=== PATIENT | male | born 1940 | race Caucasian/White ===

== ENCOUNTER 2016-04-07 10:24 | Emergency (ER) | payer MEDICARE, OTHER ==
[~2016-04-07 10:24] MED LIST: ACET65TA OR; ALPHAGAN OS; ASPI325T OR; FURO20TA2 OR; GLUC1000 OR; ISOS30BRAN OR; MILKSUS OR; MIRAPEX PO; MULTIVIT PO; NITROSTAT SL; OMEP20TA7 OR; POTA10CA2 OR; PRAV10TA2 OR; SYNT175T OR; TIMO0.5S3 OU; UROXATRAL PO; VICO5TAB OR; ZOLO25TA OR; [UNRECOGNIZED DRUG - OTHER] PO
[2016-04-07 12:01] LABS: ANION GAP 9 MEQ/L (8-16); BLOOD UREA NITROGEN 22 MG/DL (7-18); CALCIUM LEVEL 8.8 MG/DL (8.8-10.2); CARBON DIOXIDE LEVEL 27 MEQ/L (21-32); CHLORIDE LEVEL 106 MEQ/L (98-107); CREATININE FOR GFR 0.97 MG/DL (0.70-1.30); GLOMERULAR FILTRATION RATE > 60.0 (>42); GLUCOSE, FASTING 103 MG/DL (83-110); POTASSIUM SERUM 4.4 MEQ/L (3.5-5.1); SODIUM LEVEL 142 MEQ/L (136-145)
[2016-04-07 12:07] LABS: BASO % 0.7 % (0.0-1.0); EOS # 0.5 K/mm3 (0.0-0.50); EOS % 9.5 % (0.0-3.0); LARGE UNSTAINED CELL # 0.1 K/mm3 (0.0-0.4); LARGE UNSTAINED CELL % 2.2 % (0.0-4.0); LYMPH # 1.8 K/mm3 (1.5-4.5); LYMPH % 33.5 % (24.0-44.0); MEAN CORPUSCULAR HEMOGLOBIN 31.7 pg (27.0-33.0); MEAN CORPUSCULAR HGB CONC 33.9 g/dl (32.0-36.5); MEAN CORPUSCULAR VOLUME 93.7 fl (80.0-96.0); MONO # 0.2 K/mm3 (0.0-0.8); NEUTROPHILS # 2.7 K/mm3 (1.8-7.7); NEUTROPHILS % 50.2 % (36.0-66.0); PLATELET COUNT, AUTOMATED 165 k/mm3 (150-450); RED CELL DISTRIBUTION WIDTH 12.3 % (11.5-14.5); WHITE BLOOD COUNT 5.5 K/mm3 (4.0-10.0)
--- NOTE | 2016-04-07 12:32 | REP ---
CT abdomen pelvis without IV or oral contrast: History: Left flank pain. History of kidney stones. Comparison CT study is from September 12, 2011. CT findings: Preliminary dockmaster radiographs demonstrate clips in the upper abdomen and in the pelvis. The bowel gas pattern is unremarkable. The lung bases are clear. The liver and the spleen are normal in size and homogeneous in texture. There are clips in the gallbladder fossa. A small sliding-type hiatal hernia is noted. No adrenal lesion is seen on either side. Normal caliber aorta is seen with vascular calcification. No hydronephrosis is seen on either side. No intrarenal calculus is seen. There is some cortical atrophy bilaterally. Small and large intestinal bowel loops are normal in the upper abdomen. No abdominal wall defect is seen. Postoperative changes are seen in the mid abdomen anteriorly in the periumbilical region. There is left colonic diverticulosis. A rectosigmoid colonic anastomosis is seen. Some surgical clips are noted in this region. No pelvic mass or pelvic adenopathy is seen. There are a few dystrophic calcifications in the prostate. Urinary bladder is unremarkable. No CT evidence of diverticulitis is seen. There are scattered normal-sized inguinal lymph nodes bilaterally. No adenopathy seen. Impression: No urinary tract calculus or hydronephrosis seen. Post cholecystectomy and left colonic resection and reanastomosis. Left colonic diverticulosis. No acute intra-abdominal abnormality. Small sliding-type hiatal hernia. Signed by Juan Silverman MD 04/07/2016 02:33 P
--- NOTE | 2016-04-07 12:50 | EDDOCDS ---
Physician Documentation [facility] Name: Sid Malik Age: 75 yrs Sex: Male : 1940 Arrival Date: 04/07/2016 Time: 10:24 Bed I2 / M2 Private MD: Omer Pollard Disposition: 04/07/16 12:39 Discharged to Home/Self Care. Impression: Low back pain - left flank pain. - Condition is Stable. - Discharge Instructions: Back Pain, Adult, Musculoskeletal Pain. - Prescriptions for Tylenol- Codeine #3 300-30 mg Oral Tablet - take 1 tablet by ORAL route every 6 hours As needed MDD: 4 tabs; 12 tablet. - Medication Reconciliation, Local Pharmacy Hours form. - Follow up: Emergency Department; When: As needed; Reason: Worsening of conditions. Follow up: Private Physician; When: 2 - 3 days; Reason: Wound/Symptom Recheck, Recheck today's complaints, Continuance of care. - Problem is new. - Symptoms have improved. Historical: - Allergies: Beta-Blockers (Beta-Adrenergic Blocking Agts); contrast media; IODINEIODINE CONTAINING; - Home Meds: 1. alfuzosin 10 mg oral Tb24 1 tab once daily 2. aspirin 325 mg Oral tab 1 tab once daily 3. Centrum oral Unknown daily 4. furosemide 20 mg Oral tab 1 tab once daily 5. isosorbide mononitrate 30 mg Oral Tb24 1 tab once daily 6. Klor-Con 10 10 mEq Oral TbER 1 tab once daily 7. levothyroxine 112 mcg Oral tab 2 tabs once daily 8. Nitrostat 0.4 mg SL subl 1 tab prn 9. omeprazole 20 mg Oral cpDR 1 cap once daily 10. pramipexole 2.25 mg oral Tb24 once daily 11. pravastatin 20 mg oral tab 1 tab once daily 12. travatan 0.004% 1 drop both eyes 13. Zoloft 100 mg Oral tab 1 tab once daily - PMHx: Allergic Rhinitis; CAD; Diabetes Mellitus; Dysthymia; GERD; Glaucoma; Hypercholesterolemia; Hypothyroidism; nephrolithiasis; obstructive uropathy; restless leg syndrome; sleep apnea; temporal arteritis; Kidney stones; Colon cancer; - PSHx: Umbilical hernia repair; Cholecystectomy; Colon resection; Cardiac stents; Cataract Surgery- Bilateral; - Social history: Smoking status: Patient states was never smoker of tobacco. No barriers to communication noted, The patient speaks fluent Scottish. - Family history: Not pertinent. - : The pt / caregiver states he / she is not on anticoagulants. Home medication list is obtained from the patient. - Exposure Risk Screening:: None identified. Vital Signs: 04/07 10:26 BP 147 / 64; Pulse 61; Resp 16; Temp 97(O); Pulse Ox 97% ; Weight 95.25 kg / 209.99 cmb lbs; Height 5 ft. 4 in. (162.56 cm); Pain 7/10; 12:42 BP 122 / 74; Pulse 53; Resp 20; Temp 97.6; Pulse Ox 98% ; Pain 0/10; jam1 10:26 Body Mass Index 36.05 (95.25 kg, 162.56 cm) cmb MDM: 11:15 IV Saline Lock ordered. dt4 11:16 CT ABD & PELVIS: No Contrast Ordered. EDMS 11:16 CBC with Diff Ordered. EDMS 11:16 Basic Metabolic Profile Ordered. EDMS 11:16 Urinalysis Ordered. EDMS 11:16 Urine Culture Ordered. EDMS 11:47 Financial registration complete. lg Signatures: Dispatcher [employer] EDMS Eliot Rosenthal, RN RN Attila Stoner, Scott Reg Lexus Ball PA-C PA-C dt4 Junior Angelo,RN RN jf3 MTDD
--- NOTE | 2016-04-07 12:50 | EDDOCDS ---
Nurse's Notes [facility] Name: Sid Malik Age: 75 yrs Sex: Male : 1940 Arrival Date: 04/07/2016 Time: 10:24 Bed I2 / M2 Private MD: Omer Pollard Diagnosis: Low back pain-left flank pain Presentation: 04/07 10:38 Presenting complaint: Patient states: Left low to mid back pain for 5 days, no injury. dw Adult Sepsis Screening: The patient does not have new or worsening altered mentation. Patient's respiratory rate is less than 22. Systolic blood pressure is greater than 100. Patient has a qSOFA score of 0- Negative Sepsis Screen. Suicide/Homicide risk assessment- the patient denies having any suicidal and/or homicidal ideations and does not present with any other emotional, behavioral or mental health complaints. 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 Transition of care: patient was not received from another setting of care. 10:38 Acuity: LALO Level 3 [facility] 10:38 Method Of Arrival: Walkin/Carried/Asstd dwg Triage Assessment: 10:43 General: Appears in no apparent distress. Pain: Pain currently is 7 out of 10 on a pain dwg scale. Historical: - Allergies: Beta-Blockers (Beta-Adrenergic Blocking Agts); contrast media; IODINEIODINE CONTAINING; - Home Meds: 1. alfuzosin 10 mg oral Tb24 1 tab once daily 2. aspirin 325 mg Oral tab 1 tab once daily 3. Centrum oral Unknown daily 4. furosemide 20 mg Oral tab 1 tab once daily 5. isosorbide mononitrate 30 mg Oral Tb24 1 tab once daily 6. Klor-Con 10 10 mEq Oral TbER 1 tab once daily 7. levothyroxine 112 mcg Oral tab 2 tabs once daily 8. Nitrostat 0.4 mg SL subl 1 tab prn 9. omeprazole 20 mg Oral cpDR 1 cap once daily 10. pramipexole 2.25 mg oral Tb24 once daily 11. pravastatin 20 mg oral tab 1 tab once daily 12. travatan 0.004% 1 drop both eyes 13. Zoloft 100 mg Oral tab 1 tab once daily - PMHx: Allergic Rhinitis; CAD; Diabetes Mellitus; Dysthymia; GERD; Glaucoma; Hypercholesterolemia; Hypothyroidism; nephrolithiasis; obstructive uropathy; restless leg syndrome; sleep apnea; temporal arteritis; Kidney stones; Colon cancer; - PSHx: Umbilical hernia repair; Cholecystectomy; Colon resection; Cardiac stents; Cataract Surgery- Bilateral; - Social history: Smoking status: Patient states was never smoker of tobacco. No barriers to communication noted, The patient speaks fluent Thai. - Family history: Not pertinent. - : The pt / caregiver states he / she is not on anticoagulants. Home medication list is obtained from the patient. - Exposure Risk Screening:: None identified. Screenin:26 Infection Control. cmb 12:47 Screening information is obtained from the patient. Fall risk: No risks identified. jf3 Assistance ADL's: requires no assistance with activities of daily living. Abuse/DV Screen: The patient / caregiver reports he/she is: not in a situation that causes fear, pain or injury. Nutritional screening: No deficits noted. Advance Directives: There is no active DNR order. home support is adequate. Assessment: 11:42 Adult Sepsis Screening: The patient does not have new or worsening altered mentation. jf3 Patient's respiratory rate is less than 22. Systolic blood pressure is greater than 100. Patient has a qSOFA score of 0- Negative Sepsis Screen. General: Appears in no apparent distress, comfortable, Behavior is cooperative. General: pt states back pain increases with twisting motion. Pain: Location: left low back and left mid back Pain currently is 1 out of 10 on a pain scale. At worst was 8 out of 10 on a pain scale. Neurological: Level of Consciousness is awake, alert, Oriented to person, place, time. Cardiovascular: Capillary refill < 3 seconds Heart tones S1 S2 present Chest pain is denied. Respiratory: Airway is patent Respiratory effort is even, unlabored, Respiratory pattern is regular, symmetrical, Breath sounds are clear bilaterally. Respiratory: Denies shortness of breath. GI: Abdomen is obese, Bowel sounds present X 4 quads. Abd is soft and non tender X 4 quads. GI: Denies diarrhea, nausea, vomiting. Derm: Skin is normal. 12:47 General: Appears in no apparent distress, comfortable, Behavior is cooperative. Pain: jf3 Pain currently is 2 out of 10 on a pain scale. Neurological: Level of Consciousness is awake, alert, Oriented to person, place, time. Cardiovascular: Capillary refill < 3 seconds Chest pain is denied. Respiratory: Airway is patent Respiratory effort is even, unlabored, Respiratory pattern is regular, symmetrical. Derm: Skin is normal. Vital Signs: 10:26 BP 147 / 64; Pulse 61; Resp 16; Temp 97(O); Pulse Ox 97% ; Weight 95.25 kg; Height 5 cmb ft. 4 in. (162.56 cm); Pain 7/10; 12:42 BP 122 / 74; Pulse 53; Resp 20; Temp 97.6; Pulse Ox 98% ; Pain 0/10; jam1 10:26 Body Mass Index 36.05 (95.25 kg, 162.56 cm) cmb Vitals: 10:26 Log In Time: April 07, 2016 at 10:24. cmb ED Course: 10:25 Patient visited by Eva Blank. cmb 10:25 Omer Pollard is Private Physician. cmb 10:25 Patient moved to Waiting cmb 10:28 Patient moved to Pre RCE cmb 10:41 Triage Initiated dwg 10:58 Patient moved to Triage 2 srm 11:01 Lexus Redding [facility]. dt4 11:01 Henrique Rowland MD is Attending Physician. dt4 11:01 Patient visited by Lexus Redding PA-C. dt4 11:20 Patient moved to I2 / M2 mb9 11:21 Urinalysis Sent. mb9 11:21 Urine Culture Sent. mb9 11:40 CBC with Diff Sent. dsf 11:40 Basic Metabolic Profile Sent. dsf 11:42 The patient / caregiver is instructed regarding the plan of care and ED course. jf3 11:42 Inserted saline lock: 20 gauge in right antecubital area The patient tolerated the jf3 procedure well. No procedures done that require assistance. 11:44 Patient visited by Junior Angelo RN. jf3 12:47 Discontinued IV lock intact, bleeding controlled, pressure dressing applied, No jf3 redness/swelling at site. Order Results: Lab Order: CBC with Diff; SPEC'M 04/07/16 11:34 Test: WHITE BLOOD COUNT; Value: 5.5; Range: 4.0-10.0; Units: K/mm3; Status: F Test: RED BLOOD COUNT; Value: 4.36; Range: 4.30-6.10; Units: M/mm3; Status: F Test: HEMOGLOBIN; Value: 13.8; Range: 14.0-18.0; Abnormal: Below low normal; Units: g/dl; Status: F Test: HEMATOCRIT; Value: 40.8; Range: 42.0-52.0; Abnormal: Below low normal; Units: %; Status: F Test: MEAN CORPUSCULAR VOLUME; Value: 93.7; Range: 80.0-96.0; Units: fl; Status: F Test: MEAN CORPUSCULAR HEMOGLOBIN; Value: 31.7; Range: 27.0-33.0; Units: pg; Status: F Test: MEAN CORPUSCULAR HGB CONC; Value: 33.9; Range: 32.0-36.5; Units: g/dl; Status: F Test: RED CELL DISTRIBUTION WIDTH; Value: 12.3; Range: 11.5-14.5; Units: %; Status: F Test: PLATELET COUNT, AUTOMATED; Value: 165; Range: 150-450; Units: k/mm3; Status: F Test: NEUTROPHILS %; Value: 50.2; Range: 36.0-66.0; Units: %; Status: F Test: LYMPH %; Value: 33.5; Range: 24.0-44.0; Units: %; Status: F Test: MONO %; Value: 4.0; Range: 0.0-5.0; Units: %; Status: F Test: EOS %; Value: 9.5; Range: 0.0-3.0; Abnormal: Above high normal; Units: %; Status: F Test: BASO %; Value: 0.7; Range: 0.0-1.0; Units: %; Status: F Test: LARGE UNSTAINED CELL %; Value: 2.2; Range: 0.0-4.0; Units: %; Status: F Test: NEUTROPHILS #; Value: 2.7; Range: 1.8-7.7; Units: K/mm3; Status: F Test: LYMPH #; Value: 1.8; Range: 1.5-4.5; Units: K/mm3; Status: F Test: MONO #; Value: 0.2; Range: 0.0-0.8; Units: K/mm3; Status: F Test: EOS #; Value: 0.5; Range: 0.0-0.50; Units: K/mm3; Status: F Test: BASO #; Value: 0.0; Range: 0.0-0.2; Units: K/mm3; Status: F Test: LARGE UNSTAINED CELL #; Value: 0.1; Range: 0.0-0.4; Units: K/mm3; Status: F Lab Order: Basic Metabolic Profile; SPEC'M 04/07/16 11:34 Test: GLUCOSE, FASTING; Value: 103; Range: 83-110; Units: MG/DL; Status: F Test: BLOOD UREA NITROGEN; Value: 22; Range: 7-18; Abnormal: Above high normal; Units: MG/DL; Status: F Test: CREATININE FOR GFR; Value: 0.97; Range: 0.70-1.30; Units: MG/DL; Status: F Test: GLOMERULAR FILTRATION RATE; Value: > 60.0; Range: >42; Status: F Test: SODIUM LEVEL; Value: 142; Range: 136-145; Units: MEQ/L; Status: F Test: POTASSIUM SERUM; Value: 4.4; Range: 3.5-5.1; Units: MEQ/L; Status: F Test: CHLORIDE LEVEL; Value: 106; Range: 98-107; Units: MEQ/L; Status: F Test: CARBON DIOXIDE LEVEL; Value: 27; Range: 21-32; Units: MEQ/L; Status: F Test: ANION GAP; Value: 9; Range: 8-16; Units: MEQ/L; Status: F Test: CALCIUM LEVEL; Value: 8.8; Range: 8.8-10.2; Units: MG/DL; Status: F Test Note: ; Units are mL/min/1.73 m2 Chronic Kidney Disease Staging per NKF: Stage I & II GFR >=60 Normal to Mildly Decreased Stage III GFR 30-59 Moderately Decreased Stage IV GFR 15-29 Severely Decreased Stage V GFR <15 Very Little GFR Left ESRD GFR <15 on [facility] [employer] Lab Order: Urinalysis; SPEC'M 04/07/16 11:17 Test: APPEARANCE, URINE; Value: CLEAR; Range: CLEAR; Status: F Test: COLOR, URINE; Value: YELLOW; Range: YELLOW; Status: F Test: PH,URINE; Value: 5.0; Range: 5.0-9.0; Units: UNITS; Status: F Test: SPECIFIC GRAVITY URINE AUTO; Value: 1.020; Range: 1.002-1.035; Status: F Test: PROTEIN, URINE AUTO; Value: NEGATIVE; Range: NEGATIVE; Units: mg/dL; Status: F Test: GLUCOSE, URINE (UA) AUTO; Value: NEGATIVE; Range: NEGATIVE; Units: mg/dL; Status: F Test: KETONE, URINE AUTO; Value: NEGATIVE; Range: NEGATIVE; Units: mg/dL; Status: F Test: UROBILINOGEN, URINE AUTO; Value: 0.2; Range: 0.0-2.0; Units: mg/dL; Status: F Test: BILIRUBIN, URINE AUTO; Value: NEGATIVE; Range: NEGATIVE; Status: F Test: NITRITE, URINE AUTO; Value: NEGATIVE; Range: NEGATIVE; Status: F Test: LEUKOCYTE ESTERASE, URINE AUTO; Value: NEGATIVE; Range: NEGATIVE; Status: F Test: BLOOD, URINE BLOOD; Value: NEGATIVE; Range: NEGATIVE; Status: F Test: WBC, URINE AUTO; Value: 1; Range: 0-3; Units: /HPF; Status: F Test: RBC, URINE AUTO; Value: 4; Range: 0-3; Abnormal: Above high normal; Units: /HPF; Status: F Test: BACTERIA, URINE AUTO; Value: NEGATIVE; Range: NEGATIVE; Status: F Test: SQUAMOUS EPITHELIAL CELL UR AU; Value: 0; Range: 0-6; Units: /HPF; Status: F Test: MUCUS, URINE; Value: SMALL; Range: NEGATIVE; Status: F Test: HYALINE CAST, URINE AUTO; Value: 0; Range: 0-1; Units: /LPF; Status: F Outcome: 12:39 Discharge ordered by Provider. dt4 12:48 Discharge Assessment: Patient awake, alert and oriented x 3. No cognitive and/or jf3 functional deficits noted. Patient verbalized understanding of disposition instructions. patient administered narcotics - no. The following High Risk Discharge criteria are identified: None. Discharged to home via wheelchair. Condition: good. Discharge instructions given to patient, Instructed on discharge instructions, follow up and referral plans. medication usage, no driving heavy equipment, Demonstrated understanding of instructions, medications, Pt was receptive of discharge instructions/ teaching. CT Study completed. Property :Personal belongings accompany Pt. 12:49 Patient left the ED. jf3 Signatures: Eliot Rosenthal, RN RN clarissag Maryann Hyatt, RN RN Justine Wiley, JUANY TUBE DEPATCHER jam1 María Ordonez,RN RN dsf Eva Blank Diane, PA-C PA-C dt4 Arturo MeierRN RN mb9 Junior AngeloRN RN jf3 MTDD
--- NOTE | 2016-04-09 13:50 | EDDOCDS ---
Nurse's Notes [facility] Name: Sid Malik Age: 75 yrs Sex: Male : 1940 Arrival Date: 04/07/2016 Time: 10:24 Bed I2 / M2 Private MD: Omer Pollard Diagnosis: Low back pain-left flank pain Presentation: 04/07 10:38 Presenting complaint: Patient states: Left low to mid back pain for 5 days, no injury. dw Adult Sepsis Screening: The patient does not have new or worsening altered mentation. Patient's respiratory rate is less than 22. Systolic blood pressure is greater than 100. Patient has a qSOFA score of 0- Negative Sepsis Screen. Suicide/Homicide risk assessment- the patient denies having any suicidal and/or homicidal ideations and does not present with any other emotional, behavioral or mental health complaints. Status: Patient is not a information services assistant or dependent. Transition of care: patient was not received from another setting of care. 10:38 Acuity: LALO Level 3 [facility] 10:38 Method Of Arrival: Walkin/Carried/Asstd dwg Triage Assessment: 10:43 General: Appears in no apparent distress. Pain: Pain currently is 7 out of 10 on a pain dwg scale. Historical: - Allergies: Beta-Blockers (Beta-Adrenergic Blocking Agts); contrast media; IODINEIODINE CONTAINING; - Home Meds: 1. alfuzosin 10 mg oral Tb24 1 tab once daily 2. aspirin 325 mg Oral tab 1 tab once daily 3. Centrum oral Unknown daily 4. furosemide 20 mg Oral tab 1 tab once daily 5. isosorbide mononitrate 30 mg Oral Tb24 1 tab once daily 6. Klor-Con 10 10 mEq Oral TbER 1 tab once daily 7. levothyroxine 112 mcg Oral tab 2 tabs once daily 8. Nitrostat 0.4 mg SL subl 1 tab prn 9. omeprazole 20 mg Oral cpDR 1 cap once daily 10. pramipexole 2.25 mg oral Tb24 once daily 11. pravastatin 20 mg oral tab 1 tab once daily 12. travatan 0.004% 1 drop both eyes 13. Zoloft 100 mg Oral tab 1 tab once daily - PMHx: Allergic Rhinitis; CAD; Diabetes Mellitus; Dysthymia; GERD; Glaucoma; Hypercholesterolemia; Hypothyroidism; nephrolithiasis; obstructive uropathy; restless leg syndrome; sleep apnea; temporal arteritis; Kidney stones; Colon cancer; - PSHx: Umbilical hernia repair; Cholecystectomy; Colon resection; Cardiac stents; Cataract Surgery- Bilateral; - Social history: Smoking status: Patient states was never smoker of tobacco. No barriers to communication noted, The patient speaks fluent Khmer. - Family history: Not pertinent. - : The pt / caregiver states he / she is not on anticoagulants. Home medication list is obtained from the patient. - Exposure Risk Screening:: None identified. Screenin:26 Infection Control. cmb 12:47 Screening information is obtained from the patient. Fall risk: No risks identified. jf3 Assistance ADL's: requires no assistance with activities of daily living. Abuse/DV Screen: The patient / caregiver reports he/she is: not in a situation that causes fear, pain or injury. Nutritional screening: No deficits noted. Advance Directives: There is no active DNR order. home support is adequate. Assessment: 11:42 Adult Sepsis Screening: The patient does not have new or worsening altered mentation. jf3 Patient's respiratory rate is less than 22. Systolic blood pressure is greater than 100. Patient has a qSOFA score of 0- Negative Sepsis Screen. General: Appears in no apparent distress, comfortable, Behavior is cooperative. General: pt states back pain increases with twisting motion. Pain: Location: left low back and left mid back Pain currently is 1 out of 10 on a pain scale. At worst was 8 out of 10 on a pain scale. Neurological: Level of Consciousness is awake, alert, Oriented to person, place, time. Cardiovascular: Capillary refill < 3 seconds Heart tones S1 S2 present Chest pain is denied. Respiratory: Airway is patent Respiratory effort is even, unlabored, Respiratory pattern is regular, symmetrical, Breath sounds are clear bilaterally. Respiratory: Denies shortness of breath. GI: Abdomen is obese, Bowel sounds present X 4 quads. Abd is soft and non tender X 4 quads. GI: Denies diarrhea, nausea, vomiting. Derm: Skin is normal. 12:47 General: Appears in no apparent distress, comfortable, Behavior is cooperative. Pain: jf3 Pain currently is 2 out of 10 on a pain scale. Neurological: Level of Consciousness is awake, alert, Oriented to person, place, time. Cardiovascular: Capillary refill < 3 seconds Chest pain is denied. Respiratory: Airway is patent Respiratory effort is even, unlabored, Respiratory pattern is regular, symmetrical. Derm: Skin is normal. Vital Signs: 10:26 BP 147 / 64; Pulse 61; Resp 16; Temp 97(O); Pulse Ox 97% ; Weight 95.25 kg; Height 5 cmb ft. 4 in. (162.56 cm); Pain 7/10; 12:42 BP 122 / 74; Pulse 53; Resp 20; Temp 97.6; Pulse Ox 98% ; Pain 0/10; jam1 10:26 Body Mass Index 36.05 (95.25 kg, 162.56 cm) cmb Vitals: 10:26 Log In Time: April 07, 2016 at 10:24. cmb ED Course: 10:25 Patient visited by Eva Blank. cmb 10:25 Omer Pollard is Private Physician. cmb 10:25 Patient moved to Waiting cmb 10:28 Patient moved to Pre RCE cmb 10:41 Triage Initiated dwg 10:58 Patient moved to Triage 2 srm 11:01 [facility] dt4 11:01 Henrique Rowland MD is Attending Physician. dt4 11:01 Patient visited by Lexus Redding PA-C. dt4 11:20 Patient moved to I2 / M2 mb9 11:21 Urinalysis Sent. mb9 11:21 Urine Culture Sent. mb9 11:40 CBC with Diff Sent. dsf 11:40 Basic Metabolic Profile Sent. dsf 11:42 The patient / caregiver is instructed regarding the plan of care and ED course. jf3 11:42 Inserted saline lock: 20 gauge in right antecubital area The patient tolerated the jf3 procedure well. No procedures done that require assistance. 11:44 Patient visited by Junior Angelo RN. jf3 12:47 Discontinued IV lock intact, bleeding controlled, pressure dressing applied, No jf3 redness/swelling at site. 13:17 CT ABD & PELVIS: No Contrast Returned. EDMS 13:25 [facility] [place] Agreement was scanned into [employer] and attached to record. lg 04/08 10:01 T-Sheet-- Draft Copy was scanned into [employer] and attached to record. gb 10:01 Radiology Report was scanned into [employer] and attached to record. gb Order Results: Lab Order: CBC with Diff; SPEC'M 04/07/16 11:34 Test: WHITE BLOOD COUNT; Value: 5.5; Range: 4.0-10.0; Units: K/mm3; Status: F Test: RED BLOOD COUNT; Value: 4.36; Range: 4.30-6.10; Units: M/mm3; Status: F Test: HEMOGLOBIN; Value: 13.8; Range: 14.0-18.0; Abnormal: Below low normal; Units: g/dl; Status: F Test: HEMATOCRIT; Value: 40.8; Range: 42.0-52.0; Abnormal: Below low normal; Units: %; Status: F Test: MEAN CORPUSCULAR VOLUME; Value: 93.7; Range: 80.0-96.0; Units: fl; Status: F Test: MEAN CORPUSCULAR HEMOGLOBIN; Value: 31.7; Range: 27.0-33.0; Units: pg; Status: F Test: MEAN CORPUSCULAR HGB CONC; Value: 33.9; Range: 32.0-36.5; Units: g/dl; Status: F Test: RED CELL DISTRIBUTION WIDTH; Value: 12.3; Range: 11.5-14.5; Units: %; Status: F Test: PLATELET COUNT, AUTOMATED; Value: 165; Range: 150-450; Units: k/mm3; Status: F Test: NEUTROPHILS %; Value: 50.2; Range: 36.0-66.0; Units: %; Status: F Test: LYMPH %; Value: 33.5; Range: 24.0-44.0; Units: %; Status: F Test: MONO %; Value: 4.0; Range: 0.0-5.0; Units: %; Status: F Test: EOS %; Value: 9.5; Range: 0.0-3.0; Abnormal: Above high normal; Units: %; Status: F Test: BASO %; Value: 0.7; Range: 0.0-1.0; Units: %; Status: F Test: LARGE UNSTAINED CELL %; Value: 2.2; Range: 0.0-4.0; Units: %; Status: F Test: NEUTROPHILS #; Value: 2.7; Range: 1.8-7.7; Units: K/mm3; Status: F Test: LYMPH #; Value: 1.8; Range: 1.5-4.5; Units: K/mm3; Status: F Test: MONO #; Value: 0.2; Range: 0.0-0.8; Units: K/mm3; Status: F Test: EOS #; Value: 0.5; Range: 0.0-0.50; Units: K/mm3; Status: F Test: BASO #; Value: 0.0; Range: 0.0-0.2; Units: K/mm3; Status: F Test: LARGE UNSTAINED CELL #; Value: 0.1; Range: 0.0-0.4; Units: K/mm3; Status: F Lab Order: Basic Metabolic Profile; [facility]'M 04/07/16 11:34 Test: GLUCOSE, FASTING; Value: 103; Range: 83-110; Units: MG/DL; Status: F Test: BLOOD UREA NITROGEN; Value: 22; Range: 7-18; Abnormal: Above high normal; Units: MG/DL; Status: F Test: CREATININE FOR GFR; Value: 0.97; Range: 0.70-1.30; Units: MG/DL; Status: F Test: GLOMERULAR FILTRATION RATE; Value: > 60.0; Range: >42; Status: F Test: SODIUM LEVEL; Value: 142; Range: 136-145; Units: MEQ/L; Status: F Test: POTASSIUM SERUM; Value: 4.4; Range: 3.5-5.1; Units: MEQ/L; Status: F Test: CHLORIDE LEVEL; Value: 106; Range: 98-107; Units: MEQ/L; Status: F Test: CARBON DIOXIDE LEVEL; Value: 27; Range: 21-32; Units: MEQ/L; Status: F Test: ANION GAP; Value: 9; Range: 8-16; Units: MEQ/L; Status: F Test: CALCIUM LEVEL; Value: 8.8; Range: 8.8-10.2; Units: MG/DL; Status: F Test Note: ; Units are mL/min/1.73 m2 Chronic Kidney Disease Staging per NKF: Stage I & II GFR >=60 Normal to Mildly Decreased Stage III GFR 30-59 Moderately Decreased Stage IV GFR 15-29 Severely Decreased Stage V GFR <15 Very Little GFR Left ESRD GFR <15 on NURSE LICENSED PRACTICAL Lab Order: Urinalysis; SPEC'M 04/07/16 11:17 Test: APPEARANCE, URINE; Value: CLEAR; Range: CLEAR; Status: F Test: COLOR, URINE; Value: YELLOW; Range: YELLOW; Status: F Test: PH,URINE; Value: 5.0; Range: 5.0-9.0; Units: UNITS; Status: F Test: SPECIFIC GRAVITY URINE AUTO; Value: 1.020; Range: 1.002-1.035; Status: F Test: PROTEIN, URINE AUTO; Value: NEGATIVE; Range: NEGATIVE; Units: mg/dL; Status: F Test: GLUCOSE, URINE (UA) AUTO; Value: NEGATIVE; Range: NEGATIVE; Units: mg/dL; Status: F Test: KETONE, URINE AUTO; Value: NEGATIVE; Range: NEGATIVE; Units: mg/dL; Status: F Test: UROBILINOGEN, URINE AUTO; Value: 0.2; Range: 0.0-2.0; Units: mg/dL; Status: F Test: BILIRUBIN, URINE AUTO; Value: NEGATIVE; Range: NEGATIVE; Status: F Test: NITRITE, URINE AUTO; Value: NEGATIVE; Range: NEGATIVE; Status: F Test: LEUKOCYTE ESTERASE, URINE AUTO; Value: NEGATIVE; Range: NEGATIVE; Status: F Test: BLOOD, URINE BLOOD; Value: NEGATIVE; Range: NEGATIVE; Status: F Test: WBC, URINE AUTO; Value: 1; Range: 0-3; Units: /HPF; Status: F Test: RBC, URINE AUTO; Value: 4; Range: 0-3; Abnormal: Above high normal; Units: /HPF; Status: F Test: BACTERIA, URINE AUTO; Value: NEGATIVE; Range: NEGATIVE; Status: F Test: SQUAMOUS EPITHELIAL CELL UR AU; Value: 0; Range: 0-6; Units: /HPF; Status: F Test: MUCUS, URINE; Value: SMALL; Range: NEGATIVE; Status: F Test: HYALINE CAST, URINE AUTO; Value: 0; Range: 0-1; Units: /LPF; Status: F Lab Order: Urine Culture; SPEC'M 04/07/16 11:17 Test: URINE CULTURE; Value: URINE CULTURE RESULT NO GROWTH; Status: F Radiology Order: CT ABD & PELVIS: No Contrast Test: CT ABD & PELVIS: No Contrast REASON FOR EXAMINATION: left flank pain, hx of stones; CT abdomen pelvis without IV or oral contrast:; ; History: Left flank pain. History of kidney stones.; ; Comparison CT study is from September 12, 2011.; ; CT findings: Preliminary senior test engineer radiographs demonstrate clips in the upper; abdomen and in the pelvis. The bowel gas pattern is unremarkable. The lung; bases are clear. The liver and the spleen are normal in size and homogeneous in; texture. There are clips in the gallbladder fossa. A small sliding-type hiatal; hernia is noted. No adrenal lesion is seen on either side. Normal caliber aorta; is seen with vascular calcification.; ; No hydronephrosis is seen on either side. No intrarenal calculus is seen. There; is some cortical atrophy bilaterally. Small and large intestinal bowel loops are; normal in the upper abdomen. No abdominal wall defect is seen. Postoperative; changes are seen in the mid abdomen anteriorly in the periumbilical region.; There is left colonic diverticulosis. A rectosigmoid colonic anastomosis is; seen. Some surgical clips are noted in this region. No pelvic mass or pelvic; adenopathy is seen. There are a few dystrophic calcifications in the prostate.; Urinary bladder is unremarkable. No CT evidence of diverticulitis is seen.; There are scattered normal-sized inguinal lymph nodes bilaterally. No adenopathy; seen.; ; Impression:; ; No urinary tract calculus or hydronephrosis seen. Post cholecystectomy and left; colonic resection and reanastomosis. Left colonic diverticulosis. No acute; intra-abdominal abnormality. Small sliding-type hiatal hernia.; ; ; Signed by; Juan Silverman MD 04/07/2016 02:33 P; Outcome: 04/07 12:39 Discharge ordered by Provider. dt4 12:48 Discharge Assessment: Patient awake, alert and oriented x 3. No cognitive and/or jf3 functional deficits noted. Patient verbalized understanding of disposition instructions. patient administered narcotics - no. The following High Risk Discharge criteria are identified: None. Discharged to home via wheelchair. Condition: good. Discharge instructions given to patient, Instructed on discharge instructions, follow up and referral plans. medication usage, no driving heavy equipment, Demonstrated understanding of instructions, medications, Pt was receptive of discharge instructions/ teaching. CT Study completed. Property :Personal belongings accompany Pt. 12:49 Patient left the ED. jf3 Signatures: Dispatcher [employer] EDMS Eliot Rosenthal, RN RN Maryann Cantu, RN RN Justine Wiley, JUANY CONSERVATION TECHNICIAN jam1 Alaina Romero, Reg Reg gb KirstinAttila gould, Reg Reg lg María Ordonez,RN RN Eva Callahan Diane, PA-C PA-C dt4 Arturo Meier RN RN mb9 Junior AngeloRN RN jf3 Chart Complete MTDD
--- NOTE | 2016-04-09 13:50 | EDDOCDS ---
Physician Documentation [facility] Name: Sid Malik Age: 75 yrs Sex: Male : 1940 Arrival Date: 04/07/2016 Time: 10:24 Bed I2 / M2 Private MD: Omer Pollard Disposition: 04/07/16 12:39 Discharged to Home/Self Care. Impression: Low back pain - left flank pain. - Condition is Stable. - Discharge Instructions: Back Pain, Adult, Musculoskeletal Pain. - Prescriptions for Tylenol- Codeine #3 300-30 mg Oral Tablet - take 1 tablet by ORAL route every 6 hours As needed MDD: 4 tabs; 12 tablet. - Medication Reconciliation, Local Pharmacy Hours form. - Follow up: Emergency Department; When: As needed; Reason: Worsening of conditions. Follow up: Private Physician; When: 2 - 3 days; Reason: Wound/Symptom Recheck, Recheck today's complaints, Continuance of care. - Problem is new. - Symptoms have improved. Historical: - Allergies: Beta-Blockers (Beta-Adrenergic Blocking Agts); contrast media; IODINEIODINE CONTAINING; - Home Meds: 1. alfuzosin 10 mg oral Tb24 1 tab once daily 2. aspirin 325 mg Oral tab 1 tab once daily 3. Centrum oral Unknown daily 4. furosemide 20 mg Oral tab 1 tab once daily 5. isosorbide mononitrate 30 mg Oral Tb24 1 tab once daily 6. Klor-Con 10 10 mEq Oral TbER 1 tab once daily 7. levothyroxine 112 mcg Oral tab 2 tabs once daily 8. Nitrostat 0.4 mg SL subl 1 tab prn 9. omeprazole 20 mg Oral cpDR 1 cap once daily 10. pramipexole 2.25 mg oral Tb24 once daily 11. pravastatin 20 mg oral tab 1 tab once daily 12. travatan 0.004% 1 drop both eyes 13. Zoloft 100 mg Oral tab 1 tab once daily - PMHx: Allergic Rhinitis; CAD; Diabetes Mellitus; Dysthymia; GERD; Glaucoma; Hypercholesterolemia; Hypothyroidism; nephrolithiasis; obstructive uropathy; restless leg syndrome; sleep apnea; temporal arteritis; Kidney stones; Colon cancer; - PSHx: Umbilical hernia repair; Cholecystectomy; Colon resection; Cardiac stents; Cataract Surgery- Bilateral; - Social history: Smoking status: Patient states was never smoker of tobacco. No barriers to communication noted, The patient speaks fluent Palauan. - Family history: Not pertinent. - : The pt / caregiver states he / she is not on anticoagulants. Home medication list is obtained from the patient. - Exposure Risk Screening:: None identified. Vital Signs: 04/07 10:26 BP 147 / 64; Pulse 61; Resp 16; Temp 97(O); Pulse Ox 97% ; Weight 95.25 kg / 209.99 cmb lbs; Height 5 ft. 4 in. (162.56 cm); Pain 7/10; 12:42 BP 122 / 74; Pulse 53; Resp 20; Temp 97.6; Pulse Ox 98% ; Pain 0/10; jam1 10:26 Body Mass Index 36.05 (95.25 kg, 162.56 cm) cmb MDM: 11:15 IV Saline Lock ordered. dt4 11:16 CT ABD & PELVIS: No Contrast Ordered. EDMS 11:16 CBC with Diff Ordered. EDMS 11:16 Basic Metabolic Profile Ordered. EDMS 11:16 Urinalysis Ordered. EDMS 11:16 Urine Culture Ordered. EDMS 11:47 Financial registration complete. lg 13:25 [facility] Payment Agreement was scanned into [employer] and attached to record. lg 04/08 10:01 T-Sheet-- Draft Copy was scanned into [employer] and attached to record. gb 10:01 Radiology Report was scanned into [employer] and attached to record. gb Signatures: Dispatcher [employer] EDMS Eliot Rosenthal RN RN dw Alaina Romero, Reg Reg gb Attila Cali, Reg Reg lg Lexus Redding, PA-C PARebeccaC dt4 Junior Angelo RN RN jf3 The chart was reviewed and I authenticate all verbal orders and agree with the evaluation and treatment provided.Attachments: 04/07 13:25 [facility] [place] lg 04/08 10:01 T-Sheet-- Draft Copy gb Chart Complete MTDD
--- NOTE | 2016-04-09 13:50 | EDDOCDS ---
Physician Documentation [facility] Name: Sid Malik Age: 75 yrs Sex: Male : 1940 Arrival Date: 04/07/2016 Time: 10:24 Bed I2 / M2 Private MD: Omer Pollard Disposition: 04/07/16 12:39 Discharged to Home/Self Care. Impression: Low back pain - left flank pain. - Condition is Stable. - Discharge Instructions: Back Pain, Adult, Musculoskeletal Pain. - Prescriptions for Tylenol- Codeine #3 300-30 mg Oral Tablet - take 1 tablet by ORAL route every 6 hours As needed MDD: 4 tabs; 12 tablet. - Medication Reconciliation, Local Pharmacy Hours form. - Follow up: Emergency Department; When: As needed; Reason: Worsening of conditions. Follow up: Private Physician; When: 2 - 3 days; Reason: Wound/Symptom Recheck, Recheck today's complaints, Continuance of care. - Problem is new. - Symptoms have improved. Historical: - Allergies: Beta-Blockers (Beta-Adrenergic Blocking Agts); contrast media; IODINEIODINE CONTAINING; - Home Meds: 1. alfuzosin 10 mg oral Tb24 1 tab once daily 2. aspirin 325 mg Oral tab 1 tab once daily 3. Centrum oral Unknown daily 4. furosemide 20 mg Oral tab 1 tab once daily 5. isosorbide mononitrate 30 mg Oral Tb24 1 tab once daily 6. Klor-Con 10 10 mEq Oral TbER 1 tab once daily 7. levothyroxine 112 mcg Oral tab 2 tabs once daily 8. Nitrostat 0.4 mg SL subl 1 tab prn 9. omeprazole 20 mg Oral cpDR 1 cap once daily 10. pramipexole 2.25 mg oral Tb24 once daily 11. pravastatin 20 mg oral tab 1 tab once daily 12. travatan 0.004% 1 drop both eyes 13. Zoloft 100 mg Oral tab 1 tab once daily - PMHx: Allergic Rhinitis; CAD; Diabetes Mellitus; Dysthymia; GERD; Glaucoma; Hypercholesterolemia; Hypothyroidism; nephrolithiasis; obstructive uropathy; restless leg syndrome; sleep apnea; temporal arteritis; Kidney stones; Colon cancer; - PSHx: Umbilical hernia repair; Cholecystectomy; Colon resection; Cardiac stents; Cataract Surgery- Bilateral; - Social history: Smoking status: Patient states was never smoker of tobacco. No barriers to communication noted, The patient speaks fluent Ugandan. - Family history: Not pertinent. - : The pt / caregiver states he / she is not on anticoagulants. Home medication list is obtained from the patient. - Exposure Risk Screening:: None identified. Vital Signs: 04/07 10:26 BP 147 / 64; Pulse 61; Resp 16; Temp 97(O); Pulse Ox 97% ; Weight 95.25 kg / 209.99 cmb lbs; Height 5 ft. 4 in. (162.56 cm); Pain 7/10; 12:42 BP 122 / 74; Pulse 53; Resp 20; Temp 97.6; Pulse Ox 98% ; Pain 0/10; jam1 10:26 Body Mass Index 36.05 (95.25 kg, 162.56 cm) cmb MDM: 11:15 IV Saline Lock ordered. dt4 11:16 CT ABD & PELVIS: No Contrast Ordered. EDMS 11:16 CBC with Diff Ordered. EDMS 11:16 Basic Metabolic Profile Ordered. EDMS 11:16 Urinalysis Ordered. EDMS 11:16 Urine Culture Ordered. EDMS 11:47 Financial registration complete. lg 13:25 [facility] Payment Agreement was scanned into [employer] and attached to record. lg 04/08 10:01 T-Sheet-- Draft Copy was scanned into [employer] and attached to record. gb 10:01 Radiology Report was scanned into [employer] and attached to record. gb Signatures: Dispatcher [employer] EDMS Eliot Rosenthal RN RN dw Alaina Romero, Reg Reg gb Attila Cali, Reg Reg lg Lexus Redding, PA-C PARebeccaC dt4 Junior Angelo RN RN jf3 The chart was reviewed and I authenticate all verbal orders and agree with the evaluation and treatment provided.Attachments: 04/07 13:25 [facility] [place] Agreement lg 04/08 10:01 T-Sheet-- Draft Copy gb Chart Complete MTDD
== END 2016-04-07 12:49 | disposition home or self-care (01) ==
LOC: M ED 10:24
DX: M54.9 Dorsalgia, unspecified (principal); J30.9 Allergic rhinitis, unspecified; I25.10 Atherosclerotic heart disease of native coronary artery without angina pectoris; E11.9 Type 2 diabetes mellitus without complications; K21.9 Gastro-esophageal reflux disease without esophagitis; E78.00 Pure hypercholesterolemia, unspecified; E03.9 Hypothyroidism, unspecified; G47.30 Sleep apnea, unspecified; F34.1 Dysthymic disorder; Z87.442 Personal history of urinary calculi; Z85.038 Personal history of other malignant neoplasm of large intestine; N13.9 Obstructive and reflux uropathy, unspecified; G25.81 Restless legs syndrome; Z95.5 Presence of coronary angioplasty implant and graft; Z90.49 Acquired absence of other specified parts of digestive tract; Z79.82 Long term (current) use of aspirin; Z79.899 Other long term (current) drug therapy; Z88.8 Allergy status to other drugs, medicaments and biological substances; Z91.041 Radiographic dye allergy status

== ENCOUNTER → 2016-05-11 | Outpatient (REF) | payer MEDICARE, OTHER ==
[2016-05-11 14:02] LABS: ALBUMIN 3.7 GM/DL (3.2-5.2); ALBUMIN/GLOBULIN RATIO 1.09 (1.00-1.93); ALKALINE PHOSPHATASE 94 U/L (45-117); ALT/SGPT 28 U/L (12-78); ANION GAP 7 MEQ/L (8-16); AST/SGOT 23 U/L (15-37); BILIRUBIN,TOTAL 0.5 MG/DL (0.2-1.0); BLOOD UREA NITROGEN 27 MG/DL (7-18); CALCIUM LEVEL 9.2 MG/DL (8.8-10.2); CARBON DIOXIDE LEVEL 31 MEQ/L (21-32); CHLORIDE LEVEL 107 MEQ/L (98-107); CHOLESTEROL LEVEL 158 MG/DL (<200); CREATININE FOR GFR 1.03 MG/DL (0.70-1.30); GLOMERULAR FILTRATION RATE > 60.0 (>42); GLUCOSE, FASTING 114 MG/DL (83-110); POTASSIUM SERUM 4.5 MEQ/L (3.5-5.1); SODIUM LEVEL 145 MEQ/L (136-145); TOTAL PROTEIN 7.1 GM/DL (6.4-8.2); TRIGLYCERIDES LEVEL 111 MG/DL (<150)
[2016-05-11 14:23] LABS: MEAN CORPUSCULAR HEMOGLOBIN 31.3 pg (27.0-33.0); MEAN CORPUSCULAR HGB CONC 32.9 g/dl (32.0-36.5); MEAN CORPUSCULAR VOLUME 94.9 fl (80.0-96.0); RED CELL DISTRIBUTION WIDTH 12.5 % (11.5-14.5)
== END ==
LOC: M SFHCPLAZ 10:02
PROVIDERS: ATTEND Internal Medicine
DX: G25.81 Restless legs syndrome (principal); E11.9 Type 2 diabetes mellitus without complications; E78.00 Pure hypercholesterolemia, unspecified

== ENCOUNTER → 2016-06-30 | Outpatient (CLI) | payer MEDICARE, OTHER ==
[~2016-06-30] VITALS: Ht 162.6 cm; Wt 99.8 kg
[~2016-06-30] MED LIST changes: +ALFU10TA2 PO; +ASPI325T28 PO; +ISOS30TAB PO; +KLOR20PO12 PO; +LASI20TA PO; +LEVO100T5 PO; +LIDOCAINE 2% INJ 100 MG/5 ML SDV (FOR ANES.) As Ordered ONE; +LR 1,000 ML IV SCH; +META0.52 PO; +NITR4TASL SL; +OMEP40CA2 PO; +PRAV10TA PO; +PROPOFOL 200 MG/20 ML VIAL As Ordered ONE; +SERT-138 PO; +TRAV04OPD OU; +[UNRECOGNIZED DRUG - CODE] PO
[2016-06-30 13:47] VITALS: BP 117/58
--- NOTE | 2016-06-30 14:57 | ROOR ---
Patient Name: Sid Malik Procedure Date: 06/30/2016 12:48 PM Date of : 1940 Age: 75 Room: [facility] Gender: Male Note Status: Finalized Procedure: Colonoscopy Indications: High risk colon cancer surveillance: Personal history of colon cancer, Last colonoscopy: 2012 Providers: Joao Gatica MD Referring MD: Omer Pollard MD Requesting Provider: Medicines: Monitored Anesthesia Care Complications: No immediate complications. Procedure: Pre-Anesthesia Assessment: - Prior to the procedure, a History and Physical was performed, and patient medications and allergies were reviewed. The patient is competent. The risks and benefits of the procedure and the sedation options and risks were discussed with the patient. All questions were answered and informed consent was obtained. Patient identification and proposed procedure were verified by the physician, the nurse and the anesthesiologist in the procedure room. Mental Status Examination: alert and oriented. Airway Examination: normal oropharyngeal airway and neck mobility. CV Examination: regular rate and rhythm. Prophylactic Antibiotics: The patient does not require prophylactic antibiotics. Prior Anticoagulants: The patient has taken no previous anticoagulant or antiplatelet agents. ASA Grade Assessment: III - A patient with severe systemic disease. After reviewing the risks and benefits, the patient was deemed in satisfactory condition to undergo the procedure. The anesthesia plan was to use monitored anesthesia care (MAC). Immediately prior to administration of medications, the patient was re-assessed for adequacy to receive sedatives. The heart rate, respiratory rate, oxygen saturations, blood pressure, adequacy of pulmonary ventilation, and response to care were monitored throughout the procedure. The physical status of the patient was re-assessed after the procedure. The Colonoscope [id number] #[id number] was introduced through the anus and advanced to the cecum, identified by appendiceal orifice and ileocecal valve. The colonoscopy was performed without difficulty. The patient tolerated the procedure well. The quality of the bowel preparation was good. Findings: The perianal and digital rectal examinations were normal. Two sessile polyps were found in the proximal transverse colon and ascending colon. The polyps were 4 to 5 mm in size. These polyps were removed with a cold snare. Resection and retrieval were complete. Estimated blood loss was minimal. Multiple medium-mouthed diverticula were found in the sigmoid colon. There was evidence of a prior functional end-to-end colo-rectal anastomosis at 15 cm proximal to the anus. This was patent and was characterized by healthy appearing mucosa. Impression: - Two 4 to 5 mm polyps in the proximal transverse colon and in the ascending colon, removed with a cold snare. Resected and retrieved. - Diverticulosis in the sigmoid colon. - Patent functional end-to-end colo-rectal anastomosis, characterized by healthy appearing mucosa. Recommendation: - Discharge patient to home. - Resume previous diet. - Continue present medications. - Await pathology results. - Telephone endoscopist for pathology results in 10 days. Joao Gatica MD 06/30/2016 2:56:50 PM Number of Addenda: 0 Note Initiated On: 06/30/2016 12:48 PM Estimated Blood Loss: Estimated blood loss was minimal.
== END ==
LOC: M OPP 12:03
PROVIDERS: ATTEND Surgery
DX: Z12.11 Encounter for screening for malignant neoplasm of colon (principal); Z85.038 Personal history of other malignant neoplasm of large intestine; D12.3 Benign neoplasm of transverse colon; D12.2 Benign neoplasm of ascending colon; Z98.0 Intestinal bypass and anastomosis status; K57.30 Diverticulosis of large intestine without perforation or abscess without bleeding; E07.9 Disorder of thyroid, unspecified; I25.10 Atherosclerotic heart disease of native coronary artery without angina pectoris; G47.30 Sleep apnea, unspecified; E66.9 Obesity, unspecified; G25.81 Restless legs syndrome; M35.3 Polymyalgia rheumatica; Z79.82 Long term (current) use of aspirin; Z79.899 Other long term (current) drug therapy; Z91.041 Radiographic dye allergy status; Z88.8 Allergy status to other drugs, medicaments and biological substances

== ENCOUNTER 2016-08-31 12:36 | Observation (INO) | payer MEDICARE, OTHER ==
[~2016-08-31] VITALS: Ht 193 cm; Wt 103.1 kg
[2016-08-31] VITALS (7 sets, daily range): BP systolic 120–155; BP diastolic 66–76
[~2016-08-31 12:36] MED LIST changes: -LIDOCAINE 2% INJ 100 MG/5 ML SDV (FOR ANES.) As Ordered ONE; -LR 1,000 ML IV SCH; -PROPOFOL 200 MG/20 ML VIAL As Ordered ONE
[2016-08-31] MEDS ORDERED: CENTTAB PO (12:47)
[2016-08-31 13:43] LABS: BASO % 0.4 % (0.0-1.0); EOS # 0.2 K/mm3 (0.0-0.50); EOS % 4.3 % (0.0-3.0); LARGE UNSTAINED CELL # 0.1 K/mm3 (0.0-0.4); LARGE UNSTAINED CELL % 2.3 % (0.0-4.0); LYMPH # 1.4 K/mm3 (1.5-4.5); LYMPH % 32.2 % (24.0-44.0); MEAN CORPUSCULAR HEMOGLOBIN 33.1 pg (27.0-33.0); MEAN CORPUSCULAR HGB CONC 34.9 g/dl (32.0-36.5); MEAN CORPUSCULAR VOLUME 94.8 fl (80.0-96.0); MONO # 0.2 K/mm3 (0.0-0.8); MONO % 4.9 % (0.0-5.0); NEUTROPHILS # 2.3 K/mm3 (1.8-7.7); NEUTROPHILS % 55.9 % (36.0-66.0); PLATELET COUNT, AUTOMATED 151 k/mm3 (150-450); RED CELL DISTRIBUTION WIDTH 12.8 % (11.5-14.5); WHITE BLOOD COUNT 4.2 K/mm3 (4.0-10.0)
--- NOTE | 2016-08-31 13:53 | REP ---
PORTABLE CHEST: AP portable view of the chest is performed and compared to a prior study of 09/21/2013 as well as multiple other prior exams. There is mild bibasilar fibrotic change without evidence of acute infiltrate or pulmonary edema. Heart appears mildly enlarged. Mediastinal silhouette is unchanged. There is calcification of the thoracic aorta. IMPRESSION: Chronic findings without evidence of acute pulmonary disease. Signed by Eliot Kwong MD 08/31/2016 05:13 P
[2016-08-31 13:58] LABS: ALBUMIN 3.4 GM/DL (3.2-5.2); ALBUMIN/GLOBULIN RATIO 0.92 (1.00-1.93); ALKALINE PHOSPHATASE 78 U/L (45-117); ALT/SGPT 23 U/L (12-78); ANION GAP 3 MEQ/L (8-16); BILIRUBIN,DIRECT 0.2 MG/DL (0.0-0.2); BILIRUBIN,TOTAL 0.9 MG/DL (0.2-1.0); BLOOD UREA NITROGEN 31 MG/DL (7-18); CALCIUM LEVEL 8.5 MG/DL (8.8-10.2); CARBON DIOXIDE LEVEL 29 MEQ/L (21-32); CHLORIDE LEVEL 110 MEQ/L (98-107); CREATININE FOR GFR 1.11 MG/DL (0.70-1.30); GLOMERULAR FILTRATION RATE > 60.0 (>42); GLUCOSE, FASTING 98 MG/DL (83-110); POTASSIUM SERUM 3.7 MEQ/L (3.5-5.1); SODIUM LEVEL 142 MEQ/L (136-145); TOTAL PROTEIN 7.1 GM/DL (6.4-8.2)
[2016-08-31 14:03] LABS: AST/SGOT 17 U/L (15-37)
--- NOTE | 2016-08-31 14:54 | REP ---
Bilateral lower extremity Duplex Doppler venous ultrasound: Real time compression and duplex Doppler interrogation of the bilateral lower extremity deep venous system is performed. Bilaterally, the common femoral, superficial femoral and popliteal veins are fully compressible with transducer pressure and demonstrate normal spontaneous and phasic flow, without evidence of deep venous thrombosis. Impression: No evidence of deep venous thrombosis of the bilateral lower extremity femoral popliteal venous system. Signed by Eliot Kwong MD 08/31/2016 02:45 P
[2016-08-31] MEDS ORDERED: IBUP40TA PO (15:59)
[2016-08-31] MEDS ORDERED: CYCLOBENZAPRINE 10 MG TAB PO PRN (16:15)
[2016-08-31] MEDS ORDERED: ACETAMINOPHEN TAB 650MG DOSE (2X325MG) PO PRN (16:15)
[2016-08-31] MEDS ORDERED: ONDANSETRON 4 MG TAB (S0181) PO PRN (16:15)
[2016-08-31] MEDS ORDERED: GLUCOSE 4 GM CHEW TABLET PO PRN (16:15)
[2016-08-31] MEDS ORDERED: ONDANSETRON 4MG/2ML VIAL (J2405) IV PRN (16:15)
[2016-08-31] MEDS ORDERED: GLUCAGON FOR INJ 1 MG VIAL (J1610) SC PRN (16:15)
[2016-08-31] MEDS ORDERED: DEXTROSE 50% 50 ML SYRINGE IV PRN (16:15)
[2016-08-31] MEDS ORDERED: ISOS30TA4 PO (17:18)
[2016-08-31] MEDS: HumaLOG INSULIN (NovoLOG) PER UNIT SC SCH (17:59)
--- NOTE | 2016-08-31 18:18 | ECGEPIP ---
Stationary ECG Study [facility] - ED Test Date: 2016-08-31 Pat Name: WAYLON FRAZIER Department: Room: - Gender: M Telecom Assistant: yenni : 1940 Requested By: Cristy Lim Order Number: [id number] Reading MD: Henrique Rowland Measurements Intervals [place] Rate: 55 P: -66 SC: 219 QRS: -10 QRSD: 96 T: 22 QT: 416 QTc: 399 Interpretive Statements SINUS BRADYCARDIA WITH FIRST DEGREE AV BLOCK NONSPECIFIC T-WAVE ABNORMALITY SIMILAR TO 11/19/15 Electronically Signed On 08-31-2016 18:17:56 EDT by Henrique Rowland
[2016-08-31] MEDS: POTASSIUM CHLORIDE 10 MEQ SR TABLET PO SCH (18:29)
[2016-08-31] MEDS: OMEPRAZOLE 20 MG CAP PO SCH (18:29)
[2016-08-31] MEDS: NS 1,000 ML IV SCH (18:29)
[2016-08-31] MEDS: PRAMIPEXOLE 0.25 MG TAB PO SCH ×2 (20:23→20:40)
[2016-08-31] MEDS: LATANOPROST 0.005% OPHTH SOLN 2.5 ML OU SCH (20:40)
[2016-08-31] MEDS: SERTRALINE 100 MG TAB PO SCH (20:40)
[2016-08-31] MEDS: ASPIRIN ENTERIC 325 MG TAB PO SCH (20:41)
--- NOTE | 2016-08-31 20:50 | HPEPDOC ---
Medical History and Physical Date of Admission Aug 31, 2016 at 16:11 History and Physical HISTORY AND PHYSICAL Date of admission: 08/31/2016 PCP: Dr. 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 He states that this started approximately 3 weeks ago and has been getting progressively worse. He states that the pain is only in his thighs, and does not extend all the way in to his legs, and he describes it as an achy and tired feeling. He states that from the time he enters the store to the time he leaves, his legs get extremely tired and exhausted to the point that he feels that he cannot keep walking. He states that he is now limited to approximately 100 feet. The patient also notes that he has been experiencing some of the same achy and tired symptoms in his arms. He denies any recent medication changes or dosage changes. 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 He denies any drug use and does not drink alcohol. Allergies: B venom, beta blockers, contrast dye, iodine, penicillin Review of systems: General: Negative for fever and chills Eyes: Negative for ocular discharge. Positive for ongoing vision issues that he states he is working with his fund development manager on. ENT: Negative for sore throat and nose bleed Cardiovascular: Negative for chest pain, positive for palpitations Respiratory: Positive for cough and shortness of breath GI: Negative for nausea, vomiting, diarrhea, constipation Musculoskeletal: Positive for chronic back pain Skin: Negative for rash Neuro: Negative for headache and dizziness, positive for lightheadedness and intermittent tingling in his bilateral lower extremities. Psych: Negative for depression and suicidal ideation Endocrine: Negative for polyuria : Negative For dysuria Heme: Negative For bleeding Home meds: See below Physical exam: Vital signs: Vital Sign - Last 24 Hours 08/31/16 08/31/16 08/31/16 08/31/16 12:36 13:11 13:51 13:58 Temp 96.1 Pulse 59 54 Resp 18 B/P (MAP) 136/56 (82) 118/58 (78) Pulse Ox 95 94 96 08/31/16 08/31/16 08/31/16 08/31/16 14:06 14:13 14:21 14:28 Pulse 48 46 B/P (MAP) 118/61 (80) 128/71 (90) Pulse Ox 95 95 08/31/16 08/31/16 08/31/16 08/31/16 14:35 14:36 14:51 14:57 Pulse 50 48 B/P (MAP) 113/57 (75) Pulse Ox 97 95 08/31/16 08/31/16 08/31/16 08/31/16 15:06 15:21 15:28 15:36 Pulse 46 46 48 B/P (MAP) 105/67 (80) Pulse Ox 96 96 97 08/31/16 08/31/16 15:51 19:48 Pulse 48 Pulse Ox 96 O2 Delivery Room Air Gen.: awake, alert, no acute distress Eyes: Extraocular movements intact, normal sclera ENT: Moist mucous membranes Cardiovascular: RRR, no murmurs rubs or gallops Lungs: clear to auscultation bilaterally, no rales, rhonchi, or wheeze Abdomen: Soft, NT/ND, normal BS Musculoskeletal: normal range of motion Extremities: No peripheral edema, strong bilat pedal pulses Neuro: alert and oriented 3, normal speech, no focal deficits, equal 5/5 strength in all extremities, intact finger to nose, no facial droop Psych: Normal mood with congruent affect Labs and radiology: See below BUN 31, creatinine 1.11 D-dimer elevated BNP 128 CK 57 TSH is elevated Troponin negative EKG shows sinus rhythm with first-degree AV block Chest x-ray was unremarkable for acute findings Bilateral lower extremity Dopplers negative for DVT Assessment and plan: 76-year-old male with WINIFRED on BiPAP, history of temporal arteritis, CAD status post cardiac stents, colon cancer status post partial colectomy, depression, hyperlipidemia, hypertension, bradycardia, restless leg syndrome, 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 1. Shortness of breath on exertion: Etiology is unclear at this point. The patient clinically does not appear to be volume overloaded and his BNP is not particularly impressive. Given his elevated d-dimer, I am concerned for possible PE, however, the patient is unable to complete a CTA secondary to his allergy to contrast dye. We have ordered a VQ scan, which cannot be completed until tomorrow morning. In the meantime, we will monitor the patient on telemetry. 2. Achiness and tiredness of the bilateral thighs and bilateral arms: Etiology is unclear at this point. The patient's CK is normal. I do not think that this represents claudication as the patient has strong pedal pulses bilaterally, and his complaints are only of the proximal muscles in his lower extremities. The patient does report that his primary care physician had been concerned that he might have spinal stenosis and that that was contributing to some of his symptoms. He reports that he had an MRI done in May and he is unsure of those results. There is no evidence in our EMR of this MRI, and the patient thinks that he might have had it completed at the neurologist office. Tomorrow, we can attempt to obtain this report. We will also give the patient some Flexeril for this muscle achiness, and we will stop his statin. We will ask PT and OT to work with the patient. 3. Dehydration: The patient's BUN and creatinine are mildly elevated, and the patient does report some dizziness. We will hydrate him with IV fluids and recheck his BMP in the morning. We will hold his home Lasix. 4. Hypothyroidism: The patient's TSH is elevated. We will check a free T4 in the morning, and continue his home Synthroid. 5. Bradycardia: The patient has a known history of this, but he has persistently been in the 40s and 50s while here. I discussed this with the patient's supervisor tan room Dr. Mendez, and he feels that since the patient is not symptomatic from this and that his heart rate has not been in the 30s, that he does not qualify for pacemaker at this time. We will monitor the patient on telemetry, as well as check a free T4. An initial troponin is negative, but we will continue to trend these. The patient does not report any rate suppressing medications on his home med list. 6. CAD status post cardiac stents, hyperlipidemia: The patient is unable to tolerate a beta vasquez. We are holding his statin given his complaints of myalgias. We will continue his home aspirin and imdur. 7. Depression: Continue home Zoloft. 8. Restless leg syndrome: Continue home Mirapex. 9. Tumor on left ear nerve: Patient reports that he has seen an ENT about this, and the ENT advised him that he would not pursue any further treatment of it as it is extremely small and slow growing. 10. Steroid-induced diabetes mellitus: The patient is no longer on steroids, and he does not currently take anything for diabetes. We will monitor with sliding scale insulin. DVT prophylaxis: Lovenox Dispo: placed in observation on the service of Dr. Emanuel CODE STATUS: DO NOT INTUBATE Vital Signs Vital Signs Date Time Temp Pulse Resp B/P (MAP) Pulse Ox O2 Delivery O2 Flow Rate FiO2 08/31/16 19:48 Room Air 08/31/16 15:51 48 96 08/31/16 15:28 105/67 (80) 08/31/16 12:36 96.1 18 Laboratory Data Labs 24H Laboratory Tests 2 08/31/16 13:18: D-Dimer, Quantitative 523.8H 08/31/16 13:23: White Blood Count 4.2, Red Blood Count 3.86L, Hemoglobin 12.7L, Hematocrit 36.6L , Mean Corpuscular Volume 94.8, Mean Corpuscular Hemoglobin 33.1H, Mean Corpuscular Hemoglobin Concent 34.9, Red Cell Distribution Width 12.8, Platelet Count 151, Neutrophils (%) (Auto) 55.9, Lymphocytes (%) (Auto) 32.2, Monocytes ( %) (Auto) 4.9, Eosinophils (%) (Auto) 4.3H, Basophils (%) (Auto) 0.4, Neutrophils # (Auto) 2.3, Lymphocytes # (Auto) 1.4L, Monocytes # (Auto) 0.2, Eosinophils # (Auto) 0.2, Basophils # (Auto) 0.0, Large Unclassified Cells % 2.3 , Large Unclassified Cells # 0.1, Anion Gap 3L, Glomerular Filtration Rate > 60.0, Calcium Level 8.5L, Aspartate Amino Transf (AST/SGOT) 17, Alanine Aminotransferase (ALT/SGPT) 23, Alkaline Phosphatase 78, Total Bilirubin 0.9, Direct Bilirubin 0.2, Total Creatine Kinase 57, Creatine Kinase MB 1.6, Creatine Kinase MB Relative Index 2.80, Troponin I < 0.02, B-Type Natriuretic Peptide 128H, Total Protein 7.1, Albumin 3.4, Albumin/Globulin Ratio 0.92L, Thyroid Stimulating Hormone (TSH) 4.250H 08/31/16 17:43: Bedside Glucose (Misc Panel) 86 08/31/16 19:08: Total Creatine Kinase 57, Creatine Kinase MB 2.0, Creatine Kinase MB Relative Index 3.50, Troponin I < 0.02 08/31/16 20:16: Bedside Glucose (Misc Panel) 120H CBC/BMP Laboratory Tests 08/31/16 13:23 Red Blood Count 3.86 L, Mean Corpuscular Volume 94.8, Mean Corpuscular Hemoglobin 33.1 H, Mean Corpuscular Hemoglobin Concent 34.9, Red Cell Distribution Width 12.8, Neutrophils (%) (Auto) 55.9, Lymphocytes (%) (Auto) 32.2, Monocytes (%) (Auto) 4.9, Eosinophils (%) (Auto) 4.3 H, Basophils (%) ( Auto) 0.4, Neutrophils # (Auto) 2.3, Lymphocytes # (Auto) 1.4 L, Monocytes # ( Auto) 0.2, Eosinophils # (Auto) 0.2, Basophils # (Auto) 0.0 Microbiology Microbiology 08/31/16 Blood Culture, Received Pending 08/31/16 Blood Culture, Received Pending Home Medications Scheduled Alfuzosin Hydrochloride (Alfuzosin HCl ER) 10 Mg Tab, 10 MG PO QHS Aspirin (Aspirin) 325 Mg Tab, 325 MG PO QPM DINNER TIME Isosorbide Mononitrate (Isosorbide Mononitrate ER) 30 Mg Tab, 30 MG PO DAILY Levothyroxine Sodium (Synthroid) 100 Mcg Tab, 224 MCG PO DAILY Multivitamins (Centrum Silver) 1 Tab Tab, 1 TAB PO DAILY Omeprazole (Omeprazole) 40 Mg Cap, 20 MG PO DAILY Potassium Chloride (Klor-Con) 20 Meq Pow, 10 MEQ PO DAILY Pramipexole Dihydrochloride (Mirapex ER) 2.25 Mg Tab, 2.25 MG PO DAILY Pravastatin Sod (Pravastatin Sodium) 10 Mg Tab, 20 MG PO DAILY Sertraline HCl (Sertraline HCl) 100 Mg Tab, 100 MG PO QHS Travoprost (Travatan Z) 50 Drop/2.5 Ml Soln, 1 DROP OU DAILY Scheduled PRN Furosemide (Lasix) 20 Mg Tab, 20 MG PO DAILY PRN for EDEMA Ibuprofen (Ibuprofen) 400 Mg Tab, 400 MG PO for PAIN Nitroglycerin (Nitrostat) 0.4 Mg Subl, 0.4 MG SL PRN PRN for ANGINA Psyllium (Metamucil) 0.52 Gm Cap, 0.52 GM PO DAILY PRN for CONSTIPATION Allergies Coded Allergies: Contrast Media (Verified Allergy, Intermediate, RASH HIVES, 07/14/11) Iodine (Verified Allergy, Intermediate, RASH HIVES, 06/22/12) Bee Venom (Verified Allergy, Unknown, 06/22/12) Penicillins (Verified Allergy, Unknown, 06/23/16) Penicillins Cross Reactors (Verified Allergy, Unknown, 06/22/12) Beta Adrenergic Blockers (Verified Adverse Reaction, Intermediate, DEC HR DEC BP, 06/22/12) JING GORDON Aug 31, 2016 20:50
[2016-08-31] MEDS ORDERED: HumaLOG INSULIN (NovoLOG) PER UNIT SC SCH (21:00)
[2016-08-31] MEDS ORDERED: NITROGLYCERIN 0.4 MG SUBL TABLET As Ordered ONE (21:44)
[2016-08-31] MEDS: NITROGLYCERIN 0.4 MG SUBL TABLET SL PRN ×3 (21:45→21:59)
[2016-09-01 02:15] VITALS: BP 110/61
[2016-09-01 06:00] VITALS: BP 129/59
--- NOTE | 2016-09-01 06:00 | ECGEPIP ---
Stationary ECG Study [facility] - ED Test Date: 2016-08-31 Pat Name: WAYLON FRAZIER Department: Room: - Gender: M Set Rider: : 1940 Requested By: Cristy Lim Order Number: [id number] Reading MD: Henrique Rowland Measurements Intervals [place] Rate: 49 P: -22 [place]: 256 QRS: -15 QRSD: 97 T: 68 QT: 442 QTc: 402 Interpretive Statements SINUS BRADYCARDIA WITH FIRST DEGREE AV BLOCK NONSPECIFIC T-WAVE ABNORMALITY SIMILAR TO PRIOR ON SAME DATE Electronically Signed On 09-01-2016 5:59:39 EDT by Henrique Rowland
[2016-09-01] MEDS: LEVOTHYROXINE 112MCG TABLET (0.112MG) PO SCH (06:07)
[2016-09-01] MEDS: NS 1,000 ML IV SCH (06:07)
[2016-09-01 06:24] LABS: BASO % 0.2 % (0.0-1.0); EOS # 0.2 K/mm3 (0.0-0.50); EOS % 4.3 % (0.0-3.0); LARGE UNSTAINED CELL # 0.1 K/mm3 (0.0-0.4); LARGE UNSTAINED CELL % 2.4 % (0.0-4.0); LYMPH # 1.3 K/mm3 (1.5-4.5); MEAN CORPUSCULAR HEMOGLOBIN 32.1 pg (27.0-33.0); MEAN CORPUSCULAR HGB CONC 33.8 g/dl (32.0-36.5); MONO # 0.2 K/mm3 (0.0-0.8); MONO % 5.4 % (0.0-5.0); NEUTROPHILS # 2.6 K/mm3 (1.8-7.7); NEUTROPHILS % 59.7 % (36.0-66.0); PLATELET COUNT, AUTOMATED 137 k/mm3 (150-450); RED CELL DISTRIBUTION WIDTH 12.8 % (11.5-14.5); WHITE BLOOD COUNT 4.4 K/mm3 (4.0-10.0)
[2016-09-01 06:36] LABS: ANION GAP 4 MEQ/L (8-16); BLOOD UREA NITROGEN 25 MG/DL (7-18); CALCIUM LEVEL 7.9 MG/DL (8.8-10.2); CARBON DIOXIDE LEVEL 28 MEQ/L (21-32); CHLORIDE LEVEL 108 MEQ/L (98-107); CREATININE FOR GFR 0.92 MG/DL (0.70-1.30); FREE T4 1.14 NG/DL (0.76-1.46); GLOMERULAR FILTRATION RATE > 60.0 (>42); GLUCOSE, FASTING 124 MG/DL (83-110); MAGNESIUM LEVEL 1.9 MG/DL (1.8-2.4); POTASSIUM SERUM 4.2 MEQ/L (3.5-5.1); SODIUM LEVEL 140 MEQ/L (136-145)
[2016-09-01] MEDS: ISOSORBIDE MON. (IMDUR) 30 MG XR TAB PO SCH (08:52)
--- NOTE | 2016-09-01 08:58 | REP ---
V/Q SCAN: Following the intravenous administration of 5.5 mCi of technetium-99m tagged MAA and the inhalation of 1 mCi of technetium-99m DTPA aerosol multiple images of the lungs are obtained in various projections. There is a prominent left ventricle causing a matching ventilation and perfusion defect in the left lung base. No areas of V/Q mismatch are seen. IMPRESSION: Low probability of pulmonary embolism. Signed by Eliot Kwong MD 09/01/2016 01:46 P
[2016-09-01] MEDS: POTASSIUM CHLORIDE 10 MEQ SR TABLET PO SCH (09:01)
[2016-09-01] MEDS: MULTIVITAMINS/MINERALS THERAP 1 TAB PO SCH (09:01)
[2016-09-01] MEDS: OMEPRAZOLE 20 MG CAP PO SCH (09:01)
[2016-09-01] MEDS: HumaLOG INSULIN (NovoLOG) PER UNIT SC SCH (09:01)
[2016-09-01] MEDS: PRAMIPEXOLE 0.25 MG TAB PO SCH ×3 (09:02→20:26)
[2016-09-01] MEDS: ENOXAPARIN 40 MG/0.4 ML SYRINGE (J1650) SC SCH (09:02)
[2016-09-01 14:00] VITALS: BP 171/73
[2016-09-01] MEDS ORDERED: FUROSEMIDE 20 MG/2 ML VIAL (J1940) IV ONE (14:00)
[2016-09-01] MEDS ORDERED: FUROSEMIDE 20 MG/2 ML VIAL (J1940) As Ordered ONE (14:37)
--- NOTE | 2016-09-01 15:16 | IPN ---
DATE: 09/01/2016 SUBJECTIVE: The patient tells me that he feels about the same as he did yesterday. He denies chest pain, lightheadedness, dizziness, nausea, vomiting, or diarrhea. His shortness of breath is persistent with dyspnea on exertion. Also, he has had persistent lower extremity pain with ambulating, alleviated by sitting and resting. Otherwise, he feels no different than yesterday. OBJECTIVE: VITAL SIGNS: Temperature 97, pulse 52, respiratory rate 20, blood pressure 129/59, oxygen saturation 96% on room air. GENERAL: He is an obese, elderly, man sitting up in bed. He is in no acute distress. NEUROLOGIC: Cranial nerves II-XII are grossly intact. HEENT: He has moist mucous membranes. He has an enlarged neck. CARDIOVASCULAR: S1, S2. He is bradycardic. No distant heart sounds appreciated. RESPIRATORY: Clear. ABDOMEN: Grossly obese. EXTREMITIES: No clubbing or cyanosis. There is 1+ edema bilaterally. LABORATORY STUDIES: WBC 4.4, hemoglobin 12.1, hematocrit 35.8, platelet count 137. Chemistry panel: Sodium 140, potassium 4.2, chloride 108, bicarbonate 28, BUN 25, creatinine 0.9. Multiple sets of cardiac enzymes are negative. Free T4 within normal limits, TSH which is slightly elevated, BNP which is slightly elevated, an elevated D-dimer. MICROBIOLOGY: Blood cultures are negative thus far. IMAGING STUDIES: The patient did have a chest x-ray which revealed no acute cardiopulmonary disease by the radiology read. However, I feel as if there might be some pulmonary vascular congestion. The patient did have a duplex ultrasound of the lower extremities that did not reveal any DVT. The patient also had a V/Q study performed today which was low probability for PE. ASSESSMENT AND PLAN: This is a 76-year-old man with dyspnea on exertion and lower extremity pain with exertion. PROBLEMS: 1. Dyspnea on exertion. Given that the patient does have some peripheral edema, history of coronary disease and appears as though his weight is up mildly, I will empirically give him 20 mg of IV Lasix to see if he improves with some diuresis. He is not hypoxic and he is able to lay fairly flat at this time which can go against this as an etiology. He had a stress test completed in 2013 which was negative. He may be due for repeat stress testing as he may be showing some anginal symptoms. He had a cardiac catheterization in 2014 also. 2. Lower extremity pain. It appears to be typical for neurogenic claudication. Dr. Omer Pollard apparently had told him in the past that he may have spinal stenosis. I have ordered an MRI of the lumbosacral spine to evaluate this as this certainly goes with this. If the MRI is negative for spinal stenosis in the lumbar region, I would then suspect the next option would be possibly outpatient referral to vascular surgery for evaluation for peripheral vascular disease. 3. Bradycardia. The patient's heart rate has been persistently in the 40s and 50s. This was discussed with Dr. Mendez who felt that the patient was asymptomatic and there was no need for pacemaker or any further monitoring. I will ambulate the patient to see if his heart rate increases with activity. If he has a failure to increase his heart rate with activity then he may warrant reevaluation for potential pacemaker placement. We will discuss further with Dr. Mendez if needed. 4. Coronary artery disease, status post stents in the past. He is unable to tolerate a beta vasquez. We are holding his statin secondary to myalgias. He will be continued on aspirin and Imdur. 5. Depression. He is continued on Zoloft. 6. Restless leg syndrome. He is continued on Mirapex. 7. Schwannoma. He has seen ears, nose and throat (ENT) for this and has been advised that it is slow growing and there is no further intervention planned at this time. 8. Steroid-induced diabetes mellitus. He is on steroids and he is not diabetic. 9. Hypothyroidism. Consider repeating on the outpatient setting. His thyroid-stimulating hormone (TSH) is mildly elevated at this time. He may require titration. 10. Deep vein thrombosis (DVT) prophylaxis. The patient is on Lovenox.
[2016-09-01 16:00] VITALS: BP 134/66
[2016-09-01] MEDS: GABAPENTIN 100 MG CAP PO SCH ×2 (16:37→20:26)
--- NOTE | 2016-09-01 19:18 | REP ---
MRI LUMBAR SPINE WITHOUT CONTRAST: 09/01/2016. Clinical history: Back pain, spinal stenosis. No prior studies available. Technique: Sagittal T1, T2 and STIR images with axial T1 and T2 sequences through the lumbar spine angled through the plane of the disc. Findings: Normal sagittal lordosis is maintained. Vertebral body heights and marrow signal from T12-S3 noted and stable. T11-12 disc space shows some slight narrowing and loss of disc water signal. All of the other disc levels from T12-L1 through L5-S1 show loss of disc water signal with disc height limited from L3-4 through L5-S1, sparing the other two levels. The conus terminates at L1-2 level. There is a disc bulge at T11-12, not causing cord compression or significant central canal stenosis. The foramina are not well evaluated at the edge of the field. At T12-L1, there is no disc bulge or herniation and no spinal or foraminal stenosis. At L1-L2, broad-based disc bulge flattening ventral thecal sac, but not causing central canal stenosis. Foramina appear adequate. At L2-3, there is a mild broad-based disc bulge with small central disc protrusion, although this minimally compresses the thecal sac. The ligamentum flavum and facet hypertrophy contribute to some mild spinal stenosis as well. There is still subarachnoid space present and the edema/fluid in the facet joints. Foramina show encroachment due to combined factors without significant nerve root compression. At L3-4, there is a broad-based disc bulge flattening ventral thecal sac with ligamentum and facet hypertrophy, greater some lateral recess stenosis at this level noted due to combined factors. Central canal is mildly stenotic. Foramina are stenotic bilaterally, although mild. At L4-5, mild diffuse broad-based disc bulge with central disc protrusion, lateral recess stenosis abutting the L5 nerve roots in the central canal. Ligamentum and facet hypertrophy contribute to central canal stenosis. The foramina show encroachment bilaterally, left worse than right. At the L5-S1 level, there is a right paracentral disc protrusion, some disc extrusion as well. This abuts and displaces the right S1 nerve root in the central canal. The left S1 nerve root is abutted, but not displaced by the broad-based disc bulge. The right foramen is mildly narrowed as is the left without nerve root compression. Impression: 1. Multilevel degenerative disc disease with L5-S1 right paracentral disc protrusion with small extrusion abutting and displacing the right S1 nerve root in the canal with mild foraminal encroachment due to combined factors. 2. Central canal stenosis and lateral recess stenosis at L4-L5 due to combined factors. Foramina with loss of perineural fat bilaterally, mildly stenotic. 3. L3-4 shows similar combined factor findings causing central canal and lateral recess stenosis with foraminal encroachment due to these combined factors, representing mild to moderate spinal stenosis. 4. Mild central canal stenosis at L2-L3 due to combined factors with a small central disc protrusion with foramina mildly stenotic due to combined factors, but no nerve root compression. 5. Disc bulge at L1-2 without spinal or significant foraminal stenosis. Signed by Paul Case MD 09/02/2016 11:41 A
[2016-09-01] MEDS: ASPIRIN ENTERIC 325 MG TAB PO SCH (20:26)
[2016-09-01] MEDS: SERTRALINE 100 MG TAB PO SCH (20:26)
[2016-09-01] MEDS: LATANOPROST 0.005% OPHTH SOLN 2.5 ML OU SCH (20:26)
[2016-09-01 22:00] VITALS: BP 129/72
[2016-09-02] MEDS: LEVOTHYROXINE 112MCG TABLET (0.112MG) PO SCH (05:31)
[2016-09-02 06:00] VITALS: BP 133/68
[2016-09-02 06:45] LABS: BASO % 0.3 % (0.0-1.0); EOS # 0.2 K/mm3 (0.0-0.50); LARGE UNSTAINED CELL # 0.1 K/mm3 (0.0-0.4); LARGE UNSTAINED CELL % 2.5 % (0.0-4.0); LYMPH # 1.3 K/mm3 (1.5-4.5); LYMPH % 31.5 % (24.0-44.0); MEAN CORPUSCULAR HEMOGLOBIN 31.6 pg (27.0-33.0); MEAN CORPUSCULAR HGB CONC 32.9 g/dl (32.0-36.5); MEAN CORPUSCULAR VOLUME 96.2 fl (80.0-96.0); MONO # 0.2 K/mm3 (0.0-0.8); MONO % 4.9 % (0.0-5.0); NEUTROPHILS # 2.1 K/mm3 (1.8-7.7); NEUTROPHILS % 55.7 % (36.0-66.0); PLATELET COUNT, AUTOMATED 125 k/mm3 (150-450); RED CELL DISTRIBUTION WIDTH 12.7 % (11.5-14.5); WHITE BLOOD COUNT 3.8 K/mm3 (4.0-10.0)
[2016-09-02 06:55] LABS: ANION GAP 4 MEQ/L (8-16); BLOOD UREA NITROGEN 19 MG/DL (7-18); CALCIUM LEVEL 8.2 MG/DL (8.8-10.2); CARBON DIOXIDE LEVEL 27 MEQ/L (21-32); CHLORIDE LEVEL 108 MEQ/L (98-107); CREATININE FOR GFR 0.98 MG/DL (0.70-1.30); GLOMERULAR FILTRATION RATE > 60.0 (>42); GLUCOSE, FASTING 143 MG/DL (83-110); MAGNESIUM LEVEL 1.9 MG/DL (1.8-2.4); POTASSIUM SERUM 3.9 MEQ/L (3.5-5.1); SODIUM LEVEL 139 MEQ/L (136-145)
[2016-09-02 08:01] LABS: ERYTHROCYTE SEDIMENTATION RATE 70 mm/hr (0-20)
[2016-09-02] MEDS: ENOXAPARIN 40 MG/0.4 ML SYRINGE (J1650) SC SCH (09:01)
[2016-09-02] MEDS: POTASSIUM CHLORIDE 10 MEQ SR TABLET PO SCH (09:01)
[2016-09-02] MEDS: MULTIVITAMINS/MINERALS THERAP 1 TAB PO SCH (09:01)
[2016-09-02] MEDS: OMEPRAZOLE 20 MG CAP PO SCH (09:01)
[2016-09-02] MEDS: PRAMIPEXOLE 0.25 MG TAB PO SCH (09:01)
[2016-09-02] MEDS: GABAPENTIN 100 MG CAP PO SCH (09:01)
[2016-09-02] MEDS ORDERED: GABA-279 PO (09:02)
[2016-09-02 09:51] VITALS: BP 151/78
[2016-09-02] MEDS: ISOSORBIDE MON. (IMDUR) 30 MG XR TAB PO SCH (09:51)
--- NOTE | 2016-09-03 17:47 | DSES ---
DATE OF ADMISSION: 08/31/2016 DATE OF DISCHARGE: 09/02/2016 DISCHARGE DIAGNOSIS: Spinal stenosis. SECONDARY DIAGNOSES: 1. Dyspnea on exertion. 2. Coronary artery disease. 3. Depression. 4. Restless leg syndrome. 5. Schwannoma. 6. Hypothyroidism. HOSPITAL COURSE: The patient is a 76-year-old man who had been having lower extremity pain with walking, alleviated by sitting, progressively worsening. He had been told by primary care physician (PCP), Dr. Omer Pollard, in the past that he may be suffering from spinal stenosis. Patient has seen neurology, and has had an MRI but does not know the results. Patient presented to the hospital because his symptoms continued to worsen. He was admitted to the medical/surgical floor. He did have duplex of his lower extremities that did not reveal any deep vein thromboses (DVTs). He had a V/Q scan of the lung that did not reveal any pulmonary embolism (PE). He also had a lumbar MRI that revealed central canal stenosis, L4-5, mildly stenotic, as well as L3-4 moderate spinal stenosis. The patient was started on gabapentin. His symptoms did improve significantly. SUBJECTIVE: This morning the patient tells me he feels better than he has in several weeks. He denies any chest pressure, shortness of breath, lightheadedness, dizziness, nausea, vomiting. He tells me he has been up ambulating without difficulty today. OBJECTIVE: VITAL SIGNS: Temperature 98.6, pulse 53, respiratory rate 20, blood pressure (BP) 153/68, oxygen saturation 97% on room air. GENERAL: He is a pleasant, obese, elderly man lying in his bed at a 60-degree angle watching television. He is in no distress. HEENT: Cranial nerves II-XII are grossly intact. He has an enlarged neck. Moist mucous membranes. CARDIOVASCULAR: S1, S2, bradycardic. No distant heart sounds appreciated. RESPIRATORY: Clear. ABDOMEN: Grossly obese. EXTREMITIES: No clubbing, cyanosis, or edema. LABORATORY STUDIES: WBC 3.8, hemoglobin 12.4, platelet count 125. Chemistry panel: Sodium 139, potassium 3.9, chloride 108, bicarbonate 27, BUN 19, creatinine 0.9, magnesium 1.9. Three sets of cardiac enzymes were negative. He did have a TSH which was slightly elevated at 4.2. He did have an elevated D-dimer of 523.8 in the emergency room. Microbiology: Blood cultures were negative. IMAGING: As outlined above. ASSESSMENT AND PLAN: This is a 76-year-old man with lumbar spinal stenosis as well as dyspnea on exertion. 1. Dyspnea on exertion. Patient's cardiac enzymes were negative. His EKG did not show any concerning findings. He has had a cardiac catheterization in 2013 that did not reveal any significant obstructive disease. He was able to ambulate 500 feet with desaturations whatsoever or significant dyspnea. I have recommended to him that he should likely continue to followup with Dr. Mendez, his surveyor's assistant, and consider having a repeat stress test, as it has been several years. 2. Spinal stenosis, lumbar region. His history as quite typical for neurogenic claudication, and his MRI was also convincing of this in the clinical setting. I have started him on gabapentin, which has improved his symptoms greatly with only 100 mg three times a day. He could have this titrated up further on the outpatient setting. 3. Bradycardia. Patient's heart rate was persistently in the 40s and 50s during his stay without any symptoms. Dr. Mendez, his surveyor's assistant, was notified about this and felt there was no need for anything further to be done, given it was a sinus bradycardia without any symptoms. The patient was ambulated 500 feet, and his heart rate did increase appropriately to the 70s. 4. Coronary artery disease, status post stent. He was unable to tolerate a beta vasquez. His statin as placed on hold during the stay secondary to myalgias. He is continued on aspirin and Imdur. 5. Depression. He is continued on Zoloft. 6. Restless leg syndrome. He is continued on Mirapex. 7. Schwannoma. He follows with ears, nose, and throat (ENT) who informed us that no surgical interventions are needed. 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 He is not diabetic. 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 9. Hypothyroidism. His TSH was mildly elevated. Consider repeating on the outpatient setting and titrating up as indicated with his primary care provider. 10. Deep vein thrombosis (DVT) prophylaxis. Patient has been on Lovenox. DISPOSITION: The patient is being discharged home. He is at his functional baseline. His clinical status is improved. He is to followup with his PCP in 7 days, to followup with neurology within 2 weeks, followup with surveyor's assistant in 2 weeks. His activity and diet are as prior to admission. He is to return to the emergency room (ER) if his symptoms worsen. He is to consider a repeat stress test through his surveyor's assistant's office. MEDICATIONS AT THE TIME OF DISCHARGE: - gabapentin 100 mg three times a day - furazosin 10 mg at bedtime - aspirin 325 mg every evening - Lasix 20 mg daily - ibuprofen 400 mg as needed for pain - isosorbide mononitrate 30 mg daily - levothyroxine 224 mcg daily - multivitamin one tablet daily - Nitrostat 0.4 mg sublingually as needed for angina - omeprazole 20 mg daily - potassium chloride 10 mEq daily - Mirapex 2.25 mg daily - We will discontinue the patient's pravastatin upon discharge - Metamucil 0.5, 2 mg as needed for constipation - sertraline 100 mg at bedtime - Travatan Z one drop each eye daily Greater than 30 minutes spent organizing disposition.
== END 2016-09-02 11:05 | disposition home or self-care (01) ==
LOC: M ED 13:33 → M ED INP 16:11 → M MSPAV 21:02
PROVIDERS: ADMIT Hospitalist; ATTEND Internal Medicine
DX: M48.06 Spinal stenosis, lumbar region (principal); R06.00 Dyspnea, unspecified; I25.10 Atherosclerotic heart disease of native coronary artery without angina pectoris; F32.9 Major depressive disorder, single episode, unspecified; G25.81 Restless legs syndrome; D33.3 Benign neoplasm of cranial nerves; E03.9 Hypothyroidism, unspecified; R00.1 Bradycardia, unspecified; M79.606 Pain in leg, unspecified; M79.601 Pain in right arm; M79.602 Pain in left arm; Z95.5 Presence of coronary angioplasty implant and graft; E09.9 Drug or chemical induced diabetes mellitus without complications; R79.1 Abnormal coagulation profile; G47.33 Obstructive sleep apnea (adult) (pediatric); M31.6 Other giant cell arteritis; Z85.038 Personal history of other malignant neoplasm of large intestine; Z79.899 Other long term (current) drug therapy; Z79.82 Long term (current) use of aspirin; Z88.0 Allergy status to penicillin; Z88.8 Allergy status to other drugs, medicaments and biological substances; Z91.041 Radiographic dye allergy status; Z91.030 Bee allergy status
CPT/HCPCS: 36415; 71010; 72148; 78582; 80048; 80076; 82550; 82553; 83735; 83880; 84439; 84443; 84484; 85025; 85379; 85652; 86140; 87040; 93005; 93041; 93970; 94760; 96360; 96361; 96372; 99285; A9540; A9567; G0378; J1650

== ENCOUNTER → 2016-11-09 | Outpatient (REF) | payer MEDICARE, OTHER ==
[~2016-11-09] MED LIST changes: +CENTTAB PO; +GABA-279 PO; +IBUP40TA PO; +ISOS30TA4 PO; -PRAV10TA PO; +PRAV10TA4 PO
[2016-11-09 12:22] LABS: ALBUMIN 3.4 GM/DL (3.2-5.2); ALKALINE PHOSPHATASE 82 U/L (45-117); ALT/SGPT 23 U/L (12-78); ANION GAP 7 MEQ/L (8-16); AST/SGOT 19 U/L (15-37); BILIRUBIN,TOTAL 0.6 MG/DL (0.2-1.0); BLOOD UREA NITROGEN 24 MG/DL (7-18); CALCIUM LEVEL 8.5 MG/DL (8.8-10.2); CARBON DIOXIDE LEVEL 26 MEQ/L (21-32); CHLORIDE LEVEL 110 MEQ/L (98-107); CHOLESTEROL LEVEL 121 MG/DL (<200); CREATININE FOR GFR 1.05 MG/DL (0.70-1.30); GLOMERULAR FILTRATION RATE > 60.0 (>42); GLUCOSE, FASTING 122 MG/DL (83-110); MAGNESIUM LEVEL 1.9 MG/DL (1.8-2.4); POTASSIUM SERUM 4.1 MEQ/L (3.5-5.1); SODIUM LEVEL 143 MEQ/L (136-145); TOTAL PROTEIN 6.8 GM/DL (6.4-8.2); TRIGLYCERIDES LEVEL 108 MG/DL (<150)
== END ==
LOC: M SFHCPLAZ 09:25
PROVIDERS: ATTEND Internal Medicine
DX: E11.9 Type 2 diabetes mellitus without complications (principal); E78.00 Pure hypercholesterolemia, unspecified; I25.10 Atherosclerotic heart disease of native coronary artery without angina pectoris; E03.9 Hypothyroidism, unspecified

== ENCOUNTER → 2017-04-30 | Outpatient (REF) | payer MEDICARE, OTHER ==
[2017-04-30 14:02] LABS: HEMATOCRIT 40.6 % (42.0-52.0); HEMOGLOBIN 13.2 g/dl (14.0-18.0); MEAN CORPUSCULAR HEMOGLOBIN 30.9 pg (27.0-33.0); MEAN CORPUSCULAR HGB CONC 32.5 g/dl (32.0-36.5); MEAN CORPUSCULAR VOLUME 95.1 fl (80.0-96.0); PLATELET COUNT, AUTOMATED 154 10^3/uL (150-450); RED BLOOD COUNT 4.27 10^6/uL (4.30-6.10); RED CELL DISTRIBUTION WIDTH 12.7 % (11.5-14.5); WHITE BLOOD COUNT 6.1 10^3/uL (4.0-10.0)
[2017-04-30 14:23] LABS: ALBUMIN 3.8 GM/DL (3.2-5.2); ALBUMIN/GLOBULIN RATIO 1.12 (1.00-1.93); ALKALINE PHOSPHATASE 83 U/L (45-117); ALT/SGPT 24 U/L (12-78); ANION GAP 6 MEQ/L (8-16); AST/SGOT 20 U/L (7-37); BILIRUBIN,TOTAL 0.8 MG/DL (0.2-1.0); BLOOD UREA NITROGEN 30 MG/DL (7-18); CARBON DIOXIDE LEVEL 29 MEQ/L (21-32); CHLORIDE LEVEL 108 MEQ/L (98-107); CREATININE FOR GFR 1.04 MG/DL (0.70-1.30); GLOMERULAR FILTRATION RATE > 60.0 (>42); GLUCOSE, FASTING 119 MG/DL (70-100); POTASSIUM SERUM 4.5 MEQ/L (3.5-5.1); SODIUM LEVEL 143 MEQ/L (136-145); TOTAL PROTEIN 7.2 GM/DL (6.4-8.2)
[2017-04-30 14:24] LABS: ESTIMATED AVERAGE GLUCOSE 148 MG/DL (60-110); HEMOGLOBIN A1c 6.8 %
[2017-04-30 14:57] LABS: MALB URINE SIEMENS 10.8 MG/L; MAU/CREAT RATIO 4.6 MCG/MG (0.0-30.0)
== END ==
LOC: M SFHCPLAZ 10:13
DX: G25.81 Restless legs syndrome (principal); E11.9 Type 2 diabetes mellitus without complications
CPT/HCPCS: 80053

== ENCOUNTER 2017-07-12 11:06 | Observation (INO) | payer MEDICARE, OTHER ==
[2017-07-12 11:50] LABS: BASO % 0.2 % (0.0-1.0); EOS % 0.2 % (0.0-3.0); HEMATOCRIT 39.7 % (42.0-52.0); IMMATURE GRANULOCYTE % 0.4 % (0-3.0); LYMPH # 1.4 10^3/uL (1.5-4.5); LYMPH % 14.5 % (24.0-44.0); MEAN CORPUSCULAR HEMOGLOBIN 30.7 pg (27.0-33.0); MEAN CORPUSCULAR HGB CONC 32.7 g/dl (32.0-36.5); MEAN CORPUSCULAR VOLUME 93.6 fl (80.0-96.0); MONO # 0.5 10^3/uL (0.0-0.8); MONO % 5.3 % (0.0-5.0); NEUTROPHILS # 7.5 10^3/uL (1.8-7.7); NEUTROPHILS % 79.4 % (36.0-66.0); PLATELET COUNT, AUTOMATED 115 10^3/uL (150-450); RED BLOOD COUNT 4.24 10^6/uL (4.30-6.10); RED CELL DISTRIBUTION WIDTH 13.2 % (11.5-14.5); WHITE BLOOD COUNT 9.5 10^3/uL (4.0-10.0)
[2017-07-12 11:59] LABS: ANION GAP 10 MEQ/L (8-16); BLOOD UREA NITROGEN 51 MG/DL (7-18); CALCIUM LEVEL 7.7 MG/DL (8.8-10.2); CARBON DIOXIDE LEVEL 22 MEQ/L (21-32); CHLORIDE LEVEL 111 MEQ/L (98-107); CREATININE FOR GFR 1.83 MG/DL (0.70-1.30); GLOMERULAR FILTRATION RATE 38.4 (>42); GLUCOSE, FASTING 152 MG/DL (70-100); POTASSIUM SERUM 3.4 MEQ/L (3.5-5.1); SODIUM LEVEL 143 MEQ/L (136-145)
[2017-07-12] MEDS: NS 1,000 ML IV ×2 (12:45→18:30)
[2017-07-12 13:06] LABS: ALBUMIN 3.4 GM/DL (3.2-5.2); ALBUMIN/GLOBULIN RATIO 0.89 (1.00-1.93); ALKALINE PHOSPHATASE 61 U/L (45-117); ALT/SGPT 32 U/L (12-78); AST/SGOT 46 U/L (7-37); BILIRUBIN,DIRECT 0.2 MG/DL (0.0-0.2); BILIRUBIN,TOTAL 0.8 MG/DL (0.2-1.0); LIPASE 134 U/L (73-393); TOTAL PROTEIN 7.2 GM/DL (6.4-8.2)
[2017-07-12] MEDS: ONDANSETRON 4MG/2ML VIAL (J2405) IV (13:14)
[2017-07-12 13:51] LABS: AMMONIA 27 uMOL/L (<32)
[2017-07-12] MEDS ORDERED: ONDANSETRON 4 MG TAB (S0181) PO (16:45)
[2017-07-12] MEDS ORDERED: ACETAMINOPHEN TAB 650MG DOSE (2X325MG) PO (16:45)
[2017-07-12] MEDS ORDERED: NITROGLYCERIN 0.4 MG SUBL TABLET SL (17:30)
[2017-07-12] MEDS: GABAPENTIN 300 MG CAP PO (18:30)
[2017-07-12] MEDS: POTASSIUM CHLORIDE 10 MEQ SR TABLET PO (18:30)
[2017-07-12] MEDS: ASPIRIN ENTERIC 325 MG TAB PO (18:31)
[2017-07-12] MEDS: SERTRALINE 100 MG TAB PO (18:31)
[2017-07-12] MEDS: OMEPRAZOLE 20 MG CAP PO (18:31)
[2017-07-12] MEDS: MULTIVITAMINS/MINERALS THERAP 1 TAB PO (18:31)
[2017-07-12] MEDS: LATANOPROST 0.005% OPHTH SOLN 2.5 ML OU (22:20)
[2017-07-12] MEDS: HEPARIN SOD (PORCINE) 5000 UNITS/ML VIAL SC (22:20)
[2017-07-13] MEDS: HEPARIN SOD (PORCINE) 5000 UNITS/ML VIAL SC (06:11)
[2017-07-13] MEDS: LEVOTHYROXINE 112MCG TABLET (0.112MG) PO (06:12)
[2017-07-13] MEDS: NS 1,000 ML IV (06:12)
[2017-07-13 06:56] LABS: BASO % 0.2 % (0.0-1.0); EOS # 0.1 10^3/uL (0.0-0.50); HEMATOCRIT 36.6 % (42.0-52.0); HEMOGLOBIN 11.9 g/dl (13.5-17.5); IMMATURE GRANULOCYTE % 0.2 % (0-3.0); LYMPH # 1.7 10^3/uL (1.5-4.5); LYMPH % 29.1 % (24.0-44.0); MEAN CORPUSCULAR HEMOGLOBIN 30.5 pg (27.0-33.0); MEAN CORPUSCULAR HGB CONC 32.5 g/dl (32.0-36.5); MEAN CORPUSCULAR VOLUME 93.8 fl (80.0-96.0); MONO # 0.4 10^3/uL (0.0-0.8); MONO % 7.4 % (0.0-5.0); NEUTROPHILS # 3.6 10^3/uL (1.8-7.7); NEUTROPHILS % 62.1 % (36.0-66.0); PLATELET COUNT, AUTOMATED 103 10^3/uL (150-450); RED CELL DISTRIBUTION WIDTH 13.2 % (11.5-14.5); WHITE BLOOD COUNT 5.8 10^3/uL (4.0-10.0)
[2017-07-13 07:06] LABS: ANION GAP 5 MEQ/L (8-16); BLOOD UREA NITROGEN 45 MG/DL (7-18); CALCIUM LEVEL 7.6 MG/DL (8.8-10.2); CARBON DIOXIDE LEVEL 22 MEQ/L (21-32); CHLORIDE LEVEL 118 MEQ/L (98-107); CREATININE FOR GFR 1.19 MG/DL (0.70-1.30); GLOMERULAR FILTRATION RATE > 60.0 (>42); GLUCOSE, FASTING 82 MG/DL (70-100); POTASSIUM SERUM 3.7 MEQ/L (3.5-5.1); SODIUM LEVEL 145 MEQ/L (136-145)
[2017-07-13] MEDS: OMEPRAZOLE 20 MG CAP PO (08:28)
[2017-07-13] MEDS: SERTRALINE 100 MG TAB PO (08:29)
[2017-07-13] MEDS: MULTIVITAMINS/MINERALS THERAP 1 TAB PO (08:29)
[2017-07-13] MEDS: ASPIRIN ENTERIC 325 MG TAB PO (08:29)
[2017-07-13] MEDS: GABAPENTIN 300 MG CAP PO (08:34)
[2017-07-13] MEDS: PRAMIPEXOLE 1 MG TAB PO ×2 (09:00→13:07)
[2017-07-13] MEDS ORDERED: PRAMIPEXOLE 1 MG TAB PO (09:00)
== END 2017-07-13 13:30 | disposition home or self-care (01) ==
LOC: M ED 11:06 → M ED INP 15:29 → M MS5PR 17:45
DX: N17.9 Acute kidney failure, unspecified (principal); R19.7 Diarrhea, unspecified; I10 Essential (primary) hypertension; E78.5 Hyperlipidemia, unspecified; I25.10 Atherosclerotic heart disease of native coronary artery without angina pectoris; I25.2 Old myocardial infarction; E03.9 Hypothyroidism, unspecified; K21.9 Gastro-esophageal reflux disease without esophagitis; N40.0 Benign prostatic hyperplasia without lower urinary tract symptoms; G25.81 Restless legs syndrome; G47.33 Obstructive sleep apnea (adult) (pediatric); G93.81 Temporal sclerosis; Z79.82 Long term (current) use of aspirin; Z79.899 Other long term (current) drug therapy; Z88.0 Allergy status to penicillin; Z91.030 Bee allergy status; Z88.8 Allergy status to other drugs, medicaments and biological substances; F32.9 Major depressive disorder, single episode, unspecified; Z85.038 Personal history of other malignant neoplasm of large intestine
CPT/HCPCS: 82140

== ENCOUNTER → 2017-07-21 | Outpatient (REF) | payer MEDICARE, OTHER ==
[2017-07-21 16:09] LABS: MEAN CORPUSCULAR HEMOGLOBIN 30.7 pg (27.0-33.0); MEAN CORPUSCULAR HGB CONC 32.4 g/dl (32.0-36.5); MEAN CORPUSCULAR VOLUME 94.6 fl (80.0-96.0); PLATELET COUNT, AUTOMATED 158 10^3/uL (150-450); RED BLOOD COUNT 3.91 10^6/uL (4.30-6.10); RED CELL DISTRIBUTION WIDTH 12.6 % (11.5-14.5); WHITE BLOOD COUNT 4.3 10^3/uL (4.0-10.0)
[2017-07-21 16:13] LABS: ANION GAP 7 MEQ/L (8-16); BLOOD UREA NITROGEN 17 MG/DL (7-18); CALCIUM LEVEL 8.5 MG/DL (8.8-10.2); CARBON DIOXIDE LEVEL 27 MEQ/L (21-32); CHLORIDE LEVEL 111 MEQ/L (98-107); CREATININE FOR GFR 1.09 MG/DL (0.70-1.30); GLOMERULAR FILTRATION RATE > 60.0 (>42); GLUCOSE, FASTING 110 MG/DL (70-100); POTASSIUM SERUM 3.8 MEQ/L (3.5-5.1); SODIUM LEVEL 145 MEQ/L (136-145)
== END ==
LOC: M SFHCPLAZ 13:45
DX: Z86.39 Personal history of other endocrine, nutritional and metabolic disease (principal); Z87.448 Personal history of other diseases of urinary system
CPT/HCPCS: 80048

== ENCOUNTER → 2017-11-04 | Outpatient (REF) | payer MEDICARE, OTHER ==
[2017-11-04 12:15] LABS: HEMATOCRIT 40.2 % (42.0-52.0); MEAN CORPUSCULAR HEMOGLOBIN 30.7 pg (27.0-33.0); MEAN CORPUSCULAR HGB CONC 32.3 g/dl (32.0-36.5); PLATELET COUNT, AUTOMATED 134 10^3/uL (150-450); RED BLOOD COUNT 4.23 10^6/uL (4.30-6.10); WHITE BLOOD COUNT 5.5 10^3/uL (4.0-10.0)
[2017-11-04 12:32] LABS: ALBUMIN 3.5 GM/DL (3.2-5.2); ALBUMIN/GLOBULIN RATIO 0.97 (1.00-1.93); ALKALINE PHOSPHATASE 96 U/L (45-117); ALT/SGPT 21 U/L (12-78); ANION GAP 10 MEQ/L (8-16); AST/SGOT 19 U/L (7-37); BILIRUBIN,TOTAL 0.4 MG/DL (0.2-1.0); BLOOD UREA NITROGEN 24 MG/DL (7-18); CALCIUM LEVEL 8.6 MG/DL (8.8-10.2); CARBON DIOXIDE LEVEL 26 MEQ/L (21-32); CHLORIDE LEVEL 109 MEQ/L (98-107); CHOLESTEROL LEVEL 129 MG/DL (<200); CHOLESTEROL RISK RATIO 3.583 (<5); CREATININE FOR GFR 0.99 MG/DL (0.70-1.30); GLOMERULAR FILTRATION RATE > 60.0 (>42); GLUCOSE, FASTING 120 MG/DL (70-100); HDL CHOLESTEROL 36 MG/DL (>40); LDL CHOLESTEROL 78.2 MG/DL (<100); MAGNESIUM LEVEL 1.9 MG/DL (1.8-2.4); NON-HDL-C 93 MG/DL; POTASSIUM SERUM 4.5 MEQ/L (3.5-5.1); SODIUM LEVEL 145 MEQ/L (136-145); TOTAL PROTEIN 7.1 GM/DL (6.4-8.2); TRIGLYCERIDES LEVEL 74 MG/DL (<150)
[2017-11-04 12:56] LABS: ESTIMATED AVERAGE GLUCOSE 134 MG/DL (60-110); HEMOGLOBIN A1c 6.3 %
== END ==
LOC: M SFHCPLAZ 08:03
DX: G47.30 Sleep apnea, unspecified (principal); E11.9 Type 2 diabetes mellitus without complications; E78.00 Pure hypercholesterolemia, unspecified; G25.81 Restless legs syndrome; E03.9 Hypothyroidism, unspecified
CPT/HCPCS: 83735

== ENCOUNTER 2017-12-16 06:01 | Emergency (ER) | payer MEDICARE, OTHER | END 2017-12-16 07:18 | disposition home or self-care (01) | LOC: M ED 06:01 | DX: S46.001A Unspecified injury of muscle(s) and tendon(s) of the rotator cuff of right shoulder, initial encounter (principal); X50.0XXA Overexertion from strenuous movement or load, initial encounter; Y92.89 Other specified places as the place of occurrence of the external cause; M19.011 Primary osteoarthritis, right shoulder; I10 Essential (primary) hypertension; E11.9 Type 2 diabetes mellitus without complications; F33.9 Major depressive disorder, recurrent, unspecified; E03.9 Hypothyroidism, unspecified; E78.00 Pure hypercholesterolemia, unspecified; K21.9 Gastro-esophageal reflux disease without esophagitis; G47.30 Sleep apnea, unspecified; H40.9 Unspecified glaucoma; Z79.899 Other long term (current) drug therapy; Z79.82 Long term (current) use of aspirin; Z88.8 Allergy status to other drugs, medicaments and biological substances; Z91.041 Radiographic dye allergy status | CPT/HCPCS: 73030 ==

== ENCOUNTER → 2018-03-09 | Outpatient (CLI) | payer MEDICARE, OTHER ==
[~2018-03-09] MED LIST changes: +ASPI-222 PO; -ASPI325T28 PO; +GABA-1171 PO; -GABA-279 PO; +GABA-843 PO; +KLOR10TA76 PO; +LEVO112T25 PO; +OMEP20CA3 PO; +PRAV1TAB39 PO; +ULTR50TA8 PO; +VITMTA PO
--- NOTE | 2018-03-09 09:12 | REP ---
MR LUMBAR SPINE WITHOUT CONTRAST: HISTORY: Back pain. COMPARISON: 09/01/2016. Decreased signal intensity on T2-weighted images is present in the T11-12 through L5-S1 intervertebral discs. The discs are decreased in height. These findings are consistent with disc degeneration. A disc bulge is present at the T11-12 level. There is minimal effacement of the thecal sac without spinal cord compression. The T11 neural foramina are patent on sagittal images. A diffuse disc bulge is present on L1-2 level. There is minimal compression of the thecal sac. There is hypertrophy of the posterior articulating facets. The L1 nerves exit the neural foramina without compression. A diffuse disc bulge and small central disc protrusion are present at the L2-3 level. There is hypertrophy of the ligamenta flava and posterior articulating facets. A 2 mm synovial cyst is present medial to the left L2-3 facet joint. These findings produce mild central canal stenosis. The L2 nerves exit the neural foramina without compression. A diffuse disc bulge is present at the L3-4 level. There is hypertrophy of the ligamenta flava and posterior articulating facets. These findings produce mild central canal stenosis. The L3 nerves exit the neural foramina without compression. A diffuse disc bulge and small disc extrusion central and eccentric to the left are present at the L4-5 level. The disc extrusion is increased in size. There is inferior migration of disc material. There is hypertrophy of the ligamenta flava and posterior articulating facets. These findings produce moderate central canal stenosis. There is compression of the L5 nerves in the L5 lateral recesses. There is compression of the L4 nerves in the neural foramina. A diffuse disc bulge and mild size right paracentral disc protrusion are present at the L5-S1 level. There is mild compression of the thecal sac and right S1 nerve as its exits the thecal sac. There is hypertrophy of the posterior articulating facets. The L5 nerves exit the neural foramina without compression. The conus medullaris is normal in appearance terminating at the level of the L1-2 intervertebral disc. Normal signal intensity is present in the lumbar vertebral bodies. IMPRESSION: 1. Diffuse disc bulge at the L1-2 with minimal thecal sac compression. 2. Mild central canal stenosis at the L2-3 level secondary to disc bulge, disc protrusion, ligamentous, and facet hypertrophy and a left synovial cyst. The left synovial cyst is a new finding. 3. Mild central canal stenosis at the L3-4 level secondary to disc bulge, ligamentous and facet hypertrophy. 4. Moderate central canal stenosis at the L4-5 level secondary to disc bugle, disc extrusion, ligamentous, and facet hypertrophy. There is compression of the L4 nerves in the neural foramina. The disc extrusion is increased in size. 5. Diffuse disc bulge and mild size right paracentral disc protrusion at the L5-S1 level with mild compression of the thecal sac and right S1 nerve as it exits the thecal sac. There is no other significant change. Electronically Signed by Tio Nair MD 03/09/2018 09:25 A
--- NOTE | 2018-03-09 13:39 | REP ---
WHOLE BODY RADIONUCLIDE BONE SCAN: HISTORY: Intervertebral disc degeneration lumbar region. TECHNIQUE: 22.0 mCi technetium 99m MDP is injected, and standard whole body bone scan imaging was acquired. SCINTIGRAPHIC FINDINGS: There is a normal distribution of skeletal tracer with uptake in bilateral kidneys and in the urinary bladder. There is osteoarthritic uptake in both acromioclavicular joints and in both wrists. There is some small joint uptake in the great toe on the right. Mild degenerative uptake is seen in the knees and hips bilaterally. There is no evidence to suggest skeletal metastatic disease. No significant spine uptake is seen. IMPRESSION: No evidence to suggest skeletal metastatic disease. Osteoarthritic pattern of increased uptake as above. Electronically Signed by Juan Silverman MD 03/09/2018 08:34 P
== END ==
LOC: M RAD 07:07
PROVIDERS: ATTEND Physician Assistant
DX: M51.26 Other intervertebral disc displacement, lumbar region (principal); M51.27 Other intervertebral disc displacement, lumbosacral region; M47.896 Other spondylosis, lumbar region; M48.061 Spinal stenosis, lumbar region without neurogenic claudication
CPT/HCPCS: 72148; 78306; A9503

== ENCOUNTER → 2018-05-13 | Outpatient (REF) | payer MEDICARE, OTHER ==
[~2018-05-13] MED LIST changes: -LASI20TA PO; +LASI20TA3 PO
== END ==
LOC: CANPREREF → M SFHCPLAZ 08:39
PROVIDERS: ATTEND Internal Medicine
DX: Z53.9 Procedure and treatment not carried out, unspecified reason (principal); Z85.038 Personal history of other malignant neoplasm of large intestine; E11.9 Type 2 diabetes mellitus without complications; E03.9 Hypothyroidism, unspecified

== ENCOUNTER → 2018-05-13 | Outpatient (REF) | payer MEDICARE, OTHER ==
[2018-05-13 12:22] LABS: HEMATOCRIT 38.3 % (42.0-52.0); HEMOGLOBIN 12.4 g/dl (13.5-17.5); MEAN CORPUSCULAR HEMOGLOBIN 30.3 pg (27.0-33.0); MEAN CORPUSCULAR HGB CONC 32.4 g/dl (32.0-36.5); MEAN CORPUSCULAR VOLUME 93.6 fl (80.0-96.0); PLATELET COUNT, AUTOMATED 142 10^3/uL (150-450); RED BLOOD COUNT 4.09 10^6/uL (4.30-6.10); WHITE BLOOD COUNT 4.9 10^3/uL (4.0-10.0)
[2018-05-13 12:35] LABS: ALBUMIN 3.5 GM/DL (3.2-5.2); ALT/SGPT 25 U/L (12-78); BILIRUBIN,TOTAL 0.3 MG/DL (0.2-1.0); BLOOD UREA NITROGEN 27 MG/DL (7-18); CALCIUM LEVEL 8.3 MG/DL (8.8-10.2); CARBON DIOXIDE LEVEL 29 MEQ/L (21-32); CHLORIDE LEVEL 110 MEQ/L (98-107); CREATININE FOR GFR 1.01 MG/DL (0.70-1.30); GLOMERULAR FILTRATION RATE > 60.0 (>42); GLUCOSE, FASTING 117 MG/DL (70-100); POTASSIUM SERUM 4.8 MEQ/L (3.5-5.1); SODIUM LEVEL 143 MEQ/L (136-145); TOTAL PROTEIN 6.6 GM/DL (6.4-8.2)
[2018-05-13 12:57] LABS: MALB URINE SIEMENS 8.9 MG/L; MAU/CREAT RATIO 6.7 MCG/MG (0.0-30.0)
[2018-05-13 13:09] LABS: HEMOGLOBIN A1c 7.3 %
== END ==
LOC: M LABDRAWP 08:17
PROVIDERS: ATTEND Internal Medicine
DX: Z85.038 Personal history of other malignant neoplasm of large intestine (principal); E11.9 Type 2 diabetes mellitus without complications; E03.9 Hypothyroidism, unspecified

== ENCOUNTER → 2018-08-01 | Outpatient (REF) | payer MEDICARE, OTHER ==
[~2018-08-01] MED LIST changes: -TIMO0.5S3 OU; +TIMO5SOL6 OU
== END ==
LOC: M SFHCPLAZ 09:56
PROVIDERS: ATTEND Internal Medicine
DX: M31.6 Other giant cell arteritis (principal)

== ENCOUNTER 2018-11-25 10:42 | Emergency (ER) | payer MEDICARE, OTHER ==
[~2018-11-25] VITALS: Ht 162.6 cm; Wt 90.9 kg
[~2018-11-25 10:42] MED LIST changes: -ASPI-222 PO; +ASPI-527 PO; -OMEP20CA3 PO; +OMEP20CA4 PO
[2018-11-25] MEDS ORDERED: VOLT1GEL15 TD (11:14)
[2018-11-25] MEDS ORDERED: REFR0.5D8 OP (11:14)
[2018-11-25] MEDS ORDERED: LEVO125T4 (11:14)
[2018-11-25] MEDS ORDERED: ASPI81TA85 PO (11:14)
[2018-11-25] MEDS ORDERED: UROX1TAB8 PO (11:14)
--- NOTE | 2018-11-25 11:50 | REP ---
Back and hip pain. Technique: Frontal view of the pelvis with neutral and frog lateral views of the right hip. Findings: No acute fracture or dislocation. Moderate arthritic degenerative changes includes increase sclerosis, joint space narrowing, and marginal spurring. Impression: Early moderate arthritic changes to the pelvis and right hip. Electronically Signed by Gonzalez Garcia MD 11/25/2018 11:42 A
[2018-11-25] MEDS ORDERED: traMADol 50 MG TAB PO ONE (12:15)
--- NOTE | 2018-11-25 12:46 | REP ---
Clinical: Right lower extremity pain . Technique: Kwong scale and color Doppler evaluation using linear high frequency transducer. Findings: Ultrasound examination of the right lower extremity deep venous structures from the common femoral vein to the popliteal vein demonstrates normal compressibility flow and wave patterns in response to respiration and augmentation. There is no evidence for deep venous thrombosis. Impression: No evidence for deep venous thrombosis. Electronically Signed by Gonzalez Garcia MD 11/25/2018 12:37 P
[2018-11-25] MEDS ORDERED: TRAM50TA2 PO (13:38)
[2018-11-25 14:22] VITALS: BP 150/67
== END 2018-11-25 14:33 | disposition home or self-care (01) ==
LOC: M ED 10:42 → EDBD 10:42 → M ED 14:33
DX: M54.10 Radiculopathy, site unspecified (principal); M79.604 Pain in right leg; E11.9 Type 2 diabetes mellitus without complications; K21.9 Gastro-esophageal reflux disease without esophagitis; I25.10 Atherosclerotic heart disease of native coronary artery without angina pectoris; E78.9 Disorder of lipoprotein metabolism, unspecified; E07.9 Disorder of thyroid, unspecified; G47.30 Sleep apnea, unspecified; M19.90 Unspecified osteoarthritis, unspecified site; M48.00 Spinal stenosis, site unspecified; Z88.8 Allergy status to other drugs, medicaments and biological substances; Z91.041 Radiographic dye allergy status; Z91.030 Bee allergy status; Z79.899 Other long term (current) drug therapy; Z79.82 Long term (current) use of aspirin

== ENCOUNTER → 2018-12-12 | Outpatient (CLI) | payer MEDICARE, OTHER ==
[~2018-12-12] MED LIST changes: +ASPI81TA85 PO; +LEVO125T4; +REFR0.5D8 OP; +TRAM50TA2 PO; +UROX1TAB8 PO; +VOLT1GEL15 TD
[2018-12-12 08:31] LABS: HEMOGLOBIN A1c 6.2 %
[2018-12-12 08:43] LABS: ALBUMIN 3.6 GM/DL (3.2-5.2); ALT/SGPT 24 U/L (12-78); BILIRUBIN,TOTAL 0.6 MG/DL (0.2-1.0); BLOOD UREA NITROGEN 30 MG/DL (7-18); C REACTIVE PROTEIN QUANTITATIV < 0.30 MG/DL (0.00-0.30); CALCIUM LEVEL 8.9 MG/DL (8.8-10.2); CARBON DIOXIDE LEVEL 26 MEQ/L (21-32); CHLORIDE LEVEL 111 MEQ/L (98-107); CHOLESTEROL LEVEL 148 MG/DL (<200); CHOLESTEROL RISK RATIO 3.794 (<5); CREATININE FOR GFR 0.99 MG/DL (0.70-1.30); GLOMERULAR FILTRATION RATE > 60.0 (>42); GLUCOSE, FASTING 114 MG/DL (70-100); HDL CHOLESTEROL 39 MG/DL (>40); LDL CHOLESTEROL 88 MG/DL (<100); MAGNESIUM LEVEL 1.8 MG/DL (1.8-2.4); NON-HDL-C 109 MG/DL; POTASSIUM SERUM 4.4 MEQ/L (3.5-5.1); SODIUM LEVEL 143 MEQ/L (136-145); TOTAL PROTEIN 7.2 GM/DL (6.4-8.2); TRIGLYCERIDES LEVEL 107 MG/DL (<150)
== END ==
LOC: M LAB 07:29
PROVIDERS: ATTEND Internal Medicine
DX: G25.81 Restless legs syndrome (principal); K21.9 Gastro-esophageal reflux disease without esophagitis; E11.9 Type 2 diabetes mellitus without complications; E78.00 Pure hypercholesterolemia, unspecified; I25.10 Atherosclerotic heart disease of native coronary artery without angina pectoris

== ENCOUNTER → 2019-01-11 | Outpatient (CLI) | payer MEDICARE, OTHER ==
[~2019-01-11] MED LIST changes: -OMEP40CA2 PO; +OMEP40CA97 PO
--- NOTE | 2019-01-14 23:05 | ECWPNPC ---
PATIENT NAME: WAYLON FRAZIER : 1940 GENDER: MALE VISIT DATE: 01/11/2019 DISCHARGE DATE: 01/11/19 0000 VISIT LOCKED DATE TIME: PHYSICIAN: CHRISTIANNE AGUIRRE MD RESOURCE: CHRISTIANNE AGUIRRE MD REASON FOR APPOINTMENT 1. LOW BACK PAIN/LUMBAR STENOSIS/LUMBAR INJ HISTORY OF PRESENT ILLNESS PAIN SCREENING: PATIENT HAS A COMPLAINT OF ACUTE OR CHRONIC PAIN :YES 78 YEAR OLD MALE PATIENT WITH A HISTORY OF CHRONIC LOW BACK AND LEG PAIN. THE PATIENT DESCRIBES THE PAIN ACHING, BURNING, AND SHARP WITH A PAIN SCORE OF 0-1/10 DEPENDING ON PHYSICAL ACTIVITY. THE PATIENT STATES HIS PAIN STARTS IN HIS LOW BACK AND RADIATES DOWN MAINLY HIS RIGHT LEG. THE PATIENT SAYS HIS PAIN WAS SEVERE IN THE PAST, HOWEVER PHYSICAL THERAPY HAS HELPED REDUCE HIS PAIN SIGNIFICANTLY. THE PATIENT SAYS HE IS DOING MUCH BETTER RIGHT NOW. THE PATIENT MENTIONS HE HAS A PAST HISTORY OF COLON CANCER IN 1998, THAT HAS BEEN CLEARED. PATIENT DENIES UNEXPLAINABLE WEIGHT LOSS, FEVER, CHILLS, NEW CHANGES ON HIS URINARY OR BOWEL CONTROL. THE PATIENT REPORTS HE HAS BEEN EXPERIENCING URINARY INCONTINENCE FOR A WHILE. FALL RISK SCREENING: SCREENING :NO FALLS REPORTED IN THE LAST YEAR CURRENT MEDICATIONS TAKING MAY HAVE - - CPAP MACHINE TUBING DX: G47.30 DAILY USE TAKING FUROSEMIDE 20 MG TABLET 1 TABLET ORALLY DAILY ON MONDAYS AND THURSDAYS TAKING ASPIRIN 325 MG TABLET 1 TABLET ORALLY ONCE A DAY TAKING CENTRUM SILVER ULTRA MENS TABLET DIRECTED ORALLY TAKING METAMUCIL 30.9 % POWDER DIRECTED ORALLY TAKING TRAVATAN Z 0.004 % SOLUTION 1 DROP INTO BOTH EYES OPHTHALMIC ONCE A DAY TAKING REFRESH 1.4-0.6 % SOLUTION 1 DROP INTO AFFECTED EYE NEEDED OPHTHALMIC DAILY TAKING FLONASE 50 MCG/ACT SUSPENSION 2 SPRAY IN EACH NOSTRIL NASALLY ONCE A DAY TAKING NITROSTAT 0.4 MG TABLET SUBLINGUAL 1 TABLET UNDER THE TONGUE AND ALLOW TO DISSOLVE NEEDED SUBLINGUAL EVERY 0 HRS TAKING OMEPRAZOLE 20 MG CAPSULE DELAYED RELEASE 1 CAPSULE ORALLY ONCE A DAY TAKING SERTRALINE HCL 100 MG TABLET 1 TABLET ORALLY ONCE A DAY TAKING KLOR-CON 10 10 MEQ TABLET EXTENDED RELEASE 1 TABLET ORALLY DAILY TAKING PRAVASTATIN SODIUM 20 MG TABLET 1 TABLET ORALLY ONCE A DAY TAKING TRAMADOL HCL 50 MG TABLET 1 TABLET ORALLY EVERY 6 HOURS NEEDED FOR PAIN. MDD=4 TAKING UROXATRAL 10 MG TABLET EXTENDED RELEASE 24 HOUR 1 TABLET IMMEDIATELY AFTER THE SAME MEAL ORALLY ONCE A DAY TAKING MELOXICAM 7.5 MG TABLET 1 TABLET ORALLY WITH FOOD ONCE A DAY NEEDED TAKING MIRAPEX ER 2.25 MG TABLET EXTENDED RELEASE 24 HOUR 1 TABLET ORALLY ONCE A DAY TAKING SYNTHROID 125 MCG TABLET 2 TABLETS ORALLY ONCE A DAY NOT-TAKING VOLTAREN 1 % GEL 4GRAMS TO BACK TRANSDERMAL THREE TIMES DAILY NOT-TAKING TYLENOL ARTHRITIS PAIN 650 MG TABLET EXTENDED RELEASE DIRECTED ORALLY MEDICATION LIST REVIEWED AND RECONCILED WITH THE PATIENT PAST MEDICAL HISTORY DIABETES MELLITUS CORONARY ARTERY DISEASE OBSTRUCTIVE UROPATHY RESTLESS LEG SYNDROME GASTROESOPHAGEAL REFLUX HISTORY OF COLON CANCER HYPERCHOLESTEROLEMIA HYPOTHYROIDISM, UNSPECIFIED SPINAL STENOSIS OF LUMBAR REGION SLEEP APNEA 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, LUMBAR DYSTHYMIA GLAUCOMA NEPHROLITHIASIS TRIGEMINAL NEURALGIA ALLERGIES CT SCAN DYE: HIVES - ALLERGY IODINE: ALLERGY BETA BLOCKERS: ALLERGY SURGICAL HISTORY TONSILLECTOMY CHILDHOOD PAPILLOTOMY OF URETHRA IN PAST REMOTE RECTAL FISSURE REPAIR REMOTE DUKES B1 COLON CANCER RESECTED FEBRUARY 1999 RIGHT TEMPORAL ARTERY BIOPSY FEBRUARY 2002 CORONARY ARTERY STENT PLACEMENT TO LEFT CIRCUMFLEX CORONARY 11/10/01 CORONARY ARTERY STENT PLACEMENT TO RIGHT CORONARY ARTERY 11/15/2001 BILATERAL CATARACT 2003 CHOLECYSTECTOMY 2004 CIRCUMCISION JUNE 2005 VENTRAL HERNIA REPAIR 07/14/2011 LITHOTRIPSY SEPTEMBER 15, 2011 COLONOSCOPY WITH POLYPECTOMY 01/2013 POSTERIOR INTRAOCULAR LENS REMOVED AND REPLACED WITH AN ANTERIOR CHAMBER LENS, AND HE HAD A VITRECTOMY 11/2017 FAMILY HISTORY FATHER: DIAGNOSED WITH UNSPECIFIED HEART DISEASE MOTHER: UNSPECIFIED HEART DISEASE SIBLINGS: DIABETES, UNSPECIFIED HEART DISEASE MATERNAL GRAND FATHER: DIABETES REMARKABLE FOR THYROID DISEASE IN HIS FATHER-- AT AGE 93 IN 2009, DIABETES ON THE MATERNAL SIDE OF HIS FAMILY, AND A SISTER WITH ANGINA. THREE CHILDREN ARE HEALTHY. SOCIAL HISTORY GENERAL: TOBACCO USE ARE YOU A:NONSMOKER HIV / HEP-C SCREENING HIV TEST OFFERED TO PATIENT:YES DATE OFFERED:07/21/2017 TEST ACCEPTED:NO HEP-C TEST OFFERED TO PATIENT:YES DATE OFFERED:07/21/2017 REASON:PATIENT DECLINED TEST ACCEPTED:NO REASON:PATIENT DECLINED BROCHURE PROVIDED TO PATIENTYES HOUSING: OWNS HOME. LANGUAGE LANGUAGES SPOKEN:SYRIAC DOMESTIC VIOLENCE DO YOU FEEL SAFE IN YOUR ENVIRONMENT?YES BMI CARE GOAL FOLLOW-UP ABOVE NORMAL BMI FOLLOW-UPGIVING ENCOURAGEMENT TO EXERCISE RECREATIONAL DRUG USE DRUG USE?NO LEARNING BARRIERS / SPECIAL NEEDS CHANGE FROM LAST VISIT?NO BARRIERS TO LEARNING?NO HEARING IMPAIRED?YES VISION IMPAIRED?YES COGNITIVELY IMPAIRED?NO :CORRECTIVE LENSES READINESS TO LEARN?YES LEARNING PREFERENCES?NO LEARNING CAPABILITIES PRESENT?YES EMOTIONAL BARRIERS?NO SPECIAL DEVICES?NO AGRICULTURAL SCIENTIST NEEDED?NO PAIN CLINIC PFS, CLERGY, PUBLIC HEALTH REFERRALS HAS THE PATIENT BEEN EDUCATED REGARDING HIS/HER PLAN OF CARE?YES HAS THE PATIENT BEEN EDUCATED REGARDING PAIN, THE RISK FOR PAIN, THE IMPORTANCE OF EFFECTIVE PAIN MANAGEMENT, AND THE PAIN ASSESSMENT PROCESS?YES LATEX QUESTIONNAIRE LATEX ALLERGY : HAVE YOU EVER DEVELOPED ANY TYPE OF REACTION AFTER HANDLING LATEX PRODUCTS SUCH RUBBER GLOVES, CONDOMS, DIAPHRAGMS, BALLOONS, SOCKS, OR UNDERWEAR?NO LATEX ALLERGY : HAVE YOU EVER DEVELOPED ANY TYPE OF REACTION DURING OR AFTER DENTAL APPOINTMENT, VAGINAL/RECTAL EXAMINATION, SURGICAL PROCEDURE, OR ANY OTHER EXPOSURE?NO DATE ASKED : 06/06/2018 LATEX RISK : HAVE YOU EVER HAD ANY DIFFICULTY BREATHING OR HIVES AFTER EATING OR HANDLING ANY FRUITS, OR VEGETABLES; SUCH KIWI, BANANAS, STONE FRUITS, OR CHESTNUTSNO LATEX RISK : DO YOU HAVE A PREVIOUS PERSONAL HISTORY OF MORE THAN NINE SURGERIES, SPINA BIFIDA, OR REPEATED CATHERIZATIONS? YES - PLEASE INDICATE : > 9 SURGERIES LATEX RISK : ARE YOU FREQUENTLY EXPOSED TO LATEX PRODUCTS IN YOUR OCCUPATION?NO ADVANCE DIRECTIVE ADVANCE DIRECTIVE DISCUSSED WITH PATIENT:YES PT HAS HCP FOR [id number] [employer] STATUS: 1962, HAS CHILDREN. ALCOHOL SCREENING DID YOU HAVE A DRINK CONTAINING ALCOHOL IN THE PAST YEAR?NO POINTS0 INTERPRETATIONNEGATIVE OCCUPATION: [employer] WHICH HE CLOSED IN 2009. DOES SNOW PLOWING IN THE WINTER. SEXUAL HX HAD SEX IN THE LAST 12 MONTHS (VAGINAL, ORAL, OR ANAL)?NO HAVE YOU EVER HAD AN STD?NO REVIEWED WITH PATIENT 01/11/19 1615 BV. HOSPITALIZATION/MAJOR DIAGNOSTIC PROCEDURE SURGERY RELATED FACIAL LACERATION FROM FALL 3 STITCHES 2014 SMC-DYSPNEA ON EXERTION. CAD, DEPRESSION, RESTLESS LEG SYNDROME, SCHWANNOMA, HYPOTHYROIDISM 08/31-09/02/2016 REVIEW OF SYSTEMS REVIEWED BY: PROVIDER: CHRISTIANNE AGUIRRE MD . CONSTITUTIONAL: ANY CHANGE IN YOUR MEDICAL CONDITION? YES, PT STATES HE IS SCHEDULED FOR BACK SURGERY IN [place] IN A FEW WEEKS . CHILLS NO . FEVER NO . INFECTION: DO YOU HAVE NEW INFECTIONS? NO . DO YOU HAVE HISTORY OF MRSA? NO . MUSCULOSKELETAL: ANY NEW PATTERNS OF PAIN OR NUMBNESS? NO . SYTEMIC LUPUS NO . GASTROENTEROLOGY: ANY NEW CHANGE IN BOWEL CONTROL? NO . BARRETTS ESOPHAGUS NO . CIRRHOSIS NO . HEPATITIS NO . LIVER FAILURE NO . ACID REFLUX YES, ON MEDICATION . UNEXPLAINED WEIGHT LOSS NO . GENITOURINARY: ANY NEW CHANGE IN BLADDER CONTROL? YES, PT HAS NOTICED INCREASED URGENCY AND INTERMITTENT LOSS OF CONTROL SINCE HIS BACK PAIN HAS GOTTEN WORSE OVER THE PAST 2 MONTHS . IS THERE A CHANCE YOU COULD BE ? NO . HEMATOLOGY/LYMPH: DO YOU TAKE ANY BLOOD THINNERS? (FOR EXAMPLE- COUMADIN, PLAVIX, AGGRENOX, PLATEL, PRADAXA, OR XARELTO) NO . WHEN WAS YOUR LAST DOSE? DATE: TIME: . LOW PLATELET COUNT NO . SICKLE CELL DISEASE NO . VON WILLIEBRANDS NO . FACTOR V LEIDEN NO . THALLASEMIA NO . ANEMIA NO . EASY BRUISING NO . NEUROLOGY: HAVE YOU FALLEN IN THE PAST 12 MONTHS? NO . ANY NEW EXTREMITY NUMBNESS OR WEAKNESS? NO . HEAD INJURY NO . DEMENTIA NO . CEREBRAL PALSY NO . MULTIPLE SCLEROSIS NO . DIZZINESS NO . HEADACHE YES . STROKES NO . VERTIGO NO . CARDIOLOGY: DO YOU HAVE A PACEMAKER OR DEFIBRILLATOR? NO . ANGINA NO . HEART ATTACK NO . HEART SURGERY STENTS PLACED . CONGESTIVE HEART FAILURE/FLUID OVERLOAD YES . CHEST PAIN NO . HIGH BLOOD PRESSURE NO . IRREGULAR HEART BEAT NO . RESPIRATORY: HAVE YOU BEEN SICK IN THE PAST WEEK? NO . FEVER NO . FLU LIKE SYMPTOMS? NO . CPAP YES . BYPAP NO . ASTHMA NO . EMPHYSEMA NO . CHRONIC LUNG DISEASES NO . SHORTNESS OF BREATH ON EXERTION NO . COUGH NO . SNORING NO . INTEGUMENTARY: DO YOU HAVE ANY RASHES OR OPEN SORES? NO . ALLERGIC/IMMUNO: ARE YOU ALLERGIC TO IV DYE? YES . ANY NEW ALLERGIES? NO . PSYCHIATRIC: DO YOU HAVE THOUGHTS OF HURTING YOURSELF OR SOMEONE ELSE? NO . ARE YOU ABUSED, NEGLECTED, OR IN AN UNSAFE ENVIRONMENT? NO . ENDOCRINOLOGY: ARE YOU DIABETIC? NO . THYROID DISORDER HYPOTHYROID . OTHER: DO YOU NEED ANY PRESCRIPTIONS? NO . IF YES, PLEASE LIST: ____ . ANY NEW PROBLEMS WITH YOUR MEDICATIONS? NO . WHEN DID YOU LAST EAT? ____ . WHEN DID YOU LAST DRINK? ____ . WHAT DID YOU LAST DRINK? ____ . NAME OF PERSON DRIVING YOU HOME? ____ . DO YOU HAVE ANY OTHER QUESTIONS OR CONCERNS NO . VITAL SIGNS WT 205.0 LBS, HT 5'4", BMI 35.18 INDEX, BP 128/61 MM HG, HR 57 /MIN, RR 18 /MIN, TEMP 97.4 F, OXYGEN SAT % 99%, NA INITIALS AW 1547, REVIEWED BY: BV. EXAMINATION GENERAL EXAMINATION: PATIENT IS ALERT O X 3 AND COOPERATIVE. LUNGS CLEAR, TO AUSCULTATION. HEART: NO MURMURS OR GALLOPS; FACIAL CRANIAL NERVES ARE GROSSLY NORMAL. GOOD SYMMETRY OF FACIAL MUSCLE MOVEMENT. NORMAL VISUAL ALMARAZ. ANTALGIC WALK. LEG STRENGTH IS ADEQUATE IN BOTH LEGS. STRAIGHT LEG RAISE OF BOTH LEGS ARE NEGATIVE FOR RADICULOPATHY. MRI OF THE LUMBAR SPINE DONE ON 12/05/2018 SHOWS BULGING DISCS AT MULTIPLE LEVELS, RIGHT DISC EXTRUSION AT L5-S1, AND IMPINGEMENT OF NERVE ROOTS WITHIN THE RIGHT ASPECT OF THE SPINAL CANAL. ASSESSMENTS INTERVERTEBRAL DISC DISORDERS WITH RADICULOPATHY, LUMBAR REGION - M51.16 (PRIMARY) INTERVERTEBRAL DISC DISORDERS WITH RADICULOPATHY, LUMBOSACRAL REGION - M51.17 TREATMENT INTERVERTEBRAL DISC DISORDERS WITH RADICULOPATHY, LUMBAR REGION CLINICAL NOTES: WE DISCUSSED SEVERAL ISSUES WITH MR. FRAZIER'S PAIN MANAGEMENT CASE. FOR NOW WE AGREED TO HOLD OFF ON ANY INTERVENTIONS SINCE THE PATIENT IS DOING WELL RIGHT NOW. SHOULD THE PAIN RETURN, I WILL CONSIDER ORDERING PHYSICAL THERAPY FOR THE PATIENT, SINCE IT HAS GREATLY HELPED HIM IN THE PAST. I ADVISED WITH THE PATIENT THAT SHOULD HE EXPERIENCE ANY NEW URINARY OR BOWEL INCONTINENCE, HE IS TO BE SEEN IN THE ER OR BY HIS SURGEON TO CONSIDER SURGICALLY REPAIR THE ISSUE. THE PATIENT WAS ADVISED TO CALL TO BE SEEN IF HIS PAIN RETURNS AND I MAY START HIM ON PHYSICAL THERAPY AGAIN. INSTRUCTIONS WERE GIVEN, QUESTIONS WERE ANSWERED, PATIENT REPORTS UNDERSTANDING AND AGREES WITH THE PLAN. I, GEORGE YAO, DOCUMENTED THE ABOVE INFORMATION ACTING A SCRIBE FOR DR. AGURIRE. I HAVE REVIEWED THE ABOVE DOCUMENT, WRITTEN BY GEORGE YAO SCRIBJono AND I VERIFY THAT IT IS ACCURATE. DEAR KWABENA TRACEY: THANK YOU FOR YOUR KIND REFERRAL OF WAYLON FRAZIER. IF YOU WANT TO DISCUSS HIS CASE WITH ME PLEASE CALL ME AT THE PAIN CENTER AT [phone]. SINCERELY, CHRISTIANNE AGUIRRE MD PAIN MEDICINE . PROCEDURE CODES FA211 ESTABILISHED PATIENT [facility] FACILITY CHARGE G8427 CURRENT MEDS W/DOSAGES DOCUMENTED G8730 PAIN ASSESS POS TOOL F/U PLAN DOC DISPOSITION & COMMUNICATION FOLLOW UP REASON: CALL NEEDED, IF PAIN RETURNS WILL ORDER FOR PT ELECTRONICALLY SIGNED BY CHRISTIANNE AGUIRRE MD, ON 01/14/2019 AT 04:57 PM EDT DISCLAIMER : THIS IS A VISIT SUMMARY EXTRACTED FROM THE [employer] CHART. IT IS NOT A COPY OF THE [employer] PROGRESS NOTE. MTDD
== END ==
LOC: M PAIN 15:30
PROVIDERS: ATTEND Anesthesiology
DX: M51.16 Intervertebral disc disorders with radiculopathy, lumbar region (principal); M51.17 Intervertebral disc disorders with radiculopathy, lumbosacral region; G89.29 Other chronic pain; E11.9 Type 2 diabetes mellitus without complications; G25.81 Restless legs syndrome; K21.9 Gastro-esophageal reflux disease without esophagitis; E78.00 Pure hypercholesterolemia, unspecified; E03.9 Hypothyroidism, unspecified; G47.30 Sleep apnea, unspecified; Z88.3 Allergy status to other anti-infective agents; Z88.8 Allergy status to other drugs, medicaments and biological substances; Z91.041 Radiographic dye allergy status; Z79.82 Long term (current) use of aspirin; Z79.899 Other long term (current) drug therapy

== ENCOUNTER → 2019-02-27 | Outpatient (REF) ==
[~2019-02-27] MED LIST changes: -ALFU10TA2 PO; +ALFU10TA3 PO; +OMEP-172 PO; -OMEP20CA4 PO
[2019-02-27 10:19] LABS: HEMATOCRIT 33.5 % (42.0-52.0); HEMOGLOBIN 10.5 g/dl (13.5-17.5); MEAN CORPUSCULAR HEMOGLOBIN 30.6 pg (27.0-33.0); MEAN CORPUSCULAR HGB CONC 31.3 g/dl (32.0-36.5); MEAN CORPUSCULAR VOLUME 97.7 fl (80.0-96.0); PLATELET COUNT, AUTOMATED 150 10^3/uL (150-450); RED BLOOD COUNT 3.43 10^6/uL (4.30-6.10); WHITE BLOOD COUNT 4.9 10^3/uL (4.0-10.0)
[2019-02-27 11:05] LABS: ALBUMIN 2.6 GM/DL (3.2-5.2); ALT/SGPT 29 U/L (12-78); BILIRUBIN,TOTAL 0.9 MG/DL (0.2-1.0); BLOOD UREA NITROGEN 22 MG/DL (7-18); CARBON DIOXIDE LEVEL 30 MEQ/L (21-32); CHLORIDE LEVEL 108 MEQ/L (98-107); CHOLESTEROL LEVEL 105 MG/DL (<200); CHOLESTEROL RISK RATIO 3.387 (<5); CREATININE FOR GFR 0.93 MG/DL (0.70-1.30); GLOMERULAR FILTRATION RATE > 60.0 (>42); GLUCOSE, FASTING 164 MG/DL (70-100); HDL CHOLESTEROL 31 MG/DL (>40); LDL CHOLESTEROL 49 MG/DL (<100); NON-HDL-C 74 MG/DL; POTASSIUM SERUM 4.1 MEQ/L (3.5-5.1); SODIUM LEVEL 142 MEQ/L (136-145); THYROID STIMULATING HORMONE 0.371 uIU/ML (0.358-3.740); TOTAL PROTEIN 6.1 GM/DL (6.4-8.2); TRIGLYCERIDES LEVEL 125 MG/DL (<150)
== END ==
LOC: SKLAB2 08:42
PROVIDERS: ATTEND Family Medicine
DX: D64.9 Anemia, unspecified (principal); I25.10 Atherosclerotic heart disease of native coronary artery without angina pectoris; E78.5 Hyperlipidemia, unspecified; E03.9 Hypothyroidism, unspecified

== ENCOUNTER → 2019-03-31 | Outpatient (REF) | payer MEDICARE, OTHER ==
[~2019-03-31] MED LIST changes: -OMEP-172 PO; +OMEP1CAP73 PO
[2019-03-31 14:17] LABS: APPEARANCE, URINE HAZY (CLEAR); BACTERIA, URINE AUTO NEGATIVE (NEGATIVE); BILIRUBIN, URINE AUTO NEGATIVE (NEGATIVE); BLOOD, URINE BLOOD NEGATIVE (NEGATIVE); CALCIUM OXALATE CRYSTALS SMALL; COLOR, URINE YELLOW (YELLOW); GLUCOSE, URINE (UA) AUTO NEGATIVE (NEGATIVE); KETONE, URINE AUTO NEGATIVE (NEGATIVE); LEUKOCYTE ESTERASE, URINE AUTO NEGATIVE (NEGATIVE); MUCUS, URINE SMALL (NEGATIVE); NITRITE, URINE AUTO NEGATIVE (NEGATIVE); PROTEIN, URINE AUTO NEGATIVE (NEGATIVE); RBC, URINE AUTO 0 /HPF (0-3); SQUAMOUS EPITHELIAL CELL UR AU 0 /HPF (0-6); WBC, URINE AUTO 1 /HPF (0-3)
== END ==
LOC: M SMT 13:38
PROVIDERS: ATTEND Nurse Practitioner Family
DX: N40.1 Benign prostatic hyperplasia with lower urinary tract symptoms (principal)
CPT/HCPCS: 51798; 81001; 87086; G0463

== ENCOUNTER → 2019-10-25 | Outpatient (REF) | payer MEDICARE, OTHER ==
[~2019-10-25] MED LIST changes: -ASPI81TA85 PO; +ASPI81TA86 PO
== END ==
LOC: M LAB REF 10:53
PROVIDERS: ATTEND Dermatology
DX: D23.30 Other benign neoplasm of skin of unspecified part of face (principal)

== ENCOUNTER 2019-11-02 15:29 | Emergency (ER) | payer MEDICARE, OTHER ==
[~2019-11-02 15:29] MED LIST changes: +METOPROLOL 5 MG/5 ML VIAL ONE; +NITROGLYCERIN 0.4 MG SUBL TABLET ONE
--- NOTE | 2019-11-30 11:53 | ECGEPIP ---
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
--- NOTE | 2019-12-06 14:44 | ECGEPIP ---
SINUS BRADYCARDIA WITH FIRST DEGREE AV BLOCK NONSPECIFIC T-WAVE ABNORMALITY ABNORMAL ECG SEE SCANNED DOWNTIME REPORT MTDD
[2019-12-18 01:02] LABS: BASO % 0.4 % (0.0-1.0); EOS # 0.4 10^3/uL (0.0-0.5); EOS % 7.9 % (0.0-3.0); HEMATOCRIT 37.9 % (42.0-52.0); LYMPH # 1.6 10^3/uL (1.5-5.0); LYMPH % 32.6 % (24.0-44.0); MEAN CORPUSCULAR HEMOGLOBIN 30.5 pg (27.0-33.0); MEAN CORPUSCULAR HGB CONC 31.7 g/dl (32.0-36.5); MEAN CORPUSCULAR VOLUME 96.2 fl (80.0-96.0); MONO # 0.3 10^3/uL (0.0-0.8); MONO % 5.6 % (0.0-5.0); NEUTROPHILS # 2.6 10^3/uL (1.5-8.5); NEUTROPHILS % 53.3 % (36.0-66.0); PLATELET COUNT, AUTOMATED 138 10^3/uL (150-450); RED BLOOD COUNT 3.94 10^6/uL (4.30-6.10); WHITE BLOOD COUNT 4.8 10^3/uL (4.0-10.0)
== END 2019-11-02 20:50 | disposition home or self-care (01) ==
LOC: M ED 15:29
DX: R07.9 Chest pain, unspecified (principal); I51.9 Heart disease, unspecified; E07.9 Disorder of thyroid, unspecified; E78.9 Disorder of lipoprotein metabolism, unspecified; Z95.5 Presence of coronary angioplasty implant and graft; Z82.49 Family history of ischemic heart disease and other diseases of the circulatory system; Z79.899 Other long term (current) drug therapy; Z79.82 Long term (current) use of aspirin; Z88.8 Allergy status to other drugs, medicaments and biological substances; Z91.041 Radiographic dye allergy status; Z91.030 Bee allergy status

== ENCOUNTER 2020-07-19 08:59 | Emergency (ER) | payer MEDICARE, OTHER ==
[~2020-07-19] VITALS: Ht 162.6 cm; Wt 96.7 kg
[~2020-07-19 08:59] MED LIST changes: +GABA-282 PO; -GABA-843 PO; +IBUP1TAB5 PO; -IBUP40TA PO; +ISOS1TAB35 PO; -ISOS30TA4 PO; -METOPROLOL 5 MG/5 ML VIAL ONE; -NITROGLYCERIN 0.4 MG SUBL TABLET ONE
[2020-07-19] MEDS ORDERED: LIDOCAINE 2% MDV 20ML VIAL SC ONE (09:35)
[2020-07-19] MEDS ORDERED: BOOSTRIX/ADACEL VACCINE (DIPHTH/PERTUSS/ACELL/TETANUS) 0.5ML SYR IM ONE (09:35)
[2020-07-19] MEDS ORDERED: PRAV20TA2 PO (09:38)
--- NOTE | 2020-07-19 09:54 | REP ---
INDICATION: trauma, r/o fx distal fifth finger COMPARISON: None. TECHNIQUE: Four views left 5th digit. FINDINGS: There is no evidence of acute fracture, dislocation, or intrinsic bone disease.There is soft tissue disruption at the tip of the digit. No radiopaque foreign body is seen. IMPRESSION: No fracture or dislocation. <Electronically signed by Eliot Kwong > 07/19/20 [id number]
[2020-07-19] MEDS ORDERED: CEPH500C PO (10:34)
[2020-07-19] MEDS ORDERED: BACI500O21 TOP (10:34)
[2020-07-19] MEDS ORDERED: CEPHALEXIN 500 MG CAP PO ONE (10:35)
[2020-07-19 11:22] VITALS: BP 128/56
== END 2020-07-19 11:20 | disposition home or self-care (01) ==
LOC: M ED 08:59
DX: S61.217A Laceration without foreign body of left little finger without damage to nail, initial encounter (principal); W31.9XXA Contact with unspecified machinery, initial encounter; Y92.009 Unspecified place in unspecified non-institutional (private) residence as the place of occurrence of the external cause; Y93.9 Activity, unspecified; Y99.9 Unspecified external cause status; Z79.82 Long term (current) use of aspirin; Z79.899 Other long term (current) drug therapy; Z91.030 Bee allergy status

== ENCOUNTER → 2020-09-13 | Outpatient (REF) | payer MEDICARE, OTHER ==
[~2020-09-13] MED LIST changes: +BACI500O21 TOP; +CEPH500C PO; +OMEP40CA4 PO; -OMEP40CA97 PO; +PRAV20TA2 PO
[2020-09-13 11:43] LABS: HEMATOCRIT 37.8 % (42.0-52.0); MEAN CORPUSCULAR HEMOGLOBIN 30.1 pg (27.0-33.0); MEAN CORPUSCULAR HGB CONC 31.7 g/dl (32.0-36.5); MEAN CORPUSCULAR VOLUME 94.7 fl (80.0-96.0); PLATELET COUNT, AUTOMATED 135 10^3/uL (150-450); RED BLOOD COUNT 3.99 10^6/uL (4.30-6.10); WHITE BLOOD COUNT 5.1 10^3/uL (4.0-10.0)
[2020-09-13 12:21] LABS: ALBUMIN 3.6 GM/DL (3.2-5.2); ALT/SGPT 23 U/L (12-78); BILIRUBIN,TOTAL 0.7 MG/DL (0.2-1.0); BLOOD UREA NITROGEN 23 MG/DL (7-18); CALCIUM LEVEL 8.5 MG/DL (8.8-10.2); CARBON DIOXIDE LEVEL 27 MEQ/L (21-32); CHLORIDE LEVEL 109 MEQ/L (98-107); CHOLESTEROL LEVEL 133 MG/DL (<200); GLOMERULAR FILTRATION RATE > 60.0 (>35); GLUCOSE, FASTING 106 MG/DL (70-100); HDL CHOLESTEROL 39 MG/DL (>40); LDL CHOLESTEROL 80 MG/DL (<100); NON-HDL-C 94 MG/DL; POTASSIUM SERUM 4.2 MEQ/L (3.5-5.1); SODIUM LEVEL 140 MEQ/L (136-145); TOTAL PROTEIN 6.9 GM/DL (6.4-8.2); TRIGLYCERIDES LEVEL 71 MG/DL (<150)
== END ==
LOC: M WUC 11:19
PROVIDERS: ATTEND Physician Assistant
DX: I25.10 Atherosclerotic heart disease of native coronary artery without angina pectoris (principal); I50.32 Chronic diastolic (congestive) heart failure; Z71.3 Dietary counseling and surveillance; E78.00 Pure hypercholesterolemia, unspecified

== ENCOUNTER → 2020-11-12 | Outpatient (CLI) | payer MEDICARE, OTHER ==
[2020-11-12 11:30] LABS: HEMOGLOBIN A1c 6.6 %
[2020-11-12 11:47] LABS: ALBUMIN 3.3 GM/DL (3.2-5.2); ALT/SGPT 25 U/L (12-78); BILIRUBIN,TOTAL 0.6 MG/DL (0.2-1.0); BLOOD UREA NITROGEN 30 MG/DL (7-18); CALCIUM LEVEL 8.6 MG/DL (8.8-10.2); CARBON DIOXIDE LEVEL 29 MEQ/L (21-32); CHLORIDE LEVEL 111 MEQ/L (98-107); CHOLESTEROL LEVEL 139 MG/DL (<200); CHOLESTEROL RISK RATIO 3.861 (<5); GLOMERULAR FILTRATION RATE > 60.0 (>35); GLUCOSE, FASTING 130 MG/DL (70-100); HDL CHOLESTEROL 36 MG/DL (>40); LDL CHOLESTEROL 72 MG/DL (<100); NON-HDL-C 103 MG/DL; POTASSIUM SERUM 4.4 MEQ/L (3.5-5.1); SODIUM LEVEL 142 MEQ/L (136-145); THYROID STIMULATING HORMONE 0.705 uIU/ML (0.358-3.740); TOTAL PROTEIN 7.1 GM/DL (6.4-8.2); TRIGLYCERIDES LEVEL 157 MG/DL (<150)
== END ==
LOC: M PLALAB 08:39
PROVIDERS: ATTEND Nurse Practitioner Adult Health
DX: E78.00 Pure hypercholesterolemia, unspecified (principal); E11.9 Type 2 diabetes mellitus without complications; E03.9 Hypothyroidism, unspecified

== ENCOUNTER → 2021-01-04 | Outpatient (CLI) | payer MEDICARE, OTHER ==
[~2021-01-04] MED LIST changes: -KLOR10TA76 PO; +POTA-136 PO
== END ==
LOC: M LABSMTC 09:43
PROVIDERS: ATTEND Anesthesiology
DX: Z01.818 Encounter for other preprocedural examination (principal); Z11.52 Encounter for screening for COVID-19

== ENCOUNTER 2021-01-09 11:22 | Day surgery (SDC) | payer MEDICARE, OTHER ==
[~2021-01-09] VITALS: Ht 160 cm; Wt 87.9 kg
[~2021-01-09 11:22] MED LIST changes: +NS 1,000 ML IV ONE
--- OUTSIDE RECORDS SUMMARY | 2021-01-09 12:18 | CCD | Continuity of Care Document ---
Author Author Sid GOODSON F.N.P. Organization Unknown Address [address], [address] [place] [address] Phone [phone] Care Team Providers Care Developmental Mathematics Instructor Name Role Phone Omer Pollard MD [facility] [phone] Problems Description No Information Available Social History Type Date Description Comments Sex Unknown Tobacco Use Start: Unknown Never Smoked Cigarettes ETOH Use Denies alcohol use Sun Exposure moderate amount of sun exposure Sun Exposure Has never used tanning bed Sun Exposure Has never experienced blistering from sunburns Sun Exposure Does not use sunscreen Allergies, Adverse Reactions, Alerts Active Allergies Criticality Reaction | Severity Comments Date Contrast Dye Unable to assess criticality 03/01/2018 Medications Active Medications SIG Qnty Indications Ordering Provide r Date Trospium Chloride [facility] 09/12/2019 Aspirin 325mg Tablets Unknown Centrum Silver 50+Men 50+Men Tablets Unknown Furosemide 20mg Tablets 1 tablet by mouth daily Unknown Klor-Con 10 10Meq Tablets ER Unknown Nitrostat 0.4mg Tablets Sub Unknown Omeprazole 20mg Capsules DR Unknown Pravastatin Sodium 20mg Tablets Unknown Sertraline HCL 100mg Tablets Unknown Levothyroxine Sodium 112mcg Tablets Unknown Travatan Z 0.004% Solution Unknown Alfuzosin HCL ER 10mg Tablets ER 24HR Unknown Pramipexole Dihydrochloride Unknown Metamucil Unknown Fluticasone Propionate Nasal [place] 24- Hour Unknown Immunizations Description No Information Available Vital Signs Date Vital Result Comment 10/24/2020 10:25am BP Systolic 128 mmHg BP Diastolic 82 mmHg Weight 197.00 lb Respiratory Rate 17 /min 10/14/2020 11:07am Weight 197.00 lb Heart Rate 60 /min Results Test Acquired Date Facility Test Result H/L Range Note [facility] Path[facility] 10/24/2020 [facility] Icd9 Code ICD9 Code: L90.5 1 PDFReport SEE IMAGE [facility] Pathology 09/25/2020 [facility] Icd9 Code ICD9 Code: C44.6 <SEE NOTE> 2, 3 PDFReport SEE IMAGE L Upper Lip (3 Of 4) 09/09/2020 [facility] Icd9 Code ICD9 Code: D04.3 <SEE NOTE> 4, 5 PDFReport SEE IMAGE 1 ICD9 Code: L90.5 Protocol: excison Clinical Text: SCC Final Diagnosis: SCAR FROM PRIOR SURGICAL PROCEDURE. NO RESIDUAL TUMOR IDENTIFIED. Gross Text: Grossly, the specimen was fusiform in shape, measuring 22 x 10 mm. on the surface and 5 mm. deep. The sections were taken along the short axis at 6 levels after the undersurface was marked with a tissue stain. All of the tissue was submitted for processing. Microscopic Description: Skin with focal effacement of the rete ridges and horizontally arrayed fibrosis in the dermis. CPT: 07602*1 2 Excise with CO 10/24/20 3 ICD9 Code: C44.622 Protocol: shave Clinical Text: KA VS. SCC Final Diagnosis: INVASIVE SQUAMOUS CELL CARCINOMA, WELL DIFFERENTIATED. Gross Text: The specimen grossly was oval shaped, measuring 8 x 6 mm. on the surface and 1 mm. deep. It was divided into 2 sections on the long axis. All of the tissue was submitted for processing. Microscopic Description: Atypical keratinocytes extend from the epidermis into the dermis. CPT: 84987*[address] at next visit B. LN 2 at next visit C. Refer to Dr Arturo Perez LN2 at next visit letter awaiting signature LW 09/26/20 photo emailed, letter sent, awaiting appt LW 09/26/20 PER ANGIE, PT IS NOT YET SCHEDULED 10/03/2010/09 LW 10-10-[address] Morris's office. Let Angie know that just the upper lip BCC to be excised office made aware appt 11/05/20, pt is aware LW 10/29/20 5 ICD9 Code: D04.39 Protocol: shave Clinical Text: AK VS SCC IN SITU Final Diagnosis: SQUAMOUS CELL CARCINOMA IN SITU, EARLY EVOLVING LESION. Gross Text: The specimen grossly was oval shaped, measuring 6 x 5 mm. on the surface and 1 mm. deep. It was divided into 2 sections on the long axis. All of the tissue was submitted for processing. Microscopic Description: There are atypical keratinocytes throughout almost the entire thickness of the epidermis. CPT: 59625*4 Procedures Date Code Description Status 11/06/2020 01479 Office/Outpatient Established Mo d MDM 30-39 Min Completed 11/06/2020 26706 Destruction Of Lesion First Comp leted 10/24/2020 83240 Office/Outpatient Established Mo d MDM 30-39 Min Completed 10/24/2020 79175 Excise Malig Lesion 3.1-4CM Trun k/Arm/Leg Completed 10/14/2020 69139 Office/Outpatient Established Mo d MDM 30-39 Min Completed 10/14/2020 41635 I & D Abscess Simple Completed 10/14/2020 99833 Acne Surgery Completed 10/08/2020 24540 Office/Outpatient Established Mo d MDM 30-39 Min Completed 10/08/2020 79096 Destruction Malig Le marah 1.1-2CM Face/Ear/Eyelid/Nose/Lip/Muc Mem Completed 10/08/2020 21331 Destruction Malig Le marah .6-1CM Face/Ear/Eyelid/Nose/Lip/Muc Mem Completed 09/25/2020 81809 Office/Outpatient Established Mo d MDM 30-39 Min Completed 09/25/2020 31676 Shave Biopsy Of Skin, Single Les ion Completed 09/09/2020 25477 Office/Outpatient Established Mo d MDM 30-39 Min Completed 09/09/2020 35815 Each Separate/Additional Lesion Completed 09/09/2020 45834 Shave Biopsy Of Skin, Single Les ion Completed Medical Devices Description No Information Available Encounters Type Date Location Provider Dx Diagnosis Office Visit 11/06/2020 11:15a Main Office Tobin Miles.N.P. L57.0 Actinic keratosis C44.622 Squamous cell carcinoma skin / right upper limb, inc shoulder R20.8 Other disturbances of skin s ensation Z48.02 Encounter for removal of sut ures Office Visit 10/24/2020 10:30a Main Office Jaylin Arnold'cecil, F.N.P. C44.622 Squamous cell carcinoma skin/ right upper limb, inc shoulder L57.0 Actinic keratosis Office Visit 10/14/2020 11:00a Main Office Donal Yamileth, KENIA-BC L57. 0 Actinic keratosis L81.4 Other melanin hyperpigmentat ion D18.01 Hemangioma of skin and subcu taneous tissue L82.1 Other seborrheic keratosis L72.3 Sebaceous cyst L70.0 Acne vulgaris C44.01 Basal cell carcinoma of skin of lip C44.622 Squamous cell carcinoma skin / right upper limb, inc shoulder Z85.828 Personal history of other ma lignant neoplasm of skin Z87.2 Personal history of diseases of the skin, subcu Z08 Encntr for follow-up exam af ter trtmt for malignant neoplasm Office Visit 10/08/2020 11:45a Main Office Jaylin Arnold'cecil, F.N.P. D48.5 Neoplasm of uncertain behavior of skin L57.0 Actinic keratosis R20.8 Other disturbances of skin s ensation D04.39 Carcinoma in situ of skin of other parts of face Office Visit 09/25/2020 4:45p Main Office Jaylin Arnold'cecil, F.N.P. D48.5 Neoplasm of uncertain behavior of skin Office Visit 09/09/2020 9:00a Main Office Liana Borjas, KENIA-C D48.5 Neoplasm of uncertain behavior of skin R20.8 Other disturbances of skin s ensation Assessments Date Code Description Provider 11/06/2020 L57.0 Actinic keratosis Jaylin randle, F.N.P. 11/06/2020 C44.622 Squamous cell carcin guerrero of skin of right upper limb, including shoulder Jaylin Arnold'cecil, F.N.P. 11/06/2020 R20.8 Other disturbances of skin sensa tion Jaylin Arnold'cecil, F.N.P. 11/06/2020 Z48.02 Encounter for removal of sutures Jaylin Arnold'cecil, F.N.P. 10/24/2020 C44.622 Squamous cell carcin guerrero of skin of right upper limb, including shoulder Jaylin Arnold'cecil, F.N.P. 10/24/2020 L57.0 Actinic keratosis Jaylin Arnold'br ien, F.N.P. 10/14/2020 L57.0 Actinic keratosis [facility] 10/14/2020 L81.4 Other melanin hyperpigmentation [facility] 10/14/2020 D18.01 Hemangioma of skin and subcutane ous tissue [facility] 10/14/2020 L82.1 Other seborrheic keratosis [facility] 10/14/2020 L72.3 Sebaceous cyst [facility] 10/14/2020 L70.0 Acne vulgaris [facility] 10/14/2020 C44.01 Basal cell carcinoma of skin of lip [facility] 10/14/2020 C44.622 Squamous cell carcin guerrero of skin of right upper limb, including shoulder [facility] 10/14/2020 Z85.828 Personal history of other malign ant neoplasm of skin [facility] 10/14/2020 Z87.2 Personal history of diseases of the skin and subcutaneous tissue [facility] 10/14/2020 Z08 Encounter for follow -up examination after completed treatment for malignant neoplasm [facility] 10/08/2020 D48.5 Neoplasm of uncertain behavior o f skin Jayiln Arnold'cecil, F.N.P. 10/08/2020 L57.0 Actinic keratosis Jaylin Arnold'br ien, F.N.P. 10/08/2020 R20.8 Other disturbances of skin sensa tion Jaylin Arnold'cecil, F.N.P. 10/08/2020 D04.39 Carcinoma in situ of skin of oth er parts of face Jaylin Goodson, F.N.P. 09/25/2020 D48.5 Neoplasm of uncertain behavior o f skin Drew MilesN.P. 09/25/2020 C44.622 Squamous cell carcin guerrero of skin of right upper limb, including shoulder TATO Gutierrez 09/09/2020 D48.5 Neoplasm of uncertain behavior o f skin CATE Rodriguez 09/09/2020 R20.8 Other disturbances of skin sensa tion CATE Rodriguez 09/09/2020 D04.30 Carcinoma in situ of skin of uns pecified part of face TATO Gutierrez 09/09/2020 C44.01 Basal cell carcinoma of skin of lip TATO Gutierrez Plan of Treatment Future Appointment(s):* 01/02/2021 1:00 pm - CATE Sheridan at Main Office * 04/14/2021 12:45 pm - Jaylin Goodson, F.N.P. at Main Office 11/06/2020 - Drew MilesN.P.* L57.0 Actinic keratosis* Comments:* Discussed actinic keratoses are precancerous proliferations that occur within sun damaged skin. If untreated, a small subset of AK's can develop into SCC's. Discussed treatment options to include LN2, topicals, Amulez with red light and no treatmentDiscussed LN2 at length to include that the areas treated will get red, bubble up/blister, maybe get a little weepy, form a scab then heal. Discussed S/E to include scarring, risk of hypopigmentation, bleeding, infectionInformed consent signedLN2 to 1 AK Wound care instructions givenSunscreen use and sun protection discussed Contact office if AK's fail to resolve despite treatment Already scheduled for red light in the fall for scalp and face.Instructed to call with any problems * C44.622 Squamous cell carcinoma of skin of right upper limb, including shoulder* Comments:* Sutures removed today.Healing well.Continue to monitor for any recurrence.Call with problems. * R20.8 Other disturbances of skin sensation* Comments:* See above. * Z48.02 Encounter for removal of sutures* Comments:* See above. * Follow up:* Has appointment. Functional Status Description No Information Available Mental Status Description No Information Available Referrals Description No Information Available"
--- OUTSIDE RECORDS SUMMARY | 2021-01-09 12:18 | CCD | Continuity of Care Document ---
Author Author Sid OLIVER MD Organization Unknown Address [address] [place] [address], [place] [address] Phone [phone] Care Team Providers Care Estate Attorney Name Role Phone Omer Pollard MD [facility] [phone] Ramakrishna Martinez DO [facility] [phone] LaviniaTiana carl MD [facility] [phone] Nathan Borjas MD [facility] [phone] Problems Active Problems Provider Date Coronary arteriosclerosis KENIA Ramirez-FAISAL Onset: 05/25/2011 Old myocardial infarction KENIA Ramirez-FAISAL Onset: 05/25/2011 Patient post percutaneous transluminal coronary angiop lasty TATO Ramirez Onset: 05/25/2011 Chronic diastolic heart failure KENIA Ramirez-FAISAL Onset: 05/25/2011 Benign hypertensive heart disease with congestive card iac failure TATO Ramirez Onset: 05/25/2011 Aortic valve disorder TATO Ramirez Onset: 07/2011 Pure hypercholesterolemia KENIA Ramirez-FAISAL Onset: 05/20/2012 Obesity KENIA Ramirez-FAISAL Onset: 05/24 Obstructive sleep apnea syndrome Pari Nguyen PA-C Onset: 04/12/2014 Sinus node dysfunction Pari Nguyen PA-C Onset: 5 Mitral leaflet abnormality aPri Nguyen PA-C Onset: 04/29 Mitral valve disorder Pari Nguyen PA-C Onset: 12/12/2015 Dietary management surveillance Pari Nguyen PA-C Onset: 12/17/2016 Other hypotension Pari De La Cruz ROLANDO Nguyen Onset: 12/17/2016 Social History Type Date Description Comments Sex Unknown Tobacco Use Start: Unknown Never Smoked Cigarettes Tobacco Use Start: Unknown End: Unknown Former Cigar Smoker 1-2 cigars per day for 4-5 years, quit 1989 ETOH Use Does not consume alcohol Tobacco Use Start: Unknown Patient has never smoked Smoking Status Reviewed: 09/09/20 Patient has never smoked Exercise Type/Frequency Does housework daily Exercise Type/Frequency Does yardwork twice a we ek Exercise Limitations Back Pain Allergies, Adverse Reactions, Alerts Active Allergies Criticality Reaction | Severity Comments Date Beta Blockers Unable to assess criticality marked rolly ycardia 09/22/2007 IVP Dye Unable to assess criticality rash 11/18/2011 Timolol Unable to assess criticality bradycardia 10/02/2013 Medications Active Medications SIG Qnty Indications Ordering Provide r Date Trospium Chloride 20mg Tablets 1 by mouth daily at bedtime on empty stomach Unknown 09/08/2020 Meloxicam 7.5mg Tablets 1 by mouth every day as needed Unknown 03/07/2020 Pramipexole Dihydrochloride ER 2.25mg Tablets ER 24HR 1 po qd Unknown 11/07/2019 Synthroid 125mcg Tablets 2 by mouth qd Unknown 09/12/[address] 1 by mouth every day Unknown 03/29/2019 Nitroglycerin 0.4mg Tablets Sub 1 tab sl every 5 min times 3 doses as needed chest disc 25tabs I25.10 J jose Mendez MD 06/16/2017 I25.118 Alfuzosin HCL ER 10mg Tablets ER 2 4HR 1 by mouth every day Unknown 06/11/2016 Fluticasone Propionate 50mcg/Act Suspension 1 spray each nostril daily as needed Omer Peraza MD 10/25/2014 Travatan Z 0.004% Solution one drop both eyes at bedtime Tiana Kate MD 10/03/19 14 Pravastatin Sodium 20mg Tablets 1 po qhs Omer Pollard MD 06/06/2013 Furosemide 20mg Tablets 1 by mouth every day as needed only 30tabs Cody Mendez MD 06/06/2013 Centrum Silver Tablets 1 po qd Omer Pollard MD 12/09/2009 Potassium Chloride CR 10Meq Capsul es ER 1 po daily Unknown 07/01/2009 Zoloft 100mg Tablets 1 po haresh ly Omer Pollard MD 10/05/[address] 1 PO Daily Omer Pollard MD 09/22/2007 Metamucil 0.52gm Capsules as directed Omer Pollard MD 05/03/2006 Immunizations Description No Information Available Vital Signs Date Vital Result Comment 09/09/2020 11:35am Weight 202.00 lb Height 65 inches 5'5" BMI (Body Mass Index) 33.6 kg/m2 Heart Rate 56 /min Regular Respiratory Rate 16 /min BP Systolic Lying Down 126 mmHg Ra, large uff BP Diastolic Lying Down 72 mmHg Ra, large uff BP Systolic Right Arm 122 mmHg sitting BP Diastolic Right Arm 68 mmHg sitting BP Systolic Standing 116 mmHg Ra BP Diastolic Standing 64 mmHg Ra 03/08/2020 10:59am Weight 206.00 lb Home Weight 199lb home weight Height 65 inches 5'5" BMI (Body Mass Index) 34.3 kg/m2 Heart Rate 56 /min Regular Respiratory Rate 16 /min BP Systolic Right Arm 122 mmHg sitting, large cuf f BP Diastolic Right Arm 68 mmHg sitting, large cu ff BP Systolic Left Arm 120 mmHg sitting BP Diastolic Left Arm 68 mmHg sitting BP Systolic Standing 112 mmHg LA BP Diastolic Standing 64 mmHg LA Results Test Acquired Date Facility Test Result H/L Range Note Complete Blood Count 09/13/2020 [facility] enter [phone] White Blood Count 5.1 10 Normal 4.0-10.0 Red Blood Count 3.99 10 Low 4.30-6.10 Hemoglobin 12.0 g/dL Low 13.5-17.5 Hematocrit 37.8 % Low 42.0-52.0 Mean Corpuscular Volume 94.7 fl Normal 80.0-96.0 Mean Corpuscular Hemoglobin 30.1 pg Normal 27.0-33.0 Mean Corpuscular HGB Conc 31.7 g/dL Low 32.0-36.5 Red Cell Distribution Width 12.0 % Normal 11.5-14.5 Platelet Count, Automated 135 10 Low 150-450 Nucleated Red Blood Cell % 0.0 % Normal 0-0 Comprehensive Metabolic Profil 09/13/2020 [facility] [phone] Glucose, Fasting 106 mg/dL High 70-100 Blood Urea Nitrogen 23 mg/dL High 7-18 Creatinine For GFR 1.00 mg/dL Normal 0.70-1.30 Glomerular Filtration Rate > 60.0 Normal >35 1 Sodium Level 140 mEq/L Normal 136-145 Potassium Serum 4.2 mEq/L Normal 3.5-5.1 Chloride Level 109 mEq/L High 98-107 Carbon Dioxide Level 27 mEq/L Normal 21-32 Anion Gap 4 mEq/L Low 8-16 Calcium Level 8.5 mg/dL Low 8.8-10.2 Ast/Sgot 22 U/L Normal 7-37 Alt/SGPT 23 U/L Normal 12-78 Alkaline Phosphatase 82 U/L Normal 45-117 Bilirubin,Total 0.7 mg/dL Normal 0.2-1.0 Total Protein 6.9 GM/DL Normal 6.4-8.2 Albumin 3.6 GM/DL Normal 3.2-5.2 Albumin/Globulin Ratio 1.1 Normal Lipid Panel 09/13/2020 [facility] nter [phone] Triglycerides Level 71 mg/dL Normal <150 Cholesterol Level 133 mg/dL Normal <200 HDL Cholesterol 39 mg/dL Low >40 LDL Cholesterol 80 mg/dL Normal <100 Non-HDL-C 94 mg/dL Normal Cholesterol Risk Ratio 3.410 Normal <5 1 Units are mL/min/1.73 m2 Chronic Kidney Disease Staging per NKF: Stage I & II GFR >=60 Normal to Mildly Decreased Stage III GFR 30-59 Moderately Decreased Stage IV GFR 15-29 Severely Decreased Stage V GFR <15 Very Little GFR Left ESRD GFR <15 on ROBOTIC MAINTENANCE TECHNICIAN Procedures Date Code Description Status 10/04/2020 22784 Chronic Care MGMT 20 Mins Clinical Staff Time Per Calendar Month Completed 09/09/2020 96831 Office/Outpatient Established Mo d MDM 30-39 Min Completed 09/09/2020 73183 ECG 12-Lead Completed 08/05/2020 26258 Chronic Care MGMT 20 Mins Clinical Staff Time Per Calendar Month Completed 08/05/2020 43789 Chronic Care Management Services Ea Addl 20 Min Completed 06/27/2020 20019 Chronic Care MGMT 20 Mins Clinical Staff Time Per Calendar Month Completed 06/27/2020 57082 Chronic Care Management Services Ea Addl 20 Min Completed Medical Devices Description No Information Available Encounters Type Date Location Provider Dx Diagnosis Office Visit 10/04/2020 5:15p Main Office Ramakrishna Oliver MD I50.3 2 Chronic diastolic (congestive) heart failure I25.10 Athscl heart disease of [place] coronary artery w/o ang pctrs I11.0 Hypertensive heart disease w ith heart failure Office Visit 09/09/2020 11:30a Main Office Pari Nguyen PA-C I25.1 0 Athscl heart disease of [place] coronary artery w/o ang pctrs I25.2 Old myocardial infarction Z95.5 Presence of coronary angiopl asty implant and graft I50.32 Chronic diastolic (congestiv e) heart failure I11.0 Hypertensive heart disease w ith heart failure I95.89 Other hypotension I49.5 Sick sinus syndrome I35.8 Other nonrheumatic aortic va lve disorders I34.8 Other nonrheumatic mitral va lve disorders E78.00 Pure hypercholesterolemia, u nspecified G47.33 Obstructive sleep apnea (kiersten lt) (pediatric) Z71.3 Dietary counseling and surve illance Office Visit 08/05/2020 10:32a Main Office Ramakrishna Oliver MD E78.0 0 Pure hypercholesterolemia, unspecified I49.5 Sick sinus syndrome I50.32 Chronic diastolic (congestiv e) heart failure Office Visit 06/27/2020 3:43p Main Office Ramakrishna Oliver MD E78.0 0 Pure hypercholesterolemia, unspecified I50.32 Chronic diastolic (congestiv e) heart failure Assessments Date Code Description Provider 10/04/2020 I50.32 Chronic diastolic (congestive) h eart failure Ramakrishna Oliver MD 10/04/2020 I25.10 Atherosclerotic heart disease of [place] coronary artery with Ramakrishna Oliver MD 10/04/2020 I11.0 Hypertensive heart disease with heart failure Ramakrishna Oliver MD 09/09/2020 I25.10 Atherosclerotic heart disease of [place] coronary artery with Pari Nguyen PA-C 09/09/2020 I25.2 Old myocardial infarction Pari Nguyen PA-C 09/09/2020 Z95.5 Presence of coronary angioplasty implant and graft Pari Nguyen PA-C 09/09/2020 I50.32 Chronic diastolic (congestive) h eart failure Pari Nguyen, PA-C 09/09/2020 I11.0 Hypertensive heart disease with heart failure Pari Jono Nguyen PA-C 09/09/2020 I95.89 Other hypotension Pari Jono Nguyen PA-C 09/09/2020 I49.5 Sick sinus syndrome Pari De La Cruz Domoniquedaja jelani PA-C 09/09/2020 I35.8 Other nonrheumatic aortic valve disorders Pari Nguyen PA-C 09/09/2020 I34.8 Other nonrheumatic mitral valve disorders Pari De La Cruz Patrick, PA-C 09/09/2020 E78.00 Pure hypercholesterolemia, unspe cified Pari De La Cruz Patrick, PA-C 09/09/2020 G47.33 Obstructive sleep apnea (adult) (pediatric) Pari Nguyen PA-C 09/09/2020 Z71.3 Dietary counseling and surveilla nce KWABENA Vigil-C 08/05/2020 E78.00 Pure hypercholesterolemia, unspe cified Ramakrishna Oliver MD 08/05/2020 I49.5 Sick sinus syndrome Ramakrishna erazo MD 08/05/2020 I50.32 Chronic diastolic (congestive) h eart failure Ramakrishna Oliver MD 06/27/2020 E78.00 Pure hypercholesterolemia, unspe cified Ramakrishna Oliver MD 06/27/2020 I50.32 Chronic diastolic (congestive) h eart failure Ramakrishna Oliver MD Plan of Treatment Future Appointment(s):* 03/11/2021 1:30 pm - Pari Nguyen PA-C at Main Office 09/09/2020 - Pari Nguyen PA-C* I25.10 Atherosclerotic heart disease of [place] coronary artery with * I25.2 Old myocardial infarction * Z95.5 Presence of coronary angioplasty implant and graft * I50.32 Chronic diastolic (congestive) heart failure* Recommendations:* Follow a 2 grams sodium diet and 50 ounces fluid restriction per 24 hour and do daily weights. Call the office for weight gain of 3 lbs or more. * I11.0 Hypertensive heart disease with heart failure * I95.89 Other hypotension * I49.5 Sick sinus syndrome * I35.8 Other nonrheumatic aortic valve disorders * I34.8 Other nonrheumatic mitral valve disorders * E78.00 Pure hypercholesterolemia, unspecified * G47.33 Obstructive sleep apnea (adult) (pediatric) * Z71.3 Dietary counseling and surveillance* Recommendations:* Follow a low fat/low cholesterol diet and do as much aerobic exercise as you can tolerate. * All * Follow up:* 6 month follow up. Functional Status Functional Condition Comment Date Status Independent with all ADL's Activ e Mental Status Description No Information Available Referrals Description No Information Available
--- OUTSIDE RECORDS SUMMARY | 2021-01-09 12:20 | CCD | Continuity of Care Document ---
Author Author Sid GOODSON F.N.P. Organization Unknown Address [address], [address] [place] [address] Phone [phone] Care Team Providers Care Type Casting Machine Operator Name Role Phone Omer Pollard MD [facility] [phone] Problems Description No Information Available Social History Type Date Description Comments Sex Unknown Tobacco Use Start: Unknown Never Smoked Cigarettes ETOH Use Denies alcohol use Sun Exposure moderate amount of sun exposure Sun Exposure Has never used tanning bed Sun Exposure Has never experienced blistering from sunburns Sun Exposure Does not use sunscreen Allergies, Adverse Reactions, Alerts Active Allergies Reaction Severity Comments Date Contrast Dye 03/01/2018 Medications Active Medications SIG Qnty Indications Ordering Provide r Date Trospium Chloride KENIA Gutierrez [facility] 09/12/2019 Aspirin 325mg Tablets Unknown Centrum Silver [...] Dihydrochloride Unknown Metamucil Unknown Fluticasone Propionate Nasal Bailey 24- Hour Unknown Immunizations Description No Information Available Vital Signs Date Vital Result Comment 10/14/2020 11:07am Weight 197.00 lb Heart Rate 60 /min 10/08/2020 11:45am Weight 197.00 lb Respiratory Rate 16 /min Height 64 inches 5'4" BMI (Body Mass Index) 33.8 kg/m2 Results Test Acquired Date Facility Test Result H/L Range Note [facility] 09/25/2020 [facility] Icd9 Code ICD9 Code: C44.6 <SEE NOTE> 1, 2 [facility]FReport SEE IMAGE L Upper Lip (3 Of 4) 09/09/2020 [employer] Icd9 Code ICD9 Code: D04.3 <SEE NOTE> 3, 4 PDFReport SEE IMAGE 1 Excise with CO 10/24/20 2 ICD9 Code: C44.622 Protocol: keyur Clinical Text: KA VS. SCC Final Diagnosis: INVASIVE SQUAMOUS CELL CARCINOMA, WELL DIFFERENTIATED. Gross Text: The specimen grossly was oval shaped, measuring 8 x 6 mm. on the surface and 1 mm. deep. It was divided into 2 sections on the long axis. All of the tissue was submitted for processing. Microscopic Description: Atypical keratinocytes extend from the epidermis into the dermis. CPT: 62912*[address] at next visit B. LN 2 at next visit C. Refer to Dr Arturo Perez LN2 at next visit letter awaiting signature LW 09/26/20 photo emailed, letter sent, awaiting appt LW 09/26/20 PER ANGIE, PT IS NOT YET SCHEDULED 10/03/20 LW 10/09 10-10-[address] Morris's office. Let Angie know that just the upper lip BCC to be excised 4 ICD9 Code: D04.39 Protocol: keyur Clinical Text: AK VS SCC IN SITU [...] the entire thickness of the epidermis. CPT: 44914*4 Procedures Date Code Description Status 10/14/2020 50813 Office/Outpatient Established Mo d MDM 30-39 Min Completed 10/14/2020 59525 I & D Abscess Simple Completed 10/14/2020 23034 Acne Surgery Completed 10/08/2020 00748 Destruction Laura Rodriguez sion 1.1-2CM Face/Ear/Eyelid/Nose/Lip/Muc Mem Completed 10/08/2020 21186 Destruction Laura Rodriguez marah .6-1CM Face/Ear/Eyelid/Nose/Lip/Muc Mem Completed 09/25/2020 83039 Office/Outpatient Established Mo d MDM 30-39 Min Completed 09/25/2020 78534 Shave Biopsy Of Skin, Single Les ion Completed 09/09/2020 40556 Office/Outpatient Established Mo d MDM 30-39 Min Completed 09/09/2020 80610 Each Separate/Additional Lesion Completed 09/09/2020 23761 Shave Biopsy Of Skin, Single Les ion Completed Medical Devices Description No Information Available Encounters Type Date Location Provider Dx Diagnosis Office Visit 10/14/2020 11:00a Main Office TATO Gutierrez L57. 0 Actinic keratosis L81.4 Other melanin [...] ter trtmt for malignant neoplasm Office Visit 09/25/2020 4:45p Main Office Jaylin Goodson, F.N.PGlenda D48.5 Neoplasm of uncertain behavior of skin Office Visit 09/09/2020 9:00a Main Office CATE Rodriguez D48.5 Neoplasm of uncertain behavior of skin R20.8 Other disturbances of skin s ensation Assessments Date Code Description Provider 10/14/2020 L57.0 Actinic keratosis TATO Gutierrez 10/14/2020 L81.4 Other melanin hyperpigmentation TATO Gutierrez 10/14/2020 D18.01 Hemangioma of skin and subcutane ous tissue TATO Gutierrez 10/14/2020 L82.1 Other seborrheic keratosis Donal Carson [facility] 10/14/2020 L72.3 Sebaceous cyst Donal Carson [facility] 10/14/2020 L70.0 Acne vulgaris Tobin Gutierrez [facility] 10/14/2020 C44.01 [facility]al cell carcinoma [facility]2020 C44.622 Squamous cell carcin guerrero of skin of right upper limb, including shoulder Donal Carson [facility] 10/14/2020 Z85.828 Personal history of other malign ant neoplasm of skin Donal [facility] 10/14/2020 Z87.2 Personal history of diseases of the skin and subcutaneous tissue [facility]/14[facility]2020 Z08 Encounter for follow -up examination after completed treatment for malignant neoplasm [facility]/08/2020 D48.5 Neoplasm of uncertain behavior o f skin Jaylin O'cecil, F.N.P. 10/08/2020 L57.0 Actinic keratosis Jaylin O'susannah joynern, F.N.P. 10/08/2020 R20.8 Other disturbances of skin sensa tion Jaylin Arnold'cecil, F.N.P. 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 09/25/2020 D48.5 Neoplasm of uncertain behavior o f skin Jaylin O'cecil, F.N.P. 09/25/2020 C44.622 Squamous cell carcin guerrero of skin of right upper limb, including shoulder [facility] D48.5 Neoplasm of uncertain behavior o f skin KAMERON RodriguezC 09/09/2020 R20.8 Other disturbances of skin sensa tion KAMERON RodriguezC 09/09/2020 D04.30 Carcinoma in situ of skin of uns pecified part of face [facility] 09/09/2020 C44.01 Basal cell carcinoma of skin of lip Donal Carson [facility] Plan of Treatment Future Appointment(s):* 04/14/2021 12:45 pm - Drew MilesNGlendaPGlenda at Main Office * 10/24/2020 10:30 am - Sumit Miles at Main Office 10/14/2020 [facility] L57.0 Actinic keratosis* Comments:* Will treat in the fall with Red Light therapy. Will request authorization through insurance company to have treatment. Will call to schedule appointment once we have received the approval from his insurance company. * L81.4 Other melanin hyperpigmentation* Comments:* Solar lentigines - ReassuranceDiscussed that solar lentignes appear from the sun that was received years agoSunscreen use and sun protection discussed. * D18.01 Hemangioma of skin and subcutaneous tissue* Comments:* Reassurance. * L82.1 Other seborrheic keratosis* Comments:* Reassurance. Sun protection and sunscreen use discussed. Literature given on monthly self-skin evaluations. * L72.3 Sebaceous cyst* Comments:* I&D today of 2 cystsPaul tolerated procedure wellCall with problems * L70.0 Acne vulgaris* Comments:* Removed 5 open comedones today. Sid tolerated procedure well. Call with problems. * C44.01 Basal cell carcinoma of skin of lip* Comments:* Awaiting appointment with Dr. Morris. * C44.622 Squamous cell carcinoma of skin of right upper limb, including shoulder* Comments:* Scheduled for excision with Karrie Goodson on 10/24/2020. * Z85.828 Personal history of other malignant neoplasm of skin* Comments:* Continue to monitor for reoccurrence of SCC/KA and BCC. * Z87.2 Personal history of diseases of the skin and subcutaneous tissue* Comments:* Continue to monitor for recurrence SCC in situ's. * Z08 Encounter for follow-up examination after completed treatment for malignant neoplasm* Comments:* See above * Follow up:* 6 months/PRN - FSC w/ CO Functional Status Description No Information Available Mental Status Description No Information Available Referrals Description No Information Available
[2021-01-09] MEDS ORDERED: fentaNYL 100 MCG/2 ML INJECTION (J3010) As Ordered ONE (12:54)
[2021-01-09] MEDS ORDERED: LIDOCAINE 2% 100MG/5ML SDV (FOR ANES.) As Ordered ONE (13:06)
[2021-01-09] MEDS ORDERED: propofoL 200 MG/20 ML VIAL As Ordered ONE (13:06)
[2021-01-09] MEDS ORDERED: ePHEDrine SULFATE 25 MG/5 ML(5MG/ML) SYRINGE As Ordered ONE (13:14)
[2021-01-09 13:45] VITALS: BP 137/69
--- NOTE | 2021-01-09 14:02 | ROOR ---
Patient Name: Sid Malik Procedure Date: 01/09/2021 12:54 PM Date of : 1940 Age: 80 Room: [facility] Gender: Male Note Status: Finalized Procedure: Colonoscopy Indications: High risk colon cancer surveillance: Personal history of rectosigmoid cancer, Last colonoscopy: June 2016 Providers: Joao Gatica MD Referring MD: Omer Pollard MD Requesting Provider: Medicines: Monitored Anesthesia Care Complications: No immediate complications. Procedure: Pre-Anesthesia Assessment: - Prior to the procedure, a History and Physical was performed, and patient medications and allergies were reviewed. The patient is competent. The risks and benefits of the procedure and the sedation options and risks were discussed with the patient. All questions were answered and informed consent was obtained. Patient identification and proposed procedure were verified by the physician, the nurse and the campus monitor in the procedure room. Mental Status Examination: alert and oriented. Prophylactic Antibiotics: The patient does not require prophylactic antibiotics. Prior Anticoagulants: The patient has taken no previous anticoagulant or antiplatelet agents. ASA Grade Assessment: III - A patient with severe systemic disease. After reviewing the risks and benefits, the patient was deemed in satisfactory condition to undergo the procedure. The anesthesia plan was to use monitored anesthesia care (MAC). Immediately prior to administration of medications, the patient was re-assessed for adequacy to receive sedatives. The heart rate, respiratory rate, oxygen saturations, blood pressure, adequacy of pulmonary ventilation, and response to care were monitored throughout the procedure. The physical status of the patient was re-assessed after the procedure. The Colonoscope was introduced through the anus and advanced to the cecum, identified by appendiceal orifice and ileocecal valve. The colonoscopy was performed without difficulty. The patient tolerated the procedure well. The quality of the bowel preparation was good. Findings: The perianal and digital rectal examinations were normal. There was evidence of a prior end-to-end colo-rectal anastomosis at 10 cm proximal to the anus. This was patent and was characterized by healthy appearing mucosa. The anastomosis was traversed. Many medium-mouthed diverticula were found in the sigmoid colon and descending colon. Impression: - Patent end-to-end colo-rectal anastomosis, characterized by healthy appearing mucosa. - Diverticulosis in the sigmoid colon and in the descending colon. - No specimens collected. Recommendation: - Discharge patient to home. - Resume previous diet. - Continue present medications. - Repeat colonoscopy in 3 - 5 years for surveillance. Procedure Code(s): --- Professional --- 09988, Colonoscopy, flexible; diagnostic, including collection of specimen(s) by brushing or washing, when performed (separate procedure) Diagnosis Code(s): --- Professional --- Z85.048, Personal history of other malignant neoplasm of rectum, rectosigmoid junction, and anus Z98.0, Intestinal bypass and anastomosis status K57.30, Diverticulosis of large intestine without perforation or abscess without bleeding CPT copyright 2019 [employer]. All rights reserved. The codes documented in this report are preliminary and upon vegetable sorter review may be revised to meet current compliance requirements. Joao Gatica MD Joao Gatica MD 01/09/2021 2:02:29 PM Electronically signed by Joao Gatica MD Number of Addenda: 0 Note Initiated On: 01/09/2021 12:54 PM Estimated Blood Loss: Estimated blood loss: none.
== END 2021-01-09 13:50 | disposition home or self-care (01) ==
LOC: M OPP 11:22
PROVIDERS: ATTEND Surgery
DX: Z12.11 Encounter for screening for malignant neoplasm of colon (principal); Z85.048 Personal history of other malignant neoplasm of rectum, rectosigmoid junction, and anus; Z98.0 Intestinal bypass and anastomosis status; K57.30 Diverticulosis of large intestine without perforation or abscess without bleeding; Z79.2 Long term (current) use of antibiotics; Z79.899 Other long term (current) drug therapy; Z88.8 Allergy status to other drugs, medicaments and biological substances; Z91.030 Bee allergy status; Z91.041 Radiographic dye allergy status
CPT/HCPCS: G0105; J3010

== ENCOUNTER → 2021-02-24 | Outpatient (CLI) | payer MEDICARE, OTHER ==
[~2021-02-24] MED LIST changes: -NS 1,000 ML IV ONE
--- NOTE | 2021-02-24 12:14 | REP ---
INDICATION: CHRONIC DIASTOLIC (CONGESTIVE) HEART FAILURE COMPARISON: 11/02/2019. TECHNIQUE: PA/Lateral FINDINGS: Lungs: There are mild bibasilar fibro atelectatic changes without evidence of acute infiltrate. Heart: Mildly enlarged. Mediastinum: Mediastinal silhouette unremarkable. Pleural angles: Unremarkable.. Bones and soft tissues: There are mild degenerative changes of the spine without compression deformity. IMPRESSION: No acute pulmonary disease. Stable chronic findings as above. <Electronically signed by Eliot Kwong > 02/24/21 4750
[2021-02-24 13:36] LABS: HEMATOCRIT 37.6 % (42.0-52.0); HEMOGLOBIN 12.1 g/dl (13.5-17.5); MEAN CORPUSCULAR HEMOGLOBIN 30.6 pg (27.0-33.0); MEAN CORPUSCULAR HGB CONC 32.2 g/dl (32.0-36.5); MEAN CORPUSCULAR VOLUME 94.9 fl (80.0-96.0); PLATELET COUNT, AUTOMATED 140 10^3/uL (150-450); RED BLOOD COUNT 3.96 10^6/uL (4.30-6.10); WHITE BLOOD COUNT 5.5 10^3/uL (4.0-10.0)
[2021-02-24 14:00] LABS: BLOOD UREA NITROGEN 37 MG/DL (7-18); CALCIUM LEVEL 9.2 MG/DL (8.8-10.2); CARBON DIOXIDE LEVEL 32 MEQ/L (21-32); CHLORIDE LEVEL 109 MEQ/L (98-107); CREATININE FOR GFR 1.23 MG/DL (0.70-1.30); GLOMERULAR FILTRATION RATE > 60.0 (>35); GLUCOSE, FASTING 117 MG/DL (70-100); NT-PRO BNP 703 PG/ML (<450); POTASSIUM SERUM 4.6 MEQ/L (3.5-5.1); SODIUM LEVEL 146 MEQ/L (136-145)
== END ==
LOC: M RAD 11:50
PROVIDERS: ATTEND Physician Assistant
DX: I50.32 Chronic diastolic (congestive) heart failure (principal)

== ENCOUNTER → 2021-03-24 | Outpatient (CLI) | payer MEDICARE, OTHER ==
[2021-03-24 12:43] LABS: BLOOD UREA NITROGEN 31 MG/DL (7-18); CALCIUM LEVEL 8.7 MG/DL (8.8-10.2); CARBON DIOXIDE LEVEL 28 MEQ/L (21-32); CHLORIDE LEVEL 111 MEQ/L (98-107); CREATININE FOR GFR 1.04 MG/DL (0.70-1.30); GLOMERULAR FILTRATION RATE > 60.0 (>35); GLUCOSE, FASTING 128 MG/DL (70-100); MAGNESIUM LEVEL 2.1 MG/DL (1.8-2.4); NT-PRO BNP 499 PG/ML (<450); POTASSIUM SERUM 4.3 MEQ/L (3.5-5.1); SODIUM LEVEL 144 MEQ/L (136-145)
== END ==
LOC: M LAB 10:59
PROVIDERS: ATTEND Internal Medicine
DX: I50.31 Acute diastolic (congestive) heart failure (principal); E83.42 Hypomagnesemia

== ENCOUNTER → 2021-05-12 | Outpatient (CLI) | payer MEDICARE, OTHER ==
[2021-05-12 11:10] LABS: BASO % 0.5 % (0.0-1.0); EOS # 0.4 10^3/uL (0.0-0.5); EOS % 6.4 % (0.0-3.0); HEMATOCRIT 38.9 % (42.0-52.0); HEMOGLOBIN 12.7 g/dl (13.5-17.5); LYMPH # 1.8 10^3/uL (1.5-5.0); LYMPH % 27.9 % (24.0-44.0); MEAN CORPUSCULAR HEMOGLOBIN 30.2 pg (27.0-33.0); MEAN CORPUSCULAR HGB CONC 32.6 g/dl (32.0-36.5); MEAN CORPUSCULAR VOLUME 92.6 fl (80.0-96.0); MONO # 0.4 10^3/uL (0.0-0.8); MONO % 6.4 % (2.0-8.0); NEUTROPHILS # 3.7 10^3/uL (1.5-8.5); NEUTROPHILS % 58.5 % (36.0-66.0); PLATELET COUNT, AUTOMATED 144 10^3/uL (150-450); WHITE BLOOD COUNT 6.3 10^3/uL (4.0-10.0)
[2021-05-12 11:39] LABS: ALBUMIN 3.7 GM/DL (3.2-5.2); ALT/SGPT 25 U/L (12-78); BILIRUBIN,TOTAL 0.6 MG/DL (0.2-1.0); BLOOD UREA NITROGEN 31 MG/DL (7-18); CARBON DIOXIDE LEVEL 27 MEQ/L (21-32); CHLORIDE LEVEL 109 MEQ/L (98-107); CHOLESTEROL LEVEL 148 MG/DL (<200); CHOLESTEROL RISK RATIO 3.523 (<5); CREATININE FOR GFR 1.02 MG/DL (0.70-1.30); GLOMERULAR FILTRATION RATE > 60.0 (>35); GLUCOSE, FASTING 137 MG/DL (70-100); HDL CHOLESTEROL 42 MG/DL (>40); LDL CHOLESTEROL 93 MG/DL (<100); NON-HDL-C 106 MG/DL; POTASSIUM SERUM 4.6 MEQ/L (3.5-5.1); SODIUM LEVEL 142 MEQ/L (136-145); TOTAL PROTEIN 7.4 GM/DL (6.4-8.2); TRIGLYCERIDES LEVEL 65 MG/DL (<150)
== END ==
LOC: M LAB 10:12
PROVIDERS: ATTEND Internal Medicine
DX: E11.9 Type 2 diabetes mellitus without complications (principal)

== ENCOUNTER → 2021-05-23 | Outpatient (CLI) | payer MEDICARE, OTHER ==
[2021-05-23 09:27] LABS: BLOOD UREA NITROGEN 28 MG/DL (7-18); CALCIUM LEVEL 8.5 MG/DL (8.8-10.2); CARBON DIOXIDE LEVEL 27 MEQ/L (21-32); CHLORIDE LEVEL 111 MEQ/L (98-107); GLOMERULAR FILTRATION RATE > 60.0 (>35); GLUCOSE, FASTING 115 MG/DL (70-100); NT-PRO BNP 316 PG/ML (<450); POTASSIUM SERUM 4.3 MEQ/L (3.5-5.1); SODIUM LEVEL 142 MEQ/L (136-145)
== END ==
LOC: M LAB 08:27
PROVIDERS: ATTEND Physician Assistant
DX: I50.31 Acute diastolic (congestive) heart failure (principal)

== ENCOUNTER 2021-07-27 20:46 | Observation (INO) | payer MEDICARE, OTHER ==
[~2021-07-27] VITALS: Ht 157.5 cm; Wt 96.5 kg
[2021-07-27] MEDS ORDERED: FLON1SPR NARES (20:55)
[2021-07-27] MEDS ORDERED: ESSE250T PO (20:55)
[2021-07-27 23:14] LABS: BASO % 0.5 % (0.0-1.0); EOS # 0.4 10^3/uL (0.0-0.5); EOS % 6.4 % (0.0-3.0); HEMATOCRIT 35.8 % (42.0-52.0); HEMOGLOBIN 11.6 g/dl (13.5-17.5); LYMPH # 2.2 10^3/uL (1.5-5.0); LYMPH % 38.4 % (24.0-44.0); MEAN CORPUSCULAR HEMOGLOBIN 30.2 pg (27.0-33.0); MEAN CORPUSCULAR HGB CONC 32.4 g/dl (32.0-36.5); MEAN CORPUSCULAR VOLUME 93.2 fl (80.0-96.0); MONO # 0.5 10^3/uL (0.0-0.8); MONO % 8.2 % (2.0-8.0); NEUTROPHILS # 2.6 10^3/uL (1.5-8.5); NEUTROPHILS % 46.1 % (36.0-66.0); PLATELET COUNT, AUTOMATED 141 10^3/uL (150-450); RED BLOOD COUNT 3.84 10^6/uL (4.30-6.10); WHITE BLOOD COUNT 5.6 10^3/uL (4.0-10.0)
[2021-07-27 23:34] LABS: CK-MB VALUE MASS 1.2 NG/ML (<3.6); MB/CK RELATIVE INDEX 2.45 (< OR =4)
[2021-07-27 23:48] LABS: ALBUMIN 3.2 GM/DL (3.2-5.2); BILIRUBIN,DIRECT 0.2 MG/DL (0.0-0.2); BILIRUBIN,TOTAL 0.6 MG/DL (0.2-1.0); CALCIUM LEVEL 8.7 MG/DL (8.8-10.2); CREATININE FOR GFR 1.31 MG/DL (0.70-1.30); FREE T4 1.25 NG/DL (0.76-1.46); GLOMERULAR FILTRATION RATE 55.9 (>35); POTASSIUM SERUM 4.2 MEQ/L (3.5-5.1); THYROID STIMULATING HORMONE 1.97 uIU/ML (0.358-3.740)
[2021-07-27] MEDS ORDERED: diphenhydrAMINE 50MG/ML VIAL (J1200) IV ONE (23:55)
[2021-07-27] MEDS ORDERED: HYDROCORTISONE 100 MG/2 ML VIAL (J1720 PER 1) IV ONE (23:55)
[2021-07-27] MEDS ORDERED: FAMOTIDINE 20MG/2ML VIAL IVP ONE (23:55)
[2021-07-28] MEDS ORDERED: ISOVUE-370 76% 100ML VIAL As Ordered ONE (00:54)
[2021-07-28] MEDS ORDERED: ZOLO100T PO (03:04)
[2021-07-28] MEDS ORDERED: ASPI81TA26 PO (03:04)
[2021-07-28] MEDS ORDERED: LEVO112T2 PO (03:04)
[2021-07-28] MEDS ORDERED: HOME MED LIST COMPLETE! XX SCH (03:05)
[2021-07-28] MEDS ORDERED: METAMUCIL (PSYLLIUM) PACKET PO PRN (03:20)
[2021-07-28] MEDS ORDERED: GLUCAGON INJ 1MG VIAL SC PRN (03:20)
[2021-07-28] MEDS ORDERED: DEXTROSE 50% 50 ML SYRINGE IV PRN (03:20)
[2021-07-28] MEDS ORDERED: FLUTICASONE PROP 0.05% NASAL SPRAY 16 GM (FLONASE) NARES PRN (03:20)
[2021-07-28] MEDS ORDERED: GLUCOSE 4GM CHEW TABLET PO PRN (03:20)
[2021-07-28] MEDS ORDERED: ACETAMINOPHEN TAB 650MG DOSE (2X325MG) PO PRN (03:20)
[2021-07-28 03:48] LABS: RSV AMPLIFICATION NEGATIVE (NEGATIVE)
[2021-07-28 05:30] VITALS: BP 114/57
[2021-07-28 06:00] VITALS: BP_SYST 136; BP_SYST 150; BP_SYST 158; BP_DIAS 68; BP_DIAS 73; BP_DIAS 92
[2021-07-28] MEDS: LEVOTHYROXINE 125MCG TABLET (0.125MG) PO SCH (06:01)
[2021-07-28] MEDS: HEPARIN SOD (PORCINE) 5000UNITS/ML 1ML VIAL/SYRINGE SQ SCH ×3 (06:01→21:06)
[2021-07-28 06:41] LABS: BASO % 0.4 % (0.0-1.0); EOS # 0.1 10^3/uL (0.0-0.5); EOS % 1.6 % (0.0-3.0); HEMATOCRIT 36.1 % (42.0-52.0); HEMOGLOBIN 11.7 g/dl (13.5-17.5); LYMPH # 1.4 10^3/uL (1.5-5.0); LYMPH % 27.9 % (24.0-44.0); MEAN CORPUSCULAR HEMOGLOBIN 29.8 pg (27.0-33.0); MEAN CORPUSCULAR HGB CONC 32.4 g/dl (32.0-36.5); MEAN CORPUSCULAR VOLUME 91.9 fl (80.0-96.0); MONO # 0.2 10^3/uL (0.0-0.8); MONO % 3.9 % (2.0-8.0); NEUTROPHILS # 3.4 10^3/uL (1.5-8.5); NEUTROPHILS % 65.8 % (36.0-66.0); PLATELET COUNT, AUTOMATED 130 10^3/uL (150-450); RED BLOOD COUNT 3.93 10^6/uL (4.30-6.10); WHITE BLOOD COUNT 5.1 10^3/uL (4.0-10.0)
[2021-07-28 07:12] LABS: BLOOD UREA NITROGEN 36 MG/DL (7-18); CALCIUM LEVEL 8.8 MG/DL (8.8-10.2); CARBON DIOXIDE LEVEL 25 MEQ/L (21-32); CHLORIDE LEVEL 109 MEQ/L (98-107); CREATININE FOR GFR 1.19 MG/DL (0.70-1.30); GLOMERULAR FILTRATION RATE > 60.0 (>35); GLUCOSE, FASTING 168 MG/DL (70-100); NT-PRO BNP 270 PG/ML (<450); POTASSIUM SERUM 4.5 MEQ/L (3.5-5.1); SODIUM LEVEL 139 MEQ/L (136-145)
[2021-07-28] MEDS: ASPIRIN 81MG ENTERIC TABLET PO SCH (09:23)
[2021-07-28] MEDS: SERTRALINE 100 MG TAB PO SCH (09:23)
[2021-07-28] MEDS: MULTIVITAMINS/MINERALS THERAP 1 TAB PO SCH (09:23)
[2021-07-28] MEDS: OMEPRAZOLE 20MG CAP PO SCH (09:23)
[2021-07-28] MEDS: PRAVASTATIN 20 MG TAB PO SCH (09:24)
[2021-07-28] MEDS: PRAMIPEXOLE 0.25 MG TAB PO SCH ×3 (09:24→21:06)
[2021-07-28] MEDS: HumaLOG INSULIN (NovoLOG) PER UNIT SC SCH ×3 (09:24→17:36)
[2021-07-28 10:13] LABS: HEMOGLOBIN A1c 6.6 %
[2021-07-28 14:00] VITALS: BP 115/58
[2021-07-28] MEDS ORDERED: LATANOPROST 0.005% OPHTH SOLN 2.5 ML OU SCH (21:00)
[2021-07-28] MEDS ORDERED: HumaLOG INSULIN (NovoLOG) PER UNIT SC SCH (21:00)
[2021-07-28 22:00] VITALS: BP 115/55
[2021-07-29] MEDS: HEPARIN SOD (PORCINE) 5000UNITS/ML 1ML VIAL/SYRINGE SQ SCH (05:36)
[2021-07-29] MEDS: LEVOTHYROXINE 125MCG TABLET (0.125MG) PO SCH (05:36)
[2021-07-29 06:00] VITALS: BP_SYST 120; BP_SYST 126; BP_SYST 127; BP_DIAS 58; BP_DIAS 59
[2021-07-29 06:42] LABS: BASO % 0.4 % (0.0-1.0); EOS # 0.3 10^3/uL (0.0-0.5); EOS % 5.9 % (0.0-3.0); HEMATOCRIT 36.6 % (42.0-52.0); HEMOGLOBIN 11.8 g/dl (13.5-17.5); LYMPH # 2.3 10^3/uL (1.5-5.0); LYMPH % 42.4 % (24.0-44.0); MEAN CORPUSCULAR HEMOGLOBIN 30.3 pg (27.0-33.0); MEAN CORPUSCULAR HGB CONC 32.2 g/dl (32.0-36.5); MEAN CORPUSCULAR VOLUME 93.8 fl (80.0-96.0); MONO # 0.4 10^3/uL (0.0-0.8); MONO % 7.2 % (2.0-8.0); NEUTROPHILS # 2.4 10^3/uL (1.5-8.5); NEUTROPHILS % 43.7 % (36.0-66.0); PLATELET COUNT, AUTOMATED 137 10^3/uL (150-450); WHITE BLOOD COUNT 5.4 10^3/uL (4.0-10.0)
[2021-07-29 07:09] LABS: BLOOD UREA NITROGEN 31 MG/DL (7-18); CALCIUM LEVEL 8.7 MG/DL (8.8-10.2); CARBON DIOXIDE LEVEL 26 MEQ/L (21-32); CHLORIDE LEVEL 112 MEQ/L (98-107); CREATININE FOR GFR 1.14 MG/DL (0.70-1.30); GLOMERULAR FILTRATION RATE > 60.0 (>35); GLUCOSE, FASTING 118 MG/DL (70-100); POTASSIUM SERUM 4.2 MEQ/L (3.5-5.1); SODIUM LEVEL 143 MEQ/L (136-145)
[2021-07-29] MEDS: SERTRALINE 100 MG TAB PO SCH (08:57)
[2021-07-29] MEDS: PRAVASTATIN 20 MG TAB PO SCH (08:57)
[2021-07-29] MEDS: ASPIRIN 81MG ENTERIC TABLET PO SCH (08:57)
[2021-07-29] MEDS: OMEPRAZOLE 20MG CAP PO SCH (08:57)
[2021-07-29] MEDS: MULTIVITAMINS/MINERALS THERAP 1 TAB PO SCH (08:57)
[2021-07-29] MEDS: PRAMIPEXOLE 0.25 MG TAB PO SCH (08:57)
[2021-07-29] MEDS: HumaLOG INSULIN (NovoLOG) PER UNIT SC SCH (08:58)
== END 2021-07-29 10:59 | disposition home or self-care (01) ==
LOC: M ED 20:46 → M ED INP 07-28 03:18 → EEVIPCON 07-28 03:18 → ENRESERV 07-28 04:50 → M MSPAV 07-28 05:09
PROVIDERS: ADMIT Family Medicine; ATTEND Family Medicine
DX: R55 Syncope and collapse (principal); N17.9 Acute kidney failure, unspecified; I11.0 Hypertensive heart disease with heart failure; I50.9 Heart failure, unspecified; R00.1 Bradycardia, unspecified; I25.10 Atherosclerotic heart disease of native coronary artery without angina pectoris; G47.33 Obstructive sleep apnea (adult) (pediatric); N40.0 Benign prostatic hyperplasia without lower urinary tract symptoms; F32.A Depression, unspecified; K21.9 Gastro-esophageal reflux disease without esophagitis; Z85.048 Personal history of other malignant neoplasm of rectum, rectosigmoid junction, and anus; Z91.14 Patient's other noncompliance with medication regimen; F43.21 Adjustment disorder with depressed mood; G31.9 Degenerative disease of nervous system, unspecified; I73.9 Peripheral vascular disease, unspecified; M31.6 Other giant cell arteritis; H57.89 Other specified disorders of eye and adnexa; H40.9 Unspecified glaucoma; G25.81 Restless legs syndrome; I65.23 Occlusion and stenosis of bilateral carotid arteries; I67.2 Cerebral atherosclerosis; I66.02 Occlusion and stenosis of left middle cerebral artery; Z79.899 Other long term (current) drug therapy; Z79.82 Long term (current) use of aspirin; Z91.041 Radiographic dye allergy status; Z88.8 Allergy status to other drugs, medicaments and biological substances; Z91.030 Bee allergy status
CPT/HCPCS: 36415; 70450; 70496; 70498; 71046; 80048; 80076; 81001; 82550; 82553; 83036; 83735; 83880; 84439; 84443; 84484; 85025; 87631; 87641; 93005; 93041; 93306; 94760; 96372; 96374; 96375; 97112; 97116; 97162; 97530; 99285; G0378; J1200; J1644; J1720; J1815; Q9967

== ENCOUNTER 2021-09-11 12:02 | Emergency (ER) | payer MEDICARE ==
[~2021-09-11] VITALS: Ht 162.6 cm; Wt 87.3 kg
[~2021-09-11 12:02] MED LIST changes: +ASPI81TA26 PO; +ESSE250T PO; +FLON1SPR NARES; +LEVO112T2 PO; +ZOLO100T PO
[2021-09-11 12:37] LABS: BASO % 0.5 % (0.0-1.0); EOS # 0.4 10^3/uL (0.0-0.5); EOS % 6.9 % (0.0-3.0); HEMATOCRIT 36.5 % (42.0-52.0); HEMOGLOBIN 12.1 g/dl (13.5-17.5); LYMPH # 2.1 10^3/uL (1.5-5.0); MEAN CORPUSCULAR HEMOGLOBIN 30.9 pg (27.0-33.0); MEAN CORPUSCULAR HGB CONC 33.2 g/dl (32.0-36.5); MEAN CORPUSCULAR VOLUME 93.4 fl (80.0-96.0); MONO # 0.5 10^3/uL (0.0-0.8); MONO % 8.3 % (2.0-8.0); NEUTROPHILS # 2.5 10^3/uL (1.5-8.5); NEUTROPHILS % 46.1 % (36.0-66.0); PLATELET COUNT, AUTOMATED 136 10^3/uL (150-450); RED BLOOD COUNT 3.91 10^6/uL (4.30-6.10); WHITE BLOOD COUNT 5.5 10^3/uL (4.0-10.0)
[2021-09-11 12:48] LABS: INR 1.09; PROTHROMBIN TIME 14.5 SECONDS (12.7-14.5)
[2021-09-11 13:04] LABS: MB/CK RELATIVE INDEX 2.56 (< OR =4)
[2021-09-11 13:12] LABS: ALBUMIN 3.3 GM/DL (3.2-5.2); ALT/SGPT 24 U/L (12-78); BILIRUBIN,DIRECT 0.1 MG/DL (0.0-0.2); BILIRUBIN,TOTAL 0.5 MG/DL (0.2-1.0); BLOOD UREA NITROGEN 30 MG/DL (7-18); CALCIUM LEVEL 8.6 MG/DL (8.8-10.2); CARBON DIOXIDE LEVEL 26 MEQ/L (21-32); CHLORIDE LEVEL 112 MEQ/L (98-107); GLOMERULAR FILTRATION RATE > 60.0 (>35); GLUCOSE, FASTING 114 MG/DL (70-100); LIPASE 90 U/L (73-393); POTASSIUM SERUM 4.4 MEQ/L (3.5-5.1); SODIUM LEVEL 142 MEQ/L (136-145); TOTAL PROTEIN 6.6 GM/DL (6.4-8.2)
[2021-09-11] MEDS ORDERED: NS 500 ML IV ONE (14:25)
[2021-09-11 14:38] LABS: CK-MB VALUE MASS 1.3 NG/ML (<3.6); MB/CK RELATIVE INDEX 3.71 (< OR =4)
[2021-09-11 15:01] VITALS: BP 133/66
== END 2021-09-11 15:33 | disposition home or self-care (01) ==
LOC: M ED 12:02 → EDBD 12:02 → M ED 15:33
DX: R55 Syncope and collapse (principal); R07.9 Chest pain, unspecified; E11.9 Type 2 diabetes mellitus without complications; E03.9 Hypothyroidism, unspecified; E78.5 Hyperlipidemia, unspecified; Z91.030 Bee allergy status; Z88.8 Allergy status to other drugs, medicaments and biological substances

== ENCOUNTER → 2022-02-03 | Outpatient (REF) | payer MEDICARE ==
[2022-02-03 19:04] LABS: APPEARANCE, URINE MANUAL CLEAR (CLEAR); BILIRUBIN, URINE MANUAL NEGATIVE (NEGATIVE); BLOOD URINE MANUAL NEGATIVE (NEGATIVE); COLOR, URINE MANUAL YELLOW (YELLOW); GLUCOSE, URINE (UA) MANUAL NEGATIVE (NEGATIVE); KETONE, URINE MANUAL NEGATIVE (NEGATIVE); LEUKOCYTE ESTERASE, URINE MAN NEGATIVE (NEGATIVE); NITRITE, URINE MANUAL NEGATIVE (NEGATIVE); PROTEIN, URINE MANUAL NEGATIVE (NEGATIVE); UROBILINOGEN, URINE MANUAL NORMAL (NORMAL)
== END ==
LOC: M SMT 17:16
PROVIDERS: ATTEND Urology
DX: N40.0 Benign prostatic hyperplasia without lower urinary tract symptoms (principal)

== ENCOUNTER → 2022-02-04 | Outpatient (CLI) | payer MEDICARE | LOC: M RAD 12:36 | PROVIDERS: ATTEND Physician Assistant | DX: N28.1 Cyst of kidney, acquired (principal) ==

== ENCOUNTER → 2022-03-02 | Outpatient (CLI) | payer MEDICARE ==
[2022-03-02 14:47] LABS: HEMATOCRIT 40.5 % (42.0-52.0); HEMOGLOBIN 12.7 g/dl (13.5-17.5); MEAN CORPUSCULAR HGB CONC 31.4 g/dl (32.0-36.5); MEAN CORPUSCULAR VOLUME 95.5 fl (80.0-96.0); PLATELET COUNT, AUTOMATED 148 10^3/uL (150-450); RED BLOOD COUNT 4.24 10^6/uL (4.30-6.10); WHITE BLOOD COUNT 6.4 10^3/uL (4.0-10.0)
[2022-03-02 15:05] LABS: ALBUMIN 3.5 G/DL (3.2-5.2); ALKALINE PHOSPHATASE 89 U/L (46-116); ALT/SGPT 19 U/L (7.0-40); AST/SGOT 24 U/L (<34); BILIRUBIN,TOTAL 0.5 MG/DL (0.3-1.2); BLOOD UREA NITROGEN 25 MG/DL (9-23); CALCIUM LEVEL 8.8 MG/DL (8.3-10.6); CARBON DIOXIDE LEVEL 29 MMOL/L (20-31); CHLORIDE LEVEL 106 MMOL/L (98-107); CREATININE FOR GFR 0.87 MG/DL (0.70-1.30); GLOMERULAR FILTRATION RATE > 60.0 (>35); GLUCOSE, FASTING 97 MG/DL (74-106); POTASSIUM SERUM 4.2 MMOL/L (3.5-5.1); SODIUM LEVEL 141 MMOL/L (136-145); TOTAL PROTEIN 7.1 G/DL (5.7-8.2)
[2022-03-02 15:17] LABS: INR 0.98; PROTHROMBIN TIME 13.2 SECONDS (12.5-14.5)
== END ==
LOC: M RAD 13:39
PROVIDERS: ATTEND Urology
DX: N20.0 Calculus of kidney (principal)

== ENCOUNTER → 2022-03-11 | Outpatient (CLI) | payer MEDICARE ==
[~2022-03-11] MED LIST changes: +AFLI2SYR IO; +FINA5TAB2 PO; +MIDO2.5T PO
== END ==
LOC: M LAB 13:36
PROVIDERS: ATTEND Urology
DX: N40.0 Benign prostatic hyperplasia without lower urinary tract symptoms (principal)

== ENCOUNTER → 2022-03-17 | Outpatient (CLI) | payer MEDICARE | LOC: M LABSMTC 09:43 | PROVIDERS: ATTEND Anesthesiology | DX: Z01.812 Encounter for preprocedural laboratory examination (principal) ==

== ENCOUNTER 2022-03-19 07:05 | Day surgery (SDC) | payer MEDICARE ==
[~2022-03-19] VITALS: Ht 162.6 cm; Wt 84.4 kg
[~2022-03-19 07:05] MED LIST changes: +ceFAZolin SOD 2 GM in IV 1 EA IV ONE
[2022-03-19] MEDS ORDERED: INSULIN LISPRO (NovoLOG) PER UNIT SC PRN (08:25)
[2022-03-19] MEDS ORDERED: LR 1,000 ML IV SCH ×2 (08:25→10:50)
[2022-03-19] MEDS ORDERED: fentaNYL 100 MCG/2 ML INJECTION As Ordered ONE (09:22)
[2022-03-19] MEDS ORDERED: ONDANSETRON 4MG 2ML VIAL As Ordered ONE ×2 (09:22→09:36)
[2022-03-19] MEDS ORDERED: propofoL 200 MG/20 ML VIAL As Ordered ONE (09:22)
[2022-03-19] MEDS ORDERED: LIDOCAINE 2% 100MG/5ML SDV (FOR ANES.) As Ordered ONE (09:22)
[2022-03-19] MEDS ORDERED: ACETAMINOPHEN 1000MG 100ML IV BAG As Ordered ONE (10:04)
[2022-03-19] MEDS ORDERED: BACT800T5 PO (10:41)
[2022-03-19] MEDS ORDERED: ONDANSETRON 4MG 2ML VIAL IV PRN (10:50)
[2022-03-19] MEDS ORDERED: oxyCODONE 5MG TAB PO PRN (10:50)
[2022-03-19] MEDS ORDERED: HYDROMORPHONE HCL 0.5 MG/ 0.5 ML SYRINGE (J1170 PER 1) IV PRN (10:50)
[2022-03-19] MEDS ORDERED: fentaNYL 100 MCG/2 ML INJECTION IV PRN (10:50)
[2022-03-19 12:29] VITALS: BP 123/62
== END 2022-03-19 13:03 | disposition home or self-care (01) ==
LOC: M SDC 07:05
PROVIDERS: ATTEND Urology
DX: N40.1 Benign prostatic hyperplasia with lower urinary tract symptoms (principal); N21.0 Calculus in bladder; I25.10 Atherosclerotic heart disease of native coronary artery without angina pectoris; I25.2 Old myocardial infarction; Z95.5 Presence of coronary angioplasty implant and graft; E78.00 Pure hypercholesterolemia, unspecified; I95.9 Hypotension, unspecified; E03.9 Hypothyroidism, unspecified; K21.9 Gastro-esophageal reflux disease without esophagitis; Z85.00 Personal history of malignant neoplasm of unspecified digestive organ; M19.90 Unspecified osteoarthritis, unspecified site; G50.0 Trigeminal neuralgia; D33.3 Benign neoplasm of cranial nerves; G47.33 Obstructive sleep apnea (adult) (pediatric); R32 Unspecified urinary incontinence; Z79.899 Other long term (current) drug therapy; Z79.890 Hormone replacement therapy; Z79.82 Long term (current) use of aspirin; Z91.030 Bee allergy status; Z91.041 Radiographic dye allergy status; Z88.8 Allergy status to other drugs, medicaments and biological substances
CPT/HCPCS: 52601; 88305; J0131; J0690; J1100; J2405; J3010

== ENCOUNTER → 2022-03-26 | Outpatient (REF) | payer MEDICARE ==
[~2022-03-26] MED LIST changes: +BACT800T5 PO; -ceFAZolin SOD 2 GM in IV 1 EA IV ONE
[2022-03-26 14:42] LABS: APPEARANCE, URINE MANUAL CLEAR (CLEAR); COLOR, URINE MANUAL YELLOW (YELLOW); PH,URINE MAN 5.5 UNITS (5.0 - 7.0)
[2022-03-26 14:43] LABS: BILIRUBIN, URINE MANUAL NEGATIVE (NEGATIVE); BLOOD URINE MANUAL POSITIVE (NEGATIVE); GLUCOSE, URINE (UA) MANUAL NEGATIVE (NEGATIVE); KETONE, URINE MANUAL NEGATIVE (NEGATIVE); NITRITE, URINE MANUAL NEGATIVE (NEGATIVE); PROTEIN, URINE MANUAL 1+ mg/dL (NEGATIVE); UROBILINOGEN, URINE MANUAL NORMAL (NORMAL)
[2022-03-26 14:44] LABS: LEUKOCYTE ESTERASE, URINE MAN TRACE (NEGATIVE)
[2022-03-26 15:10] LABS: CALCIUM OXALATE CRYSTALS,URINE SMALL AMOUNT /hpf
[2022-03-26 15:11] LABS: BACTERIA, URINE NONE SEEN; RBC, URINE 15-20 /hpf (0-3); SQUAMOUS EPITHELIAL CELL URINE SMALL AMOUNT /hpf (SMALL AMT)
[2022-03-26 15:12] LABS: HYALINE CAST, URINE NONE SEEN /lpf (0-1)
== END ==
LOC: M SMT 12:36
PROVIDERS: ATTEND Physician Assistant
DX: Z48.816 Encounter for surgical aftercare following surgery on the genitourinary system (principal)

== ENCOUNTER → 2022-03-31 | Outpatient (REF) | payer MEDICARE ==
[2022-03-31 18:49] LABS: APPEARANCE, URINE MANUAL CLOUDY (CLEAR); BILIRUBIN, URINE MANUAL NEGATIVE (NEGATIVE); BLOOD URINE MANUAL POSITIVE (NEGATIVE); COLOR, URINE MANUAL YELLOW (YELLOW); GLUCOSE, URINE (UA) MANUAL NEGATIVE (NEGATIVE); KETONE, URINE MANUAL NEGATIVE (NEGATIVE); LEUKOCYTE ESTERASE, URINE MAN NEGATIVE (NEGATIVE); NITRITE, URINE MANUAL NEGATIVE (NEGATIVE); PROTEIN, URINE MANUAL 2+ mg/dL (NEGATIVE); SPECIFIC GRAVITY,URINE MANUAL 1.025 (1.002-1.035); UROBILINOGEN, URINE MANUAL NORMAL (NORMAL)
[2022-03-31 19:31] LABS: BACTERIA, URINE NONE SEEN; HYALINE CAST, URINE NONE SEEN /lpf (0-1); MUCUS, URINE LARGE AMOUNT (NEGATIVE); RBC, URINE TNTC /hpf (0-3); SQUAMOUS EPITHELIAL CELL URINE SMALL AMOUNT /hpf (SMALL AMT)
== END ==
LOC: M SMT 16:43
PROVIDERS: ATTEND Physician Assistant
DX: R30.0 Dysuria (principal)

== ENCOUNTER → 2022-04-15 | Outpatient (REF) | payer MEDICARE ==
[2022-04-15 17:26] LABS: APPEARANCE, URINE MANUAL CLOUDY (CLEAR); BILIRUBIN, URINE MANUAL NEGATIVE (NEGATIVE); BLOOD URINE MANUAL POSITIVE (NEGATIVE); COLOR, URINE MANUAL AMBER (YELLOW); GLUCOSE, URINE (UA) MANUAL NEGATIVE (NEGATIVE); KETONE, URINE MANUAL NEGATIVE (NEGATIVE); LEUKOCYTE ESTERASE, URINE MAN POSITIVE (NEGATIVE); NITRITE, URINE MANUAL NEGATIVE (NEGATIVE); PROTEIN, URINE MANUAL 1+ mg/dL (NEGATIVE); UROBILINOGEN, URINE MANUAL NORMAL (NORMAL)
[2022-04-15 18:36] LABS: AMORPHOUS SEDIMENT, URINE LARGE AMOUNT (NEGATIVE); BACTERIA, URINE SMALL AMOUNT; CALCIUM OXALATE CRYSTALS,URINE LARGE AMOUNT /hpf; RBC, URINE 30-40 /hpf (0-3); SQUAMOUS EPITHELIAL CELL URINE SMALL AMOUNT /hpf (SMALL AMT)
== END ==
LOC: M SMT 17:01
PROVIDERS: ATTEND Physician Assistant
DX: R30.0 Dysuria (principal)

== ENCOUNTER → 2022-05-18 | Outpatient (REF) | payer MEDICARE ==
[2022-05-18 18:08] LABS: APPEARANCE, URINE CLOUDY (CLEAR); BACTERIA, URINE AUTO 1+ (NEGATIVE); BILIRUBIN, URINE AUTO NEGATIVE (NEGATIVE); BLOOD, URINE BLOOD 3+ (NEGATIVE); CALCIUM OXALATE CRYSTALS LARGE; COLOR, URINE AMBER (YELLOW); GLUCOSE, URINE (UA) AUTO NEGATIVE (NEGATIVE); KETONE, URINE AUTO NEGATIVE (NEGATIVE); LEUKOCYTE ESTERASE, URINE AUTO 3+ (NEGATIVE); MUCUS, URINE SMALL (NEGATIVE); NITRITE, URINE AUTO NEGATIVE (NEGATIVE); PROTEIN, URINE AUTO 2+ mg/dL (NEGATIVE); RBC, URINE AUTO 38 /HPF (0-3); SPECIFIC GRAVITY URINE AUTO 1.023 (1.002-1.035); SQUAMOUS EPITHELIAL CELL UR AU 0 /HPF (0-6); WBC, URINE AUTO TNTC /HPF (0-3)
== END ==
LOC: M SMT 17:26
PROVIDERS: ATTEND Physician Assistant
DX: R39.15 Urgency of urination (principal)

== ENCOUNTER 2022-06-19 17:44 | Emergency (ER) | payer MEDICARE ==
[~2022-06-19] VITALS: Ht 162.6 cm; Wt 88.0 kg
[2022-06-19 18:44] LABS: BASO % 0.4 % (0.0-1.0); EOS # 0.2 10^3/uL (0.0-0.5); EOS % 2.9 % (0.0-3.0); HEMATOCRIT 35.9 % (42.0-52.0); HEMOGLOBIN 11.6 g/dl (13.5-17.5); LYMPH # 2.7 10^3/uL (1.5-5.0); LYMPH % 50.8 % (24.0-44.0); MEAN CORPUSCULAR HEMOGLOBIN 30.9 pg (27.0-33.0); MEAN CORPUSCULAR HGB CONC 32.3 g/dl (32.0-36.5); MEAN CORPUSCULAR VOLUME 95.5 fl (80.0-96.0); MONO # 0.4 10^3/uL (0.0-0.8); NEUTROPHILS % 38.7 % (36.0-66.0); PLATELET COUNT, AUTOMATED 151 10^3/uL (150-450); RED BLOOD COUNT 3.76 10^6/uL (4.30-6.10); WHITE BLOOD COUNT 5.3 10^3/uL (4.0-10.0)
[2022-06-19 18:55] LABS: LIPASE 32 U/L (12-53)
[2022-06-19 19:01] LABS: ALBUMIN 3.3 G/DL (3.2-5.2); ALKALINE PHOSPHATASE 81 U/L (46-116); ALT/SGPT 17 U/L (7.0-40); AST/SGOT 22 U/L (<34); BILIRUBIN,DIRECT 0.2 MG/DL (<0.4); BILIRUBIN,TOTAL 0.6 MG/DL (0.3-1.2); BLOOD UREA NITROGEN 32 MG/DL (9-23); CALCIUM LEVEL 8.5 MG/DL (8.3-10.6); CARBON DIOXIDE LEVEL 26 MMOL/L (20-31); CHLORIDE LEVEL 109 MMOL/L (98-107); CK-MB VALUE MASS < 1.0 NG/ML (<3.6); CREATININE FOR GFR 0.89 MG/DL (0.70-1.30); GLOMERULAR FILTRATION RATE > 60.0 (>35); GLUCOSE, FASTING 141 MG/DL (74-106); POTASSIUM SERUM 4.6 MMOL/L (3.5-5.1); SODIUM LEVEL 140 MMOL/L (136-145); THYROID STIMULATING HORMONE 4.842 uIU/ML (0.55-4.78); TOTAL PROTEIN 6.4 G/DL (5.7-8.2)
[2022-06-19 19:05] LABS: CPK CREATINE PHOSPHOKINASE 50 U/L (46-171)
[2022-06-19 19:10] LABS: RSV AMPLIFICATION NEGATIVE (NEGATIVE)
[2022-06-19] MEDS ORDERED: hydrOXYzine 50 MG TAB PO STA (19:45)
[2022-06-19 20:27] LABS: CK-MB VALUE MASS < 1.0 NG/ML (<3.6)
[2022-06-19 20:31] LABS: CPK CREATINE PHOSPHOKINASE 63 U/L (46-171); MB/CK RELATIVE INDEX 1.58 (< OR =4)
[2022-06-19 20:54] VITALS: BP 116/59
== END 2022-06-19 20:56 | disposition home or self-care (01) ==
LOC: M ED 17:44 → EDBD 17:44 → M ED 20:56
DX: R07.9 Chest pain, unspecified (principal); I10 Essential (primary) hypertension; E78.5 Hyperlipidemia, unspecified; K21.9 Gastro-esophageal reflux disease without esophagitis; I25.9 Chronic ischemic heart disease, unspecified; E03.9 Hypothyroidism, unspecified; M51.37 Other intervertebral disc degeneration, lumbosacral region; Z85.038 Personal history of other malignant neoplasm of large intestine; Z91.030 Bee allergy status; Z91.041 Radiographic dye allergy status; Z88.8 Allergy status to other drugs, medicaments and biological substances; Z79.899 Other long term (current) drug therapy

== ENCOUNTER 2022-07-03 13:25 | Day surgery (SDC) | payer MEDICARE ==
[~2022-07-03] VITALS: Ht 162.6 cm; Wt 95.2 kg
[~2022-07-03 13:25] MED LIST changes: +ASPI1TAB8 PO; +FAMO20TA5 PO; +HYDR50TA70 PO; +ISOVUE-300 61% 100ML VIAL As Ordered ONE; +LIDOCAINE 1% SDV 30ML VIAL As Ordered ONE; +LIDOCAINE 2% 100MG/5ML SDV (FOR ANES.) As Ordered ONE; +MIDAZOLAM INJ 2MG/2ML VIAL As Ordered ONE; +MUPIROCIN 2% OINT 22 GM TUBE As Ordered ONE; +NEOSPORIN TOP OINT 15GM As Ordered ONE; +VANCOMYCIN 1000MG/20ML VIAL As Ordered ONE; +ceFAZolin SOD 2 GM in IV 1 EA IV ONE; +fentaNYL 100 MCG/2 ML INJECTION As Ordered ONE; +propofoL 200 MG/20 ML VIAL As Ordered ONE
[2022-07-03] MEDS ORDERED: LR 1,000 ML IV SCH ×2 (13:30→17:50)
[2022-07-03] MEDS ORDERED: ceFAZolin SOD 2 GM in IV 1 EA IV ONE (14:30)
[2022-07-03] MEDS ORDERED: HOME MED LIST COMPLETE! XX SCH (14:55)
[2022-07-03] MEDS ORDERED: diphenhydrAMINE 50MG/ML VIAL As Ordered ONE (15:16)
[2022-07-03] MEDS ORDERED: KETAMINE HCL 200MG/20ML VIAL As Ordered ONE (15:56)
[2022-07-03] MEDS ORDERED: ceFAZolin 2 GM/D5W 50 ML IV BAG As Ordered ONE (16:00)
[2022-07-03] MEDS ORDERED: propofoL 500 MG/50 ML VIAL As Ordered ONE (16:13)
[2022-07-03] MEDS ORDERED: HYDROMORPHONE HCL 0.5 MG/ 0.5 ML SYRINGE IV PRN (17:50)
[2022-07-03] MEDS ORDERED: oxyCODONE 5MG TAB PO PRN (17:50)
[2022-07-03] MEDS ORDERED: ONDANSETRON 4MG 2ML VIAL IV PRN (17:50)
[2022-07-03] MEDS ORDERED: fentaNYL 100 MCG/2 ML INJECTION IV PRN (17:50)
[2022-07-03 20:00] VITALS: BP 120/58
[2022-07-03] MEDS ORDERED: FLUTICASONE PROP 0.05% NASAL SPRAY 16 GM (FLONASE) NARES PRN (20:15)
[2022-07-03] MEDS ORDERED: ACETAMINOPHEN TAB 650MG DOSE (2X325MG) PO PRN (20:15)
[2022-07-03] MEDS ORDERED: NITROGLYCERIN 0.4MG SUBL TABLET SL PRN (20:15)
[2022-07-03] MEDS ORDERED: PILL CUTTER 1 EACH XX PRN (20:25)
[2022-07-03 20:30] VITALS: BP 126/60
[2022-07-03] MEDS ORDERED: PRAVASTATIN 20 MG TAB PO SCH (21:00)
[2022-07-03] MEDS ORDERED: LATANOPROST 0.005% OPHTH SOLN 2.5 ML OU SCH (21:00)
[2022-07-03] MEDS ORDERED: FAMOTIDINE 20 MG TAB PO SCH (21:00)
[2022-07-03 21:30] VITALS: BP 131/63
[2022-07-03 22:30] VITALS: BP 111/59
[2022-07-03 23:30] VITALS: BP 120/68
[2022-07-04] VITALS: BP 120/66
[2022-07-04 04:25] VITALS: BP 116/64
[2022-07-04] MEDS ORDERED: LEVOTHYROXINE 112MCG TABLET (0.112MG) PO SCH (06:00)
[2022-07-04 07:35] VITALS: BP 134/62
[2022-07-04] MEDS ORDERED: MIDODRINE 2.5 MG TAB PO SCH (08:00)
[2022-07-04] MEDS ORDERED: ACET1TAB55 PO (08:44)
[2022-07-04] MEDS ORDERED: MAGNESIUM OXIDE 400MG TAB (MAG-OX) PO SCH (09:00)
[2022-07-04] MEDS ORDERED: POTASSIUM CHLORIDE 10MEQ SR TABLET PO SCH (09:00)
[2022-07-04] MEDS ORDERED: ASPIRIN 81MG CHEW TABLET PO SCH (09:00)
[2022-07-04] MEDS ORDERED: SERTRALINE 100 MG TAB PO SCH (09:00)
== END 2022-07-04 12:15 | disposition home or self-care (01) ==
LOC: M SDC 13:25 → M PCU 18:50 → M SDC 07-04 12:15
PROVIDERS: ATTEND Internal Medicine Cardiovascular Disease
DX: I44.1 Atrioventricular block, second degree (principal); I49.5 Sick sinus syndrome; I11.0 Hypertensive heart disease with heart failure; I50.9 Heart failure, unspecified; Z95.5 Presence of coronary angioplasty implant and graft; I25.10 Atherosclerotic heart disease of native coronary artery without angina pectoris; E78.00 Pure hypercholesterolemia, unspecified; I95.9 Hypotension, unspecified; E03.9 Hypothyroidism, unspecified; K21.9 Gastro-esophageal reflux disease without esophagitis; Z85.09 Personal history of malignant neoplasm of other digestive organs; Z90.49 Acquired absence of other specified parts of digestive tract; G50.0 Trigeminal neuralgia; F32.A Depression, unspecified; M19.90 Unspecified osteoarthritis, unspecified site; R07.9 Chest pain, unspecified; G47.30 Sleep apnea, unspecified; R32 Unspecified urinary incontinence; Z88.8 Allergy status to other drugs, medicaments and biological substances; Z91.041 Radiographic dye allergy status; Z91.030 Bee allergy status; Z79.899 Other long term (current) drug therapy; Z79.82 Long term (current) use of aspirin; Z79.2 Long term (current) use of antibiotics; Z79.890 Hormone replacement therapy
CPT/HCPCS: 33208; 71045; 71046; 76000; 87635; 93005; C1785; C1898; J0690; J1200; J2250; J3010; Q9967

== ENCOUNTER → 2022-10-21 | Outpatient (CLI) | payer MEDICARE ==
[~2022-10-21] MED LIST changes: +ACET1TAB55 PO; -ISOVUE-300 61% 100ML VIAL As Ordered ONE; -LIDOCAINE 1% SDV 30ML VIAL As Ordered ONE; -LIDOCAINE 2% 100MG/5ML SDV (FOR ANES.) As Ordered ONE; -MIDAZOLAM INJ 2MG/2ML VIAL As Ordered ONE; -MUPIROCIN 2% OINT 22 GM TUBE As Ordered ONE; -NEOSPORIN TOP OINT 15GM As Ordered ONE; -VANCOMYCIN 1000MG/20ML VIAL As Ordered ONE; -ceFAZolin SOD 2 GM in IV 1 EA IV ONE; -fentaNYL 100 MCG/2 ML INJECTION As Ordered ONE; -propofoL 200 MG/20 ML VIAL As Ordered ONE
== END ==
LOC: M WUC 15:30
PROVIDERS: ATTEND Internal Medicine
DX: N62 Hypertrophy of breast (principal)

== ENCOUNTER → 2022-11-17 | Outpatient (CLI) | payer MEDICARE | LOC: M WHC 14:00 | PROVIDERS: ATTEND Internal Medicine | DX: N62 Hypertrophy of breast (principal) | CPT/HCPCS: 77066; G0279 ==

== ENCOUNTER → 2022-12-17 | Outpatient (REF) | payer MEDICARE ==
[2022-12-17 14:34] LABS: APPEARANCE, URINE CLEAR (CLEAR); BACTERIA, URINE AUTO NEGATIVE (NEGATIVE); BILIRUBIN, URINE AUTO NEGATIVE (NEGATIVE); BLOOD, URINE BLOOD NEGATIVE (NEGATIVE); COLOR, URINE YELLOW (YELLOW); GLUCOSE, URINE (UA) AUTO NEGATIVE (NEGATIVE); KETONE, URINE AUTO NEGATIVE (NEGATIVE); LEUKOCYTE ESTERASE, URINE AUTO NEGATIVE (NEGATIVE); MUCUS, URINE SMALL (NEGATIVE); NITRITE, URINE AUTO NEGATIVE (NEGATIVE); PROTEIN, URINE AUTO NEGATIVE (NEGATIVE); RBC, URINE AUTO 0 /HPF (0-3); SPECIFIC GRAVITY URINE AUTO 1.018 (1.002-1.035); SQUAMOUS EPITHELIAL CELL UR AU 0 /HPF (0-6); UROBILINOGEN, URINE AUTO 0.2 mg/dL (0.0-2.0); WBC, URINE AUTO 1 /HPF (0-3)
== END ==
LOC: M SMT 13:02
PROVIDERS: ATTEND Physician Assistant
DX: Z87.448 Personal history of other diseases of urinary system (principal)

== ENCOUNTER → 2023-02-16 | Outpatient (CLI) | payer MEDICARE | LOC: M WUC 10:59 | PROVIDERS: ATTEND Internal Medicine | DX: J06.9 Acute upper respiratory infection, unspecified (principal) ==

== ENCOUNTER → 2023-09-01 | Outpatient (CLI) | payer MEDICARE | LOC: M PLAIMG 09:01 | PROVIDERS: ATTEND Physician Assistant | DX: I35.8 Other nonrheumatic aortic valve disorders (principal) ==

== ENCOUNTER → 2024-06-02 | Outpatient (CLI) | payer MEDICARE ==
[~2024-06-02] MED LIST changes: +ALFU10TA23 PO; -ALFU10TA3 PO; +GABA-1172 PO; -GABA-282 PO; -MIDO2.5T PO; +MIDO2.5T3 PO
== END ==
LOC: M WUC 13:39
PROVIDERS: ATTEND Internal Medicine
DX: M16.12 Unilateral primary osteoarthritis, left hip (principal); M25.552 Pain in left hip

== ENCOUNTER 2024-07-03 18:08 | Emergency (ER) | payer MEDICARE ==
[~2024-07-03] VITALS: Ht 162.6 cm; Wt 86.4 kg
[2024-07-03 18:23] VITALS: BP 137/72; TEMP 98.2; O2SAT 94
== END 2024-07-03 21:00 | disposition left against medical advice (07) ==
LOC: M ED 18:08
DX: Z53.21 Procedure and treatment not carried out due to patient leaving prior to being seen by health care provider (principal)

== ENCOUNTER → 2024-12-07 | Outpatient (CLI) | payer MEDICARE ==
[~2024-12-07] MED LIST changes: -ESSE250T PO; +ISOS-18 PO; -ISOS30TAB PO; +MAGN250T17 PO; +PRAV10TA PO; -PRAV10TA4 PO; -PRAV20TA2 PO; +PRAV20TA78 PO
== END ==
LOC: M RAD 11:28
PROVIDERS: ATTEND Physician Assistant
DX: Z87.448 Personal history of other diseases of urinary system (principal); I10 Essential (primary) hypertension

== ENCOUNTER 2025-01-24 09:45 | Emergency (ER) | payer MEDICARE ==
[~2025-01-24] VITALS: Ht 162.6 cm; Wt 79.2 kg
[2025-01-24 10:15] LABS: BASO # 0.0 10^3/uL (0.0-0.2); BASO % 0.3 % (0.0-1.0); EOS # 0.1 10^3/uL (0.0-0.5); EOS % 1.3 % (0.0-3.0); LYMPH # 3.7 10^3/uL (1.5-5.0); LYMPH % 42.3 % (24.0-44.0); MONO # 0.6 10^3/uL (0.0-0.8); MONO % 7.1 % (2.0-8.0); NEUTROPHILS # 4.3 10^3/uL (1.5-8.5); NEUTROPHILS % 48.7 % (36.0-66.0); PLATELET COUNT, AUTOMATED 160 10^3/uL (150-450)
[2025-01-24 10:44] LABS: CK-MB VALUE MASS 1.3 NG/ML (<3.6)
[2025-01-24 10:46] LABS: ALT/SGPT 20.0 U/L (7.0-40); AST/SGOT 20.0 U/L (<34)
[2025-01-24 10:47] LABS: CPK CREATINE PHOSPHOKINASE 23.0 U/L (46-171); MB/CK RELATIVE INDEX 5.65 (< OR =4)
[2025-01-24 11:04] LABS: INR 1.01
[2025-01-24] MEDS: diphenhydrAMINE 50 MG/ML VIAL IV STA (11:27)
[2025-01-24] MEDS ORDERED: ISOVUE-370 76% 100 ML VIAL As Ordered ONE (12:09)
[2025-01-24] MEDS ORDERED: CENT1TAB12 PO (12:33)
[2025-01-24] MEDS ORDERED: LEVO200T4 PO (12:33)
[2025-01-24] MEDS ORDERED: LEVO25TA5 PO (12:38)
[2025-01-24] MEDS ORDERED: JARD1TAB3 PO (12:38)
[2025-01-24] MEDS ORDERED: PRED10TA2 PO (12:38)
[2025-01-24] MEDS ORDERED: METF10004 PO (12:38)
[2025-01-24] MEDS ORDERED: HOME MED LIST COMPLETE! XX SCH (12:40)
[2025-01-24] MEDS: ACETAMINOPHEN 500 MG TAB PO ONE (12:59)
[2025-01-24] MEDS ORDERED: CARA1TAB6 PO (14:26)
[2025-01-24 14:31] VITALS: BP 169/74; TEMP 96.6; O2SAT 97
== END 2025-01-24 14:42 | disposition home or self-care (01) ==
LOC: EDBD 09:45 → M ED 09:45
DX: R07.9 Chest pain, unspecified (principal); K20.90 Esophagitis, unspecified without bleeding; I25.119 Atherosclerotic heart disease of native coronary artery with unspecified angina pectoris; E11.9 Type 2 diabetes mellitus without complications; K21.9 Gastro-esophageal reflux disease without esophagitis; E78.00 Pure hypercholesterolemia, unspecified; G47.33 Obstructive sleep apnea (adult) (pediatric); Z88.8 Allergy status to other drugs, medicaments and biological substances; Z91.030 Bee allergy status; Z91.041 Radiographic dye allergy status; Z79.1 Long term (current) use of non-steroidal anti-inflammatories (NSAID); Z79.84 Long term (current) use of oral hypoglycemic drugs; Z79.899 Other long term (current) drug therapy; Z79.52 Long term (current) use of systemic steroids
CPT/HCPCS: 70450; 71045; 71275; 72125; 80047; 80076; 82550; 82553; 83690; 84484; 85025; 85610; 93005; 93041; 94760; 96374; 99285; J1200; J2919; Q9967